=== PATIENT | male | born 1950 | race Caucasian/White ===

== ENCOUNTER 2018-09-30 22:50 | Emergency (ER) | payer OTHER, MEDICAID ==
[~2018-09-30] VITALS: Ht 172.7 cm; Wt 84.4 kg
[~2018-09-30 22:50] MED LIST: COL250 PO; DIAZ5TAB7 PO; FAMO-90 PO; FERR325E14 PO; FURO-570 PO; LACT10SO11 PO; METO25TA PO; MIRABULK PO; PAX10 PO; POTA8TER12 PO; ZAR2.5 PO; [UNRECOGNIZED DRUG - CODE] OT
[2018-09-30 23:55] VITALS: BP 98/63
--- NOTE | 2018-10-01 | NUR ---
PT MATT CHAIR ASSISTED TO LOBBY WITH VSS. ACCOMPANIED BY PHOTOGRAPHY INSTRUCTOR.
--- NOTE | 2018-10-01 00:32 | NUR ---
PT WHEELCHAIRED TO ER BED 11
--- NOTE | 2018-10-01 00:35 | NUR ---
PATIENT SENT TO ED FROM [facility] FOR ABD DISTENTION, RASH IN RIGHT AXILLARY, AND NOT ACTING WITHIN NORMAL BASELINE. PT IS NONVERBAL BUT HAS BEEN GRUNTING ALL DAY AND THAT IS NOT USUAL FOR PT. NO VOMITING. PT HAS HISTORY OF GI BLEED, HERNIA, AND COLOSTOMY. VSS; PATIENT POSITIONED FOR COMFORT; HOB ELEVATED; BEDRAILS UP X2; BED DOWN. ER MD MADE AWARE OF PT STATUS.
[2018-10-01] MEDS ORDERED: NACL 0.9% 1,000 ML IV ONE (01:05)
[2018-10-01 01:37] LABS: BASOPHILS % (AUTO) 0.5 % (0.0-2.0); EOSINOPHILS # (AUTO) 0.5 K/uL (0-0.4); EOSINOPHILS % (AUTO) 6.9 % (0.0-4.0); HEMATOCRIT 40.2 % (36-52); HEMOGLOBIN 13.5 g/dL (12.0-18.0); LYMPHOCYTES # (AUTO) 2.3 K/uL (2.0-11.5); LYMPHOCYTES % (AUTO) 34.4 % (20.5-51.1); MEAN CORPUSCULAR HEMOGLOBIN 31 pg (27-31); MEAN CORPUSCULAR HGB CONC 34 g/dL (33-37); MEAN CORPUSCULAR VOLUME 92.5 fL (80-94); MONOCYTES # (AUTO) 0.9 K/uL (0.8-1.0); MONOCYTES % (AUTO) 12.9 % (1.7-9.3); NEUTROPHILS % (AUTO) 45.3 % (42.2-75.2); PLATELET COUNT (AUTO) 245 K/uL (140-450); RED BLOOD CELL COUNT(AUTO) 4.35 MIL/uL (4.20-6.10); RED CELL DISTRIBUTION WIDTH 13.3 % (11.6-13.7); WHITE BLOOD COUNT (AUTO) 6.6 K/uL (4.8-10.8)
[2018-10-01 01:44] LABS: ANION GAP 8.2 (8-16); CARBON DIOXIDE 30.9 mmol/L (21-32); CREATININE 0.9 mg/dL (0.7-1.3); POTASSIUM 4.1 mmol/L (3.5-5.1)
--- NOTE | 2018-10-01 01:45 | NUR ---
STARTED 20G IV TO RIGHT WRIST. PT TOLERATED WELL.
[2018-10-01 01:52] LABS: ALBUMIN 2.8 g/dL (3.4-5.0); TOTAL BILIRUBIN 0.2 mg/dL (0.0-1.0)
[2018-10-01 01:53] LABS: PROTHROMBIN TIME 9.4 secs (10.8-13.4)
--- NOTE | 2018-10-01 02:40 | NUR ---
OBTAINED URINE USING STRAIGHT CATH. PT TOLERATED WELL.
[2018-10-01 02:49] LABS: APPEARANCE,URINE CLEAR (CLEAR); BILIRUBIN,URINE NEGATIVE (NEGATIVE); BLOOD, URINE NEGATIVE (NEGATIVE); COLOR,URINE YELLOW (YELLOW); LEUKOCYTE ESTERASE ,URINE NEGATIVE (NEGATIVE); NITRITE, URINE NEGATIVE (NEGATIVE); UGLUCOSE NEGATIVE (NEGATIVE)
--- NOTE | 2018-10-01 03:40 | NUR ---
VSS. NO SIGNS OF DISTRESS NOTED. WILL CONTINUE TO MONITOR.
--- NOTE | 2018-10-01 04:50 | NUR ---
DR. GOODMAN AT PT BEDSIDE EXPLAINING RESULTS TO PT AND CAREGIVER. WILL GIVE D/C INSTRUCTIONS AND HELP ASSIST PT TO WHEELCHAIR.
[2018-10-01 05:03] VITALS: BP 118/65
--- NOTE | 2018-10-01 05:03 | NUR ---
Patient discharged with v/s stable. Written and verbal after care instructions given and explained. Patient alert, oriented and verbalized understanding of instructions. Wheel Chair Assisted with by caregiver. All questions addressed prior to discharge. ID band removed. Patient advised to follow up with PMD. Rx of MINERAL OIL 30ML, LACTULOSE 10G/15ML SOLUTION given. Patient educated on indication of medication including possible reaction and side effects. Opportunity to ask questions provided and answered.
== END 2018-10-01 05:03 | disposition home or self-care (01) ==
LOC: MED 22:50
DX: K59.09 Other constipation (principal); K92.0 Hematemesis; K46.9 Unspecified abdominal hernia without obstruction or gangrene; K21.9 Gastro-esophageal reflux disease without esophagitis; I49.9 Cardiac arrhythmia, unspecified; Z79.899 Other long term (current) drug therapy; Z88.5 Allergy status to narcotic agent
CPT/HCPCS: 36415; 74018; 76705; 80053; 81003; 85025; 85610; 85730; 99284; C1758; Q0092

== ENCOUNTER 2018-10-08 10:29 | Inpatient (IN) | payer OTHER, MEDICAID ==
[~2018-10-08] VITALS: Ht 172.7 cm; Wt 93.0 kg
[2018-10-08 10:30] VITALS: BP 111/80
--- NOTE | 2018-10-08 10:30 | NUR ---
68 Y MALE BIB CAREGIVER FROM [place] C/O CONSTIPATION SINCE September. PER CAREGIVER, PT WAS TAKEN TO SEE ON THE AND WAS DIAGNOSED WITH CONSTIPATION. SENT HOME WITH MINEROL OIL AND LACTULOSE. NO RELIEF. CAREGIVER STATES PT IS STILL CONSTIPATED. LAST BM YESTERDAY MEDIUM. CAREGIVER STATES HE HAS BEEN GRUNTING SINCE HIS CONSTIPATION STARTED. PT HAS A HERNIA ON THE LOWER ABDOMEN. COLOSTOMY ON L ABDOMEN SIDE. BED RAIL X 2, BED IS DOWN AND LOCKED, CAREGIVER AT BEDSIDE, ERMD NOTIFIED. PMH-, HTN, LIVER CYSTS, CARDIAC ARRHYTHMIA, HEART MURMUR, LIPOMA RT FLANK, S/P FRACTURE RT HUMERAS, COLOSTOMY, HW PLEURAL EFFUSION GERD
--- NOTE | 2018-10-08 10:34 | NUR ---
PATIENT ASSISTED TO BED 8.
[2018-10-08] MEDS ORDERED: NACL 0.9% 2,000 ML IV SCH (11:27)
[2018-10-08] MEDS ORDERED: PANTOPRAZOLE 40 MG INJ VIAL IVP ONE (11:30)
[2018-10-08] MEDS ORDERED: KETOROLAC 30 MG/ML VIAL IVP ONE (11:30)
[2018-10-08] MEDS ORDERED: ONDANSETRON 4 MG/2 ML VIAL IVP ONE (11:30)
--- NOTE | 2018-10-08 11:30 | NUR ---
DR BROCK AT BEDSIDE
[2018-10-08] MEDS ORDERED: HALOPERIDOL IM 5 MG/ML VIAL IM ONE (12:05)
[2018-10-08] MEDS ORDERED: diphenhydrAMINE 50 MG/ML VIAL IM ONE (12:05)
[2018-10-08 12:40] LABS: MEAN CORPUSCULAR HEMOGLOBIN 32 pg (27-31); MEAN CORPUSCULAR HGB CONC 34 g/dL (33-37)
[2018-10-08 12:44] LABS: BASOPHILS # (AUTO) 0.1 K/uL (0.00-0.22); BASOPHILS % (AUTO) 0.6 % (0.0-2.0); EOSINOPHILS # (AUTO) 0.6 K/uL (0-0.4); EOSINOPHILS % (AUTO) 6.4 % (0.0-4.0); LYMPHOCYTES # (AUTO) 1.8 K/uL (2.0-11.5); LYMPHOCYTES % (AUTO) 19.5 % (20.5-51.1); MEAN CORPUSCULAR VOLUME 92.5 fL (80-94); MONOCYTES # (AUTO) 0.9 K/uL (0.8-1.0); MONOCYTES % (AUTO) 10.4 % (1.7-9.3); NEUTROPHILS # (AUTO) 5.7 K/uL (1.8-7.7); NEUTROPHILS % (AUTO) 63.1 % (42.2-75.2); PLATELET COUNT (AUTO) 254 K/uL (140-450); RED BLOOD CELL COUNT(AUTO) 4.76 MIL/uL (4.20-6.10); RED CELL DISTRIBUTION WIDTH 13.4 % (11.6-13.7); WHITE BLOOD COUNT (AUTO) 9.1 K/uL (4.8-10.8)
[2018-10-08 12:53] LABS: ANION GAP 11.2 (8-16); CREATININE 0.8 mg/dL (0.7-1.3); POTASSIUM 4.2 mmol/L (3.5-5.1)
[2018-10-08 12:59] LABS: ALBUMIN 3.2 g/dL (3.4-5.0); TOTAL BILIRUBIN 0.3 mg/dL (0.0-1.0)
[2018-10-08 13:09] LABS: ACETONE, SERUM NEGATIVE (NEGATIVE)
[2018-10-08 13:11] LABS: APPEARANCE,URINE CLEAR (CLEAR); BILIRUBIN,URINE NEGATIVE (NEGATIVE); BLOOD, URINE NEGATIVE (NEGATIVE); COLOR,URINE YELLOW (YELLOW); LEUKOCYTE ESTERASE ,URINE NEGATIVE (NEGATIVE); NITRITE, URINE NEGATIVE (NEGATIVE); PH,URINE 5.5 (5.0-9.0); UGLUCOSE NEGATIVE (NEGATIVE)
[2018-10-08 13:11] LABS: AMYLASE 37 U/L (25-115); LIPASE 118 U/L (73-393); MAGNESIUM 2.5 mg/dL (1.8-2.4)
[2018-10-08 13:19] LABS: PROTHROMBIN TIME 10.1 secs (10.8-13.4)
--- NOTE | 2018-10-08 14:00 | NUR ---
Patient appears to be resting comfortably in bed. Respirations even and unlabored.
[2018-10-08] MEDS ORDERED: PANT40EC PO (14:42)
[2018-10-08] MEDS ORDERED: TAMS0.4C96 PO (14:43)
[2018-10-08] MEDS ORDERED: POTA20TE15 PO (14:45)
[2018-10-08] MEDS ORDERED: LORA10TA19 PO (14:48)
[2018-10-08] MEDS ORDERED: MULT15LI1 PO (14:50)
[2018-10-08] MEDS ORDERED: NACL 0.9% 1,000 ML IV SCH (15:26)
[2018-10-08] MEDS ORDERED: ACETAMINOPHEN 325 MG TAB PO PRN (15:30)
[2018-10-08] MEDS ORDERED: DOCUSATE SODIUM 100 MG GELCAP PO PRN (15:30)
[2018-10-08] MEDS ORDERED: LORazepam 2 MG/ML VIAL IM/IVP PRN (15:30)
--- NOTE | 2018-10-08 16:18 | NUR ---
Patient will be admitted to care of DR. BUCK. Admited to TELE. Will go to room 107-B. Belongings list completed. Report to CRUZ RIDDLE.
[2018-10-08 16:30] VITALS: BP 123/49
--- NOTE | 2018-10-08 16:30 | NUR ---
RECEIVED PT FROM ER NURSE VIA TERRA, PT IS NON-VERBAL AND A FALL RISK, PT HAS AN IV LINE ON THE RT HAND G. 24 ON SALINE LOCK, PT HAS A COLOSTOMY IN PLACE AND HAS A VENTRAL HERNIA NOTED. VITAL SIGNS TAKEN AND BP IS 123/49, PULSE 60, TEMP. IS 97.3 O2 SATURATION AT 92% AND RESPIRATION IS 18/MIN. PT WAS CLEANED AND COLOSTOMY BAG WAS CHANGED AND MADE COMFORTABLE ON THE BED. NO SIGN OF DISTRESS NOTED AND WILL MONITOR PT.
[2018-10-08 16:32] LABS: PHOSPHORUS 4.5 mg/dL (2.5-4.9); THYROID STIMULATING HORMONE 2.93 uIU/mL (0.34-3.74)
--- NOTE | 2018-10-08 16:45 | NUR ---
O2 AT 2L VIA NC WAS PLACED TO THE PT NOW, NO SIGN OF DISTRESS NOTED AND WILL MONITOR PT.
[2018-10-08] MEDS: DEXT 5% / NACL 0.45% 1,000 ML IV SCH (17:00)
--- NOTE | 2018-10-08 17:00 | NUR ---
PT WAS STARTED ON D5 1/2 NS AT 10ML/HR RATE.
--- NOTE | 2018-10-08 18:52 | NUR ---
U/S OF THE MEDIASTINUM IS BEING DONE TO PT NOW.
--- NOTE | 2018-10-08 19:25 | NUR ---
ENDORSED PT TO DENTIST ATTENDANT NURSE, NUBIA FOR CONTINUITY OF CARE. PT IS STABLE AT THIS TIME.
--- NOTE | 2018-10-08 19:26 | NUR ---
RECEIVED PT FROM ARCADIO RN PT AOX1 NONVERBAL ON BED REST IV ON RT HAND GAUGE #24 INFUSING WELL. COLOSTOMY BAG WITH LIQUID STOOL PT HAS HX OF CONSTIPATION , ON TELEMETRY SB INITIAL ASSESSMENT DONE
[2018-10-08 20:00] VITALS: BP 114/61
[2018-10-08] MEDS: DIAZEPAM 5 MG TAB PO SCH (20:13)
[2018-10-08] MEDS ORDERED: METOPROLOL 25 MG TAB PO SCH (21:00)
--- NOTE | 2018-10-08 21:29 | NUR ---
PT REPOSITINED NOT SIGN OF DISTRESS NOTED COLOSTOMY BAG WITH LIQUID STOOL
[2018-10-09] VITALS: BP 122/61
--- NOTE | 2018-10-09 | NUR ---
PT ON CLOSE OBSERVATION SLEEPING WELL AT THIS TIME NOT SIGN OF DISTRESS NOTED ON TELMETRY SB BBB
--- NOTE | 2018-10-09 03:00 | NUR ---
PT SLEEPING REPOSITIONED Q2H COLOSTOMY BAG IS EMPY ON TELEMETRY SR
[2018-10-09 04:00] VITALS: BP 137/70
--- NOTE | 2018-10-09 05:00 | NUR ---
SPONGE BATH GIVEN LINEN CHANGED NOT DISTRESS NOTED PT COLOSTOMY BAG HAS SEMILIQUID STOOL DOCUMENTED NOT DISTRESS NOTED
--- NOTE | 2018-10-09 05:43 | NUR ---
PT AWAKE HLODING HIS TOY NONVERBAL ON TELMETRY SR COLOSTOMY EMPTY, IV ON RT HAND INFUSING WELL
--- NOTE | 2018-10-09 06:43 | NUR ---
PT DOES NOT COMPLAINT OF DISCOMFORT, PT HAS BEEN REPOSITIONED Q2H REMAIN STABLE AT THIS TIME
[2018-10-09 07:01] LABS: BASOPHILS % (AUTO) 0.6 % (0.0-2.0); EOSINOPHILS # (AUTO) 0.5 K/uL (0-0.4); EOSINOPHILS % (AUTO) 7.3 % (0.0-4.0); HEMOGLOBIN 13.9 g/dL (12.0-18.0); LYMPHOCYTES # (AUTO) 1.4 K/uL (2.0-11.5); LYMPHOCYTES % (AUTO) 21.8 % (20.5-51.1); MEAN CORPUSCULAR HEMOGLOBIN 32 pg (27-31); MEAN CORPUSCULAR HGB CONC 34 g/dL (33-37); MEAN CORPUSCULAR VOLUME 93.3 fL (80-94); MONOCYTES # (AUTO) 0.8 K/uL (0.8-1.0); MONOCYTES % (AUTO) 12.2 % (1.7-9.3); NEUTROPHILS # (AUTO) 3.8 K/uL (1.8-7.7); NEUTROPHILS % (AUTO) 58.1 % (42.2-75.2); PLATELET COUNT (AUTO) 223 K/uL (140-450); RED CELL DISTRIBUTION WIDTH 13.6 % (11.6-13.7); WHITE BLOOD COUNT (AUTO) 6.5 K/uL (4.8-10.8)
--- NOTE | 2018-10-09 07:05 | NUR ---
RECEIVED PT FROM TYING IN MACHINE OPERATOR NURSENUBIA, PT IS AWAKE AND LYING ON THE BED WITH SIDE RAILS UP AND CALL, LIGHT WITHIN REACH, BED ALARM ACTIVATED, FALL PRECAUTION INITIATED, PT HAS AN IV LINE ON THE RT HAND G. 24 WITH NS AT 10ML/HR INFUSING, PT HAS A COLOSTOMY BAG IN PLACE, INTACT WITH DRAIN OF FECES, LOOSE, IN MODERATE AMOUNT, PT IS NON-VERBAL BUT LOOKS INN THE EYE WHEN CALLED BY NAME, RESPIRATION IS EVEN, ON NPO EXCEPT MEDICATIONS STATUS, AND NO SIGN OF DISTRESS NOTED, WILL MONITOR PT.
[2018-10-09 07:30] LABS: ANION GAP 12.2 (8-16); CARBON DIOXIDE 28.4 mmol/L (21-32); CHOL/HDL RATIO 4.3 (1-4.5); CREATININE 0.7 mg/dL (0.7-1.3); MAGNESIUM 2.3 mg/dL (1.8-2.4); PHOSPHORUS 3.8 mg/dL (2.5-4.9); POTASSIUM 4.6 mmol/L (3.5-5.1)
--- NOTE | 2018-10-09 07:49 | NUR ---
PATIENT HAS BEEN SCREENED AND CATEGORIZED HIGH NUTRITION RISK. PATIENT WILL BE SEEN WITHIN 1-2 DAYS OF ADMISSION. 10/09/18-10/10/[address] Addendum: 10/10/18 at [address] CORRECTION: PATIENT HAS BEEN SCREEN AND CATEGORIZED MODERATE NUTRITION RISK. PATIENT WILL BE SEEN AND ASSESSED WITHIN 3-5 DAYS OF ADMISSION 10/11/18 -10/13/[address]
[2018-10-09 08:00] VITALS: BP 124/56
--- NOTE | 2018-10-09 08:20 | NUR ---
PT IS AWKE AND LYING ON THE BED, WITH SIDE RAILS UP AND CALL LIGHT WITHIN REACH, VITAL SIGNS TAKEN AND IS WITHIN NORMAL LIMIT, NO SIGN OF DISTRESS NOTED AND WILL CONTINUE TO MONITOR PT.
[2018-10-09] MEDS ORDERED: POLYETHYLENE GLYCOL 17 GM/PKT PO SCH (09:00)
[2018-10-09] MEDS ORDERED: PANTOPRAZOLE 40 MG TABEC PO SCH (09:00)
[2018-10-09] MEDS: POLYETHYLENE GLYCOL 17 GM/PKT PO SCH (09:45)
[2018-10-09] MEDS: LORATADINE 10 MG TAB PO SCH (09:46)
[2018-10-09] MEDS: DOCUSATE SODIUM 250 MG GELCAP PO SCH ×3 (09:46→18:07)
[2018-10-09] MEDS: TAMSULOSIN 0.4 MG CAP PO SCH (09:46)
[2018-10-09] MEDS: DIAZEPAM 5 MG TAB PO SCH ×2 (09:47→20:59)
--- NOTE | 2018-10-09 09:47 | NUR ---
PT IS AWAKE AND IS LYING ON THE BED WITH SIDE, VITAL SIGNS CHECKED AND BP IS 124/56, PULSE IS 66, O2 SATURATION IS 97%, TEMP. IS 97.9 AND RESPIRATION IS 18/MIN, MEDICATIONS GIVEN, CRUSHED AND ASPIRATION PRECAUTION WAS INITIATED, PT TOLERATED IT, NO SIGN OF DISTRESS NOTED AND WILL MONITOR PT.
--- NOTE | 2018-10-09 11:15 | NUR ---
DR. YUN CAME TO THE PT'S ROOM AND ASSESSED THE PT, SURGEON TALKING TO DR. PEREZ WELL REGARDING THE POC FOR THE PT.
[2018-10-09 12:00] VITALS: BP 131/64
--- NOTE | 2018-10-09 12:30 | NUR ---
PT IS AWAKE AND LYING ON HIS RT LATERAL SIDE, VITAL SIGNS CHECKED AND BP IS 131/64, PULSE IS 68, TEMPERATURE IS 97.7, O2 SATURATION IS 985 AND RESPIRATION IS 18/MIN, NO SIGN OF DISTRESS NOTED TO THE PT. WILL MONITOR.
--- NOTE | 2018-10-09 13:49 | NUR ---
PT IS AWAKE AND MEDICATION WAS GIVEN AND PT TOLERATED IT. NO SIGN OF DISTRESS NOTED. WILL MONITOR PT.
[2018-10-09 16:00] VITALS: BP 123/72
[2018-10-09] MEDS: DEXT 5% / NACL 0.45% 1,000 ML IV SCH (16:05)
--- NOTE | 2018-10-09 16:33 | NUR ---
PT IS AWAKE AND VITAL SIGNS CHECKED DONE AND RESULT IS BP IS 123/72, PULSE IS 72, O2 SATURATION IS 96%, TEMPERATURE IS 97.6 AND RESPIRATION IS 18/MIN, NO SIGN OF DISTRESS NOTED AND WILL MONITOR PT.
--- NOTE | 2018-10-09 17:40 | NUR ---
CALLED JOHANNY ROSE AT [phone] AND ASKED TO OBTAIN CONSENT FOR SURGERY FOR THE PT AND JOHANNY SAID TO CALL [facility] AT [phone] AND LOOK FOR CHON THEODORE WHO IS THE TALLOW MAKER WHO CAN GIVE CONSENT FRO SURGERY FOR THE PT., INFORMED DR. PEREZ.
--- NOTE | 2018-10-09 17:40 | NUR ---
SPOKE TO JOHANNY ROSE, CARE PROVIDER OF PT AND SHE SAID TO CALL [facility] AND ASK FOR CHON THEODORE WHO IS THE CHIEF PASSENGER SHIP STEWARD/STEWARDESS, WHO WILL BE ABLE TO GIVE CONSENT FOR THE SURGERY OF THE PT, DR. PEREZ INFORMED.
--- NOTE | 2018-10-09 18:30 | NUR ---
CAME TO PT'S ROOM AND SAW THAT PT HAD BEEN COUGHING AND SECRETIONS CAN BE HEARD WHEN HE COUGHS, SUCTIONED SOME SECRETIONS, CALLED RT AND ASSISTED IN SUCTIONING, RT ATTEMPTED TO DO NST BUT PT IS RESISTING, O2 SATURATION WAS CHECKED AND IS 95% WITH O2 2L NC. VITALS CHECKED AND IS WITHIN NORMAL LIMIT. WILL MONITOR PT,
--- NOTE | 2018-10-09 19:02 | NUR ---
INFORMED DR. MAGAÑA THAT CONSENT WAS NOT OBTAINED BECAUSE THE PERSON THAT IS AUTHORIZED TO GIVE CONSENT FOR SURGERY FOR THE PT HAS NOT BEEN REACHED.
--- NOTE | 2018-10-09 19:20 | NUR ---
ENDORSED PT TO CONTROL BOARD OPERATOR NURSE, PLACIDO FOR CONTINUITY OF CARE, PT IS STABLE AT THIS TIME.
--- NOTE | 2018-10-09 19:21 | NUR ---
RECEIVED REPORT FROM DAY SHIFT RN ARCADIO FOR CONTINUITY OF CARE. PT IS NON-VERBAL ON 2L O2 VIA NASAL CANNULA. PT UNABLE TO MAKE NEEDS KNOWN, AND UNABLE TO FOLLOW COMMANDS. PT IS BEDBOUND, FALL PRECAUTIONS IN PLACE. PT SKIN IS INTACT, BUT DOES HAVE A COLOSTOMY IN PLACE. PT HAS A 24G IV TO RIGHT HAND, ASYMPTOMATIC AND INTACT. VITAL SIGNS WITHIN NORMAL LIMITS. PT STABLE, FLACC 0, NO SIGNS OF DISTRESS NOTED AT THIS TIME. PT POSITIONED FOR COMFORT. BED IN LOWEST POSITION, BED ALARM ON. WILL CONTINUE TO MONITOR.
[2018-10-09 20:00] VITALS: BP 143/71
--- NOTE | 2018-10-09 21:00 | NUR ---
ADMINISTERED SCHEDULED MEDICATION, PT TOLERATED WELL. NO PROBLEMS NOTED WITH SWALLOWING. NO SIGNS OF DISTRESS NOTED AT THIS TIME. PT POSITIONED FOR COMFORT. BED IN LOWEST POSITION, BED ALARM ON. WILL CONTINUE TO MONITOR.
[2018-10-10] VITALS: BP 105/58
--- NOTE | 2018-10-10 | NUR ---
VITAL SIGNS WITHIN NORMAL LIMITS. PT STABLE, FLACC-0, NO SIGNS OF DISTRESS NOTED AT THIS TIME. PT POSITIONED FOR COMFORT. BED IN LOWEST POSITION, BED ALARM ON. WILL CONTINUE TO MONITOR.
--- NOTE | 2018-10-10 02:23 | NUR ---
PT RESTING, FLACC 0, NO SIGNS OF DISTRESS NOTED AT THIS TIME. PT POSITIONED FOR COMFORT. BED IN LOWEST POSITION, BED ALARM ON. WILL CONTINUE TO MONITOR.
[2018-10-10 04:00] VITALS: BP 111/54
--- NOTE | 2018-10-10 04:00 | NUR ---
VITAL SIGNS WITHIN NORMAL LIMITS. PT STABLE, DENIES PAIN, NO SIGNS OF DISTRESS NOTED AT THIS TIME. PT POSITIONED FOR COMFORT. BED IN LOWEST POSITION, BED ALARM ON. WILL CONTINUE TO MONITOR.
--- NOTE | 2018-10-10 05:15 | NUR ---
PT IV TO RIGHT HAND CAME OUT. STARTED A 20G IV TO RIGHT FOREARM IN ONE TRY. PT TOLERATED WELL.
[2018-10-10 07:27] LABS: BASOPHILS # (AUTO) 0.1 K/uL (0.00-0.22); BASOPHILS % (AUTO) 0.7 % (0.0-2.0); EOSINOPHILS # (AUTO) 0.4 K/uL (0-0.4); EOSINOPHILS % (AUTO) 5.2 % (0.0-4.0); HEMATOCRIT 41.8 % (36-52); HEMOGLOBIN 13.9 g/dL (12.0-18.0); LYMPHOCYTES # (AUTO) 1.8 K/uL (2.0-11.5); LYMPHOCYTES % (AUTO) 24.4 % (20.5-51.1); MEAN CORPUSCULAR HEMOGLOBIN 31 pg (27-31); MEAN CORPUSCULAR HGB CONC 33 g/dL (33-37); NEUTROPHILS # (AUTO) 4.2 K/uL (1.8-7.7); NEUTROPHILS % (AUTO) 55.7 % (42.2-75.2); PLATELET COUNT (AUTO) 218 K/uL (140-450); RED BLOOD CELL COUNT(AUTO) 4.49 MIL/uL (4.20-6.10); RED CELL DISTRIBUTION WIDTH 13.6 % (11.6-13.7); WHITE BLOOD COUNT (AUTO) 7.5 K/uL (4.8-10.8)
--- NOTE | 2018-10-10 07:34 | NUR ---
ENDORSED PT TO DAY SHIFT CRUZ MOSQUEDA FOR CONTINUITY OF CARE, PT IN STABLE CONDITION.
--- NOTE | 2018-10-10 07:36 | NUR ---
RECEIVED BEDSIDE REPORT FROM CRUZ CUMMINS. PATIENT ON TELE MONITOR AND STANDARD PRECAUTIONS IN PLACE. PATIENT APHASIC AND ON 2 L O2 VIA NC, NO DISTRESS NOTED. SKIN INTACT. IV ON R FA 20 G INFUSING D5 1/2 NS AT 10 TKO, IV ASYMPTOMATIC PATENT AND INTACT. PATIENT UNABLE TO AMBULATE AND W COLOSTOMY BAG. BED IN LOW POSITION, CALL LIGHT WITHIN REACH, SIDE RAILS X2 UP. WILL CONTINUE TO MONITOR. Addendum: 10/10/18 at 1721 by Roseline Borrero RN PATIENT ON WOUND CARE BED.
[2018-10-10 08:00] VITALS: BP 116/71
[2018-10-10 08:03] LABS: ANION GAP 14.1 (8-16); CARBON DIOXIDE 25.2 mmol/L (21-32); CREATININE 0.7 mg/dL (0.7-1.3); POTASSIUM 4.3 mmol/L (3.5-5.1)
[2018-10-10 08:04] LABS: MAGNESIUM 2.1 mg/dL (1.8-2.4); PHOSPHORUS 3.3 mg/dL (2.5-4.9)
[2018-10-10] MEDS ORDERED: LANSOPRAZOLE 30 MG CAPDR PO SCH (09:12)
[2018-10-10] MEDS: DIAZEPAM 5 MG TAB PO SCH ×2 (09:13→21:00)
[2018-10-10] MEDS: POLYETHYLENE GLYCOL 17 GM/PKT PO SCH (09:13)
[2018-10-10] MEDS: TAMSULOSIN 0.4 MG CAP PO SCH (09:13)
[2018-10-10] MEDS: LORATADINE 10 MG TAB PO SCH (09:13)
[2018-10-10] MEDS ORDERED: DOCUSATE 100 MG/10 ML UDC PO SCH (09:15)
--- NOTE | 2018-10-10 09:17 | NUR ---
ADMINISTERED SCHEDULED MEDS. PATIENT TOLERATED WELL. WILL CONTINUE TO MONITOR.
--- NOTE | 2018-10-10 09:22 | NUR ---
CALLED [facility] [phone] REGARDING PATIENT AND LEFT A MESSAGE FOR CHON THEODORE, RELAY RECORD CLERK TO OBTAIN CONSENT FOR POSSIBLE SURGERY TODAY. WILL TRY AGAIN LATER. CHARGE NURSE AWARE.
--- NOTE | 2018-10-10 10:30 | NUR ---
Child And Adolescent Therapist Note: I called and spoke with Shoe Packer Michelle Spann from [facility] (intermediate care facility) / . I obtained the following information from Michelle about patient. Patient has been living at [facility] for almost 1 year. He does not have any family. His shell freezing machine operator at [facility] is Chayo Brooks . Chayo should be contacted regarding medical consents. Patient is not able to ambulate. He has a wheelchair and elizabeth lift at [facility]. He was not receiving home health services prior to hospital admission. He is not conserved nor has any family members. [facility] is not able to accommodate patient if he needs abx ivs upon discharge. Michelle drives patient to pcp's office. Pcp also follows up with patient at [facility]. Michelle is able to provide transportation for patient to return to their facility upon discharge, 11/02. Chemotherapist and/or Machine Sneller will follow up as needed.
--- NOTE | 2018-10-10 10:57 | NUR ---
Child Nutrition Director Note: requested assistance with obtaining Chayo Trinh from [facility]'s contact information. I called and spoke with Michelel Spann . I requested Chayo's contact information. Michelle provided me with Chayo's phone number . I provided with Chayo's phone number.
--- NOTE | 2018-10-10 11:05 | NUR ---
WOUND CARE EVALUATION NOTE: REASON FOR EVALUATION: COLOSTOMY CARE SKIN ASSESSMENT DONE WITH THIS 68 Y/O MALE, LLQ ABDOMINAL COLOSTOMY, STOMA PINK, FUNCTIONING, MARINA-STOMA SKIN INTACT. SEMI LIQUID STOOL OUT PUT OBSERVED. RECOMMENDATIONS: -OSTOMY CARE PER PROTOCOL AND DURING OSTOMY CARE PLEASE FOLLOW INSTRUCTION BELOW: -CHECK MARINA STOMA SKIN CONDITION EVERY TIME WAFER CHANGED Q 5 DAYS AND PRN IF DISPLACED -APPLY SKIN PREP TO MARINA-OSTOMY SKIN -APPLY STOMA ADHESIVE PAST TO THE WAFER, NEAR THE EDGE OF STOMA SKIN AREA, PAT FLAT. APPLY SKIN PREP TO MARINA-STOMA SKIN -MAY USE 2- PIECES KALIE OSTOMY DEVICES WITH 1 3/4"(44CM), CUT TO FIT THE STOMA EXACTLY. NO SKIN SHOWING. APPLY PRE-CUT WAFER TO OSTOMY AND ATTACHED POUCH TO WAFER. CHANGE WAFER Q5 DAYS. -EMPTY AND RINSE POUCH WHEN IT IS 1/3 FULL. CHANGE POUCH Q5 DAYS AND PRN IF LEAK ALL ABOVE RECOMMENDATION DISCUSSED WITH PRIMARY RN AND DR. ANDERSON.
[2018-10-10 12:00] VITALS: BP 134/58
--- NOTE | 2018-10-10 12:56 | NUR ---
PATIENT SLEEPING, ON 2 L O2 NC WITH NO DISTRESS NOTED. WILL CONTINUE TO MONITOR.
--- NOTE | 2018-10-10 13:43 | NUR ---
Coach Cleaner Note: I informed Megan Ribeiro from Admitting Dept, Chayo Brooks from [facility] is the person Admitting Dept should contact regarding patient's admission forms and requested for her to include Chayo's contact information on patient's face sheet.
[2018-10-10] MEDS: DOCUSATE 100 MG/10 ML UDC PO SCH ×2 (14:02→17:00)
--- NOTE | 2018-10-10 14:08 | NUR ---
PATIENT BROUGHT TO SURGERY WITH 2 OR NURSES. CONSENT FORM IN CHART.
[2018-10-10] MEDS ORDERED: ROCURONIUM 50 MG/5 ML VIAL IV ONE (14:40)
[2018-10-10] MEDS ORDERED: GLYCOPYRROLATE 0.2 MG/ML VIAL ONE (14:40)
[2018-10-10] MEDS ORDERED: NEOSTIGMINE 1:1000 10 MG/10 ML VIAL ONE (14:40)
[2018-10-10] MEDS ORDERED: DEXAMETHASONE 4 MG/ML VIAL ONE (14:40)
[2018-10-10] MEDS ORDERED: LIDOCAINE 2% 100 MG/5 ML SYR IVP ONE (14:40)
[2018-10-10] MEDS ORDERED: PROPOFOL 200 MG/20 ML VIAL IV ONE (14:40)
[2018-10-10] MEDS ORDERED: SUCCINYLCHOLINE CHLORIDE 200 MG/10 ML VIAL IVP ONE (14:40)
[2018-10-10] MEDS ORDERED: ePHEDrine 50 MG/ML VIAL ONE (14:40)
[2018-10-10] MEDS ORDERED: KETOROLAC 30 MG/ML VIAL ONE (14:40)
[2018-10-10] MEDS ORDERED: DESFLURANE 240 ML BTL INH ONE (14:40)
[2018-10-10] MEDS ORDERED: MIDAZOLAM 2 MG/2 ML VIAL ONE (14:52)
[2018-10-10] MEDS ORDERED: fentaNYL 0.05 MG/ML VIAL ONE (14:52)
[2018-10-10] MEDS ORDERED: BUPIVACAINE-MPF/EPI 0.5% 30 ML VIAL INJ ONE (14:54)
[2018-10-10] MEDS ORDERED: ceFAZolin 1,000 MG VIAL ONE (14:54)
[2018-10-10] MEDS: DEXT 5% / NACL 0.45% 1,000 ML IV SCH (16:05)
[2018-10-10] MEDS ORDERED: HYDROmorphone 1 MG/ML AMP IVP PRN ×2 (17:25→17:45)
[2018-10-10] MEDS ORDERED: ONDANSETRON 4 MG/2 ML VIAL IVP PRN (17:25)
[2018-10-10] MEDS ORDERED: KETOROLAC 30 MG/ML VIAL IM PRN (17:45)
[2018-10-10 18:15] VITALS: BP 130/95
--- NOTE | 2018-10-10 18:15 | NUR ---
RECEIVED PT FROM OR, OBTAINED REPORT FROM PCAU NURSE, PT IS OPEN EYES, APHASIC, UNABLE TO FOLLOW COMMANDS, VSS, FLACC 0, NO S/S OF DISTRESS, CLEAR LUNG SOUNDS ARLETTE, ON SIMPLE MASK AT 6 L, O2 SAT 95%, NO S/S OF CHEST PAIN, SR ON MEDICAL RESEARCH ASSISTANT, SOFT ABDOMEN WITH COLOSTOMY, SURGICAL WOUND TO THE MEDDLE OF ABDOMEN WITH BASILIO DRAIN, F/C PLACED AT OR, CLEAR YELLOW URINE NOTED VIA GRAVITY, SKIN IS WARM AND DRY TO TOUCH, IV SITE TO RIGHT FOREARM 20GA, PATENT AND SL, CONTRACTURES TO ALL EXTREMITIES NOTED. HOB ELEVATED TO 30 DEGREES, SAFETY MEASURES IN PLACE, WILL CONTINUE TO MONITOR.
--- NOTE | 2018-10-10 18:30 | NUR ---
OBTAINED REPORT FROM FOOD STAND MANAGER VIA TELEPHONE.
--- NOTE | 2018-10-10 18:45 | NUR ---
DR. YUN CAME IN TO SEE PT AT BEDSIDE, WILL FOLLOW UP WITH NEW ORDERS.
[2018-10-10] MEDS: PIPER/TAZO 3.375GM/D5W PREMIX 50 ML IV SCH ×2 (18:53→23:03)
--- NOTE | 2018-10-10 19:10 | NUR ---
REPORT GIVEN TO VICE PRESIDENT OF RECRUITING NURSE FOR CONTINUE OF CARE, PT IS IN STABLE CONDITION AT THIS TIME.
--- NOTE | 2018-10-10 19:11 | NUR ---
RECEIVED REPORT FROM AM SHIFT. PT NONVERBAL. OPENS EYES SPONTANEOUSLY. LUNG SOUNDS CLEAR BILAT. ON SIMPLE MASK 6LPM. NPO EXCEPT MEDS AT THIS TIME. SR ON MONITOR. NO EDEMA PRESENT. ABD SOFT NONTENDER. BOWEL SOUNDS HYPOACTIVE. COLOSTOMY TO LUQ. F/C IN PLACE. BLADDER NONDISTENDED. R FA 20 G. DRESSING INTACT. EXTREMITIES CONTRACTED. SURGICAL INCISITON MIDLINE ABD NOTED. BED IN LOWEST POSITION. HOB 30. SIDE RAILS UP X 4. WILL CONTINUE TO MONITOR.
[2018-10-10 20:00] VITALS: BP 113/68
--- NOTE | 2018-10-10 20:18 | NUR ---
DR. MAGAÑA AT BEDSIDE AT THIS TIME. UPDATED ON PTS CURRENT CONDITION. WILL CONTINUE TO FOLLOW UP ANY ADDITIONAL ORDERS.
--- NOTE | 2018-10-10 20:28 | NUR ---
LOC NON AROUSABLE POST OP HERNIA SURGERY UNABLE TO FOLLOW COMMANDS FOR INCENTIVE SPIROMETRY THERAPY LOOM INSPECTOR WILL ATTEMPT AT A LATER TIME
--- NOTE | 2018-10-10 20:40 | NUR ---
PT ABLE TO TRACK MOVEMENTS. APHASIC. NO SIGNS OF ACUTE DISTRESS AT THIS TIME. DRESSING TO MIDLINE ABD CLEAN DRY INTACT, BASILIO DRAIN IN PLACE
--- NOTE | 2018-10-10 23:19 | NUR ---
VALIUM NOT GIVEN AT THIS TIME. PT SLEEPING. MADE AWARE
[2018-10-11] VITALS (8 sets, daily range): BP systolic 102–147; BP diastolic 55–98
--- NOTE | 2018-10-11 00:24 | NUR ---
PT RESTING QUIETLY AT THIS TIME. NO SIGNS OF ACUTE DISTRESS NOTED.
--- NOTE | 2018-10-11 02:27 | NUR ---
PT TURNED AND REPOSITIONED AT THIS TIME. DRESSING ABD CLEAN DRY INTACT. BASILIO DRAIN PRESENT
[2018-10-11] MEDS: PIPER/TAZO 3.375GM/D5W PREMIX 50 ML IV SCH ×2 (05:13→17:04)
--- NOTE | 2018-10-11 05:36 | NUR ---
LAB AT BEDSIDE AT THIS TIME FOR AM DRAWS
[2018-10-11] MEDS ORDERED: LANSOPRAZOLE 30 MG CAPDR PO SCH (06:30)
--- NOTE | 2018-10-11 06:34 | NUR ---
PREVACID NOT GIVEN AT THIS TIME. PT UNABLE TO SWALLOW
[2018-10-11 06:47] LABS: ANION GAP 13.8 (8-16); CARBON DIOXIDE 25.8 mmol/L (21-32); CREATININE 0.8 mg/dL (0.7-1.3); POTASSIUM 4.6 mmol/L (3.5-5.1)
[2018-10-11 06:52] LABS: BASOPHILS % (AUTO) 0.1 % (0.0-2.0); EOSINOPHILS # (AUTO) 0.1 K/uL (0-0.4); EOSINOPHILS % (AUTO) 0.7 % (0.0-4.0); HEMATOCRIT 38.2 % (36-52); LYMPHOCYTES # (AUTO) 1.2 K/uL (2.0-11.5); LYMPHOCYTES % (AUTO) 13.2 % (20.5-51.1); MEAN CORPUSCULAR HEMOGLOBIN 32 pg (27-31); MEAN CORPUSCULAR HGB CONC 34 g/dL (33-37); MEAN CORPUSCULAR VOLUME 93.1 fL (80-94); MONOCYTES # (AUTO) 1.2 K/uL (0.8-1.0); MONOCYTES % (AUTO) 12.3 % (1.7-9.3); NEUTROPHILS # (AUTO) 6.9 K/uL (1.8-7.7); NEUTROPHILS % (AUTO) 73.7 % (42.2-75.2); PLATELET COUNT (AUTO) 218 K/uL (140-450); RED CELL DISTRIBUTION WIDTH 13.4 % (11.6-13.7); WHITE BLOOD COUNT (AUTO) 9.4 K/uL (4.8-10.8)
--- NOTE | 2018-10-11 07:22 | NUR ---
ENDORSED CARE TO INCOMING SHIFT FOR CONTINUITY OF CARE.
--- NOTE | 2018-10-11 07:25 | NUR ---
RECEIVED REPORT FROM PM SHIFT. PT NONVERBAL. OPENS EYES SPONTANEOUSLY. BEDSIDE MONITOR SHOWS SR.ON SIMPLE MASK 6LPM, LUNG SOUNDS CLEAR BILAT. ABD SOFT NONTENDER. BOWEL SOUNDS ACTIVE. COLOSTOMY TO LUQ. BASILIO DRAIN IN PLACE. F/C IN PLACE.NPO EXCEPT MEDS AT THIS TIME. R FA 20 G. DRESSING INTACT. EXTREMITIES CONTRACTED.BED IN LOWEST POSITION. HOB ELEVATED 30. SIDE RAILS UP X 4. WILL CONTINUE TO MONITOR.
--- NOTE | 2018-10-11 08:30 | NUR ---
TURNED AND REPOSITIONED PT. ORAL CARE AND MARINA CARE GIVEN.
[2018-10-11] MEDS: LORATADINE 10 MG TAB PO SCH (09:02)
[2018-10-11] MEDS: DIAZEPAM 5 MG TAB PO SCH ×2 (09:03→20:12)
[2018-10-11] MEDS: TAMSULOSIN 0.4 MG CAP PO SCH (09:03)
[2018-10-11] MEDS: DOCUSATE 100 MG/10 ML UDC PO SCH ×3 (09:03→16:35)
[2018-10-11] MEDS: POLYETHYLENE GLYCOL 17 GM/PKT PO SCH (09:04)
--- NOTE | 2018-10-11 09:58 | NUR ---
REMOVED PT FROM MASK AND PLACED ON 2LPM NC
[2018-10-11] MEDS ORDERED: PROBIOTIC SCREEN 1 EA MISC MC PRN (10:45)
--- NOTE | 2018-10-11 11:00 | NUR ---
COLLECT STOOL SAMPLE FROM COLOSTOMY, SENT TO LAB, PT HAS PRODUCTIVE COUGH. O2 SATS 95S%.
--- NOTE | 2018-10-11 13:06 | NUR ---
while feeding pt, pt throw up with coffee ground emesis noted. [id number] and o2 sats decreased to 86%, RT in unit suctioned pt. o2 sats increased to 95-97 %, hr decreased to 95s. charge nurse made aware. notified residence dr. salmon.
[2018-10-11] MEDS ORDERED: PANTOPRAZOLE 40 MG INJ VIAL IVP SCH (13:07)
[2018-10-11] MEDS: ONDANSETRON 4 MG/2 ML VIAL IM/IVP PRN (14:12)
--- NOTE | 2018-10-11 14:31 | NUR ---
notified dr. salmon pt does not have a good urine output during my shift. per dr. salmon, do bladder scan. bladder scan done showing urine 11cc, notified dr. salmon.
[2018-10-11] MEDS: DEXT 5% / NACL 0.45% 1,000 ML IV SCH (16:05)
--- NOTE | 2018-10-11 16:15 | NUR ---
spoke to dr. salmon, pt urine output still low, per dr. salmon, continue the f/c until tonight to see how patient is doing. hold picc line insertion for now and current iv site still infusing well.
--- NOTE | 2018-10-11 17:48 | NUR ---
TURNED AND REPOSITIONED PT, CLEANED PT. PT DOES NOT WANT TO BE SUCTIONED WHICH MADE HIM IRRITATED AND O2 SATS DECREASED TO 85%, O2 SATS INCREASED TO 90-95% IF NO SUCTION.
--- NOTE | 2018-10-11 19:09 | NUR ---
REPORT GIVEN TO PM NURSE
--- NOTE | 2018-10-11 19:15 | NUR ---
RECEIVED REPORT FROM DAY NURSE. NO ACUTE DISTRESS NOTED.
--- NOTE | 2018-10-11 19:30 | NUR ---
PT AWAKE SITTING UP IN BED, UNABLE TO FOLLOW COMMANDS; HISTORY OF CP. LUNGS DIMINISHED BREATH SOUNDS NC 4L. S1 S2, GENERALIZED TRACE EDEMA, RIGHT EXTREMITY +2 EDEMA. ABD SOFT ROUND. COLOSTOMY TO LLQ, STOMA MOIST PINK. MCLEOD CATH IN PLACE DRAINING TO GRAVITY; HODA URINE. SKIN PINK WARM DRY , S/P VENTRAL HERNIA REPAIR, MID ABD DRESSING IN PLACE CDI, WITH BASILIO DRAIN. SCDS IN PLACE. IV TO L WRIST 24 G PATENT INTACT. NO ACUTE DISTRESS NOTED. WILL CONTINUE TO OBSERVE.
[2018-10-11] MEDS: PANTOPRAZOLE 40 MG INJ VIAL IVP SCH (20:11)
--- NOTE | 2018-10-11 23:45 | NUR ---
RECEIVED PATIENT FROM ICU WITH FC IN PLACE DRAINING WELL. COLONOSTOMY BAG IN PLACE AND BASILIO DRAIN. RESPIRATION EVEN AND UNLABORED. HOB ELEVATED. WITH 02 2L NC . PATIENT HAD BROWN STUFF ON HIS MOUTH UPON RECEIVING TO THE UNIT. V/S TAKEN WNL. NO S/S OF DISTRESS NOTED. WILL CONTINUE TO MONITOR.
[2018-10-12] VITALS: BP 108/72
[2018-10-12] MEDS: PIPER/TAZO 3.375GM/D5W PREMIX 50 ML IV SCH ×4 (00:16→17:28)
[2018-10-12] MEDS ORDERED: PIPERACILLIN/TAZOBACTAM 3.375 GM VIAL IV ONE (00:19)
--- NOTE | 2018-10-12 02:00 | NUR ---
TURNED AND REPOSITIONED PATIENT IN BED. HOB ELEVATED. NO S/S OF DISTRESS NOTED. WILL CONTINUE TO MONITOR.
[2018-10-12 04:00] VITALS: BP 146/96
--- NOTE | 2018-10-12 04:00 | NUR ---
PATIENT VOMITTED A COFFEE GROUND AND SUCTIONED WITH [address] HOROWITZ NO ORDERS MADE. HOB ELEVATED. V/S TAKEN AND RECORDED.[address] PATIENT WAS RESPONSIVE. AWAKE, AND FOLLOW SIMPLE COMMANDS. WILL CONTINUE TO MONITOR.
[2018-10-12] MEDS: ONDANSETRON 4 MG/2 ML VIAL IM/IVP PRN (04:17)
--- NOTE | 2018-10-12 04:30 | NUR ---
AM CARE DONE. TURNED AND REPOSITIONED. HOB ELEVATED. NO S/S OF DISTRESS NOTED. WILL CONTINUE TO MONITOR.
--- NOTE | 2018-10-12 05:50 | NUR ---
WILL CONTINUE MCLEOD CATH PER DR. HOROWITZ. CN AWARE.
[2018-10-12] MEDS: DEXT 5% / NACL 0.45% 1,000 ML IV SCH ×4 (06:25→22:05)
--- NOTE | 2018-10-12 06:46 | NUR ---
NOTIFIED DR. DILLON ABOUT PATIENT CONDITION VOMITING COFFEE GROUND EMESIS AND LOW URINE OUTPUT. WILL FOLLOW-UP PER MD. MEHRAN GARY.
--- NOTE | 2018-10-12 07:34 | NUR ---
REPORT GIVEN TO AM SHIFT RN AT BEDSIDE. CALL LIGHT WITHIN REACH. PATIENT IN STABLE CONDITION.
--- NOTE | 2018-10-12 07:35 | NUR ---
PATIENT SITTING UP IN BED. BELT NOTCHER REPORTS HAVING COFFEE GROUND EMESIS. MD ALREADY AWARE. AAOX1, APHASIC, SKIN COLOR APPROPRIATE TO ETHNICITY, WARM TO TOUCH. HAS RIGHT ABD S/P VENTRAL HERNIA REPAIR WITH BASILIO DRAIN. DRESSING IS DRY AND INTACT. MCLEOD CATHETER IN PLACE. RESPIRATIONS EVEN, UNLABORED, ON O2 2L/MIN VIA NC. SAFETY MEASURES IN PLACE, CALL LIGHT WITHIN REACH. WILL CONTINUE TO MONITOR.
[2018-10-12 07:45] LABS: CARBON DIOXIDE 30.6 mmol/L (21-32); CREATININE 0.9 mg/dL (0.7-1.3); POTASSIUM 3.6 mmol/L (3.5-5.1)
[2018-10-12 08:00] VITALS: BP 113/79
--- NOTE | 2018-10-12 08:18 | NUR ---
Pt asleep at this time no IS.
[2018-10-12] MEDS ORDERED: NACL 0.9% 250 ML IV SCH (08:50)
[2018-10-12 08:53] LABS: BASOPHILS # (AUTO) 0.1 K/uL (0.00-0.22); BASOPHILS % (AUTO) 0.5 % (0.0-2.0); EOSINOPHILS # (AUTO) 0.1 K/uL (0-0.4); EOSINOPHILS % (AUTO) 1.4 % (0.0-4.0); HEMATOCRIT 36.1 % (36-52); HEMOGLOBIN 12.3 g/dL (12.0-18.0); LYMPHOCYTES % (AUTO) 10.3 % (20.5-51.1); MEAN CORPUSCULAR HEMOGLOBIN 32 pg (27-31); MEAN CORPUSCULAR HGB CONC 34 g/dL (33-37); MEAN CORPUSCULAR VOLUME 92.6 fL (80-94); MONOCYTES # (AUTO) 1.5 K/uL (0.8-1.0); MONOCYTES % (AUTO) 15.7 % (1.7-9.3); NEUTROPHILS # (AUTO) 6.8 K/uL (1.8-7.7); NEUTROPHILS % (AUTO) 72.1 % (42.2-75.2); PLATELET COUNT (AUTO) 228 K/uL (140-450); RED CELL DISTRIBUTION WIDTH 13.5 % (11.6-13.7); WHITE BLOOD COUNT (AUTO) 9.4 K/uL (4.8-10.8)
[2018-10-12] MEDS: DIAZEPAM 5 MG TAB PO SCH ×2 (09:00→21:41)
[2018-10-12] MEDS: POLYETHYLENE GLYCOL 17 GM/PKT PO SCH (09:00)
[2018-10-12] MEDS: TAMSULOSIN 0.4 MG CAP PO SCH (09:00)
[2018-10-12] MEDS: LORATADINE 10 MG TAB PO SCH (09:00)
[2018-10-12] MEDS: PANTOPRAZOLE 40 MG INJ VIAL IVP SCH ×2 (10:04→21:42)
[2018-10-12] MEDS: DOCUSATE 100 MG/10 ML UDC PO SCH ×3 (10:06→17:00)
--- NOTE | 2018-10-12 10:14 | NUR ---
PATIENT SITTING IN BED. CONTINUES TO HAVE INTERMITTENT COFFEE GROUND EMESIS. ORAL CARE PROVIDED. SCHEDULED IV MEDICATIONS DUE GIVEN. WILL CONTINUE TO MONITOR.
[2018-10-12 12:00] VITALS: BP 135/76
--- NOTE | 2018-10-12 12:54 | NUR ---
PATIENT SITTING IN BED COMFORTABLY. NO DISTRESS NOTED. PERFORMED ORAL CARE. SCHEDULED IV MEDICATIONS DUE GIVEN. WILL CONTINUE TO MONITOR.
--- NOTE | 2018-10-12 14:02 | NUR ---
PATIENT SITTING DOWN IN BED SLEEPING, AROUSABLE BY VOICE. NO DISTRESS NOTED. CONDITION UNCHANGED. ORAL CARE PERFORMED. WILL CONTINUE TO MONITOR.
[2018-10-12 16:00] VITALS: BP 110/77
--- NOTE | 2018-10-12 16:09 | NUR ---
PATIENT SITTING IN BED. NO DISTRESS NOTED. FLACC 0. WOUND DRESSING CHANGED PER DR. YUN VERBAL ORDERS WHO IS CURRENTLY ON UNIT. COLOSTOMY BAG CHANGED. PATIENT TOLERATED WELL. WILL CONTINUE TO MONITOR.
--- NOTE | 2018-10-12 17:21 | NUR ---
NO IS AT THIS TIME. SPOKE WITH RN, RN STATED THAT THE PT WAS VOMITING RECENTLY.
--- NOTE | 2018-10-12 17:28 | NUR ---
PATIENT SITTING IN BED. NO DISTRESS NOTED. CONDITION UNCHANGED. SCHEDULED MEDICATIONS DUE GIVEN. WILL CONTINUE TO MONITOR.
--- NOTE | 2018-10-12 19:27 | NUR ---
GAVE REPORT TO PHARMACOLOGIST NURSE FOR CONTINUITY OF CARE. PATIENT IN STABLE CONDITION.
--- NOTE | 2018-10-12 19:27 | NUR ---
RECEIVED REPORT FORM KRISTINA ARROYO DAYSHIFT NURSE AT BEDSIDE FOR CONTINUITY OF CARE, PT IN STABLE CONDITION. ALL FALLS AND ASPIRATION PRECAUTIONS IN PLACE.
[2018-10-12 20:00] VITALS: BP 117/76
--- NOTE | 2018-10-12 20:00 | NUR ---
PT IN LOW BED WITH ALL FALLS AND ASPIRATION PRECAUTIONS IN PLACE. PT HAS MCLEOD CATHETER IN PLACE AND DRAINING SMALL AMOUNT OF YELLOW URINE. PT ALSO HAS BASILIO DRAIN INTACT WITH A VERY SMALL AMOUNT OF BLOOD NOTED IN DRAIN. DRESSING FOR ABDOMEN IN PLACE NO REDNESS OR DRAINAGE AROUND BANDAGE. PT HAS 2 LITERS OF SUPPLEMENTAL O2 VIA N/C. AND ILEOSTOMY BAG IN PLACE NO DRAINAGE NOTED. V/S FOLLOWS T 97.3 P 100 R 18 B/P 117/76. PT HAS FLACC-O. WILL CONTINUE TO MONITOR FOR PAIN, AND VOMITING.
--- NOTE | 2018-10-12 21:30 | NUR ---
SPOKE WITH DR. HOROWITZ REGARDING PT ORDER FOR P.O. VALIUM WHICH IS HOME MEDICATION. SHE MADE PT NPO EXCEPT MEDS. PT GIVEN VALIUM CRUSHED WITH A SMALL AMOUNT OF APPLE SAUCE WHICH HE SWALLOWED WITH NO ISSUES. PRIMARY NURSE ASKED DR. HOROWITZ REGARDING ORDER FOR NG TUBE AND PICC LINE. SHE SAID THAT WE WILL WAIT FOR CONSULT WITH DR. YUN. BUT TO CONTINUE MONITORING PT FOR VOMITING AND KEP HER UPDATED. PT HAS NOT VOMITED THIS SHIFT, BUT WILL PROVIDE FREQUENT ROUNDS AND MONITOR PT FOR COFFEE GROUND EMESIS. PT TURNED CHANGED AND REPOSITIONED. MOUTH CARE PROVIDED AND ALL FALLS AND ASPIRATIONS PRECAUTIONS IN PLACE.
[2018-10-13] VITALS: BP 117/79
--- NOTE | 2018-10-13 00:45 | NUR ---
PT IN BED NO S/S OF PAIN OR DISTRESS NOTED. V/S S FOLLOWS T 98.3 P 79 R 18 B/P 114/59 02 945 ON ROOM AIR. MOUTH IS CLEAN, NO S/S OF VOMITING. ALL FALLS AND ASPIRATION PRECAUTIONS IN PLACE.
[2018-10-13] MEDS: PIPER/TAZO 3.375GM/D5W PREMIX 50 ML IV SCH ×4 (01:35→18:00)
[2018-10-13 04:00] VITALS: BP 109/62
--- NOTE | 2018-10-13 04:00 | NUR ---
PT IN BED TURNED, CHANGED AND REPOSITIONED. ORAL CARE PROVIDED NO VOMITING NOTED. ALL FALLS, AND ASPIRATIONS IN PLACE. V/S FOLLOWS T 98.0 P 81 R 18 B/P 117/79 02 98 WITH 2 LITERS 02 VIA N/C. NO S/S OF PAIN OR DISTRESS NOTED.
--- NOTE | 2018-10-13 06:04 | NUR ---
PT IN BED SLEEPING NO S/S OF PAIN OR DISTRESS NOTED, ZOSYN HUNG AND RUNNING AT 100MLS/HR. ALL FALLS AND ASPIRATIONS PRECAUTIONS IN PLACE.
[2018-10-13 07:16] LABS: BASOPHILS % (AUTO) 0.5 % (0.0-2.0); EOSINOPHILS # (AUTO) 0.6 K/uL (0-0.4); EOSINOPHILS % (AUTO) 6.5 % (0.0-4.0); HEMATOCRIT 32.7 % (36-52); HEMOGLOBIN 11.3 g/dL (12.0-18.0); LYMPHOCYTES # (AUTO) 1.8 K/uL (2.0-11.5); LYMPHOCYTES % (AUTO) 20.2 % (20.5-51.1); MEAN CORPUSCULAR HEMOGLOBIN 32 pg (27-31); MEAN CORPUSCULAR HGB CONC 35 g/dL (33-37); MEAN CORPUSCULAR VOLUME 92.7 fL (80-94); MONOCYTES # (AUTO) 1.3 K/uL (0.8-1.0); MONOCYTES % (AUTO) 14.8 % (1.7-9.3); NEUTROPHILS # (AUTO) 5.2 K/uL (1.8-7.7); PLATELET COUNT (AUTO) 214 K/uL (140-450); RED BLOOD CELL COUNT(AUTO) 3.52 MIL/uL (4.20-6.10); RED CELL DISTRIBUTION WIDTH 13.4 % (11.6-13.7)
--- NOTE | 2018-10-13 07:30 | NUR ---
REPORT GIVEN TO KRISTINA ARROYO DAYSHIFT NURSE AT BEDSIDE FOR CONTINUITY OF CARE, PT IN STABLE CONDITION,.
--- NOTE | 2018-10-13 07:31 | NUR ---
RECEIVED REPORT FROM BINDING CUTTER NURSE. PATIENT SITTING IN BED COMFORTABLY. NO DISTRESS NOTED. NO VOMITING THROUGHOUT BINDING CUTTER PER NIGHT RN REPORTS. AAOX1, CALM, COOPERATIVE, SKIN COLOR APPROPRIATE TO ETHNICITY, WARM TO TOUCH. HAS ABD SURGICAL WOUND S/P VENTRAL HERNIA REPAIR WITH BASILIO DRAIN IN PLACE. MCLEOD CATHETER IN PLACE. PATIENT ON O2 2L/MIN VIA NC. REVIEWED PLAN OF CARE WITH PATIENT. UNABLE TO COMPREHEND. SAFETY MEASURES IN PLACE, CALL LIGHT WITHIN REACH. WILL CONTINUE TO MONITOR.
--- NOTE | 2018-10-13 07:50 | NUR ---
RECEIVED PATIENT ON 2L NASAL CANNULA, PULSE OX SAT 96%. NO RESPIRATORY DISTRESS NOTED AT THIS TIME. WILL CONTINUE TO MONITOR.
[2018-10-13 07:58] LABS: ANION GAP 9.5 (8-16); CREATININE 0.7 mg/dL (0.7-1.3); POTASSIUM 3.5 mmol/L (3.5-5.1)
[2018-10-13 08:00] VITALS: BP 109/67
[2018-10-13] MEDS: DEXT 5% / NACL 0.45% 1,000 ML IV SCH ×2 (08:05→18:05)
[2018-10-13] MEDS: PANTOPRAZOLE 40 MG INJ VIAL IVP SCH ×2 (10:01→20:16)
[2018-10-13] MEDS: DOCUSATE 100 MG/10 ML UDC PO SCH ×3 (10:01→17:00)
[2018-10-13] MEDS: DIAZEPAM 5 MG TAB PO SCH ×2 (10:02→20:15)
[2018-10-13] MEDS: LORATADINE 10 MG TAB PO SCH (10:02)
[2018-10-13] MEDS: POLYETHYLENE GLYCOL 17 GM/PKT PO SCH (10:02)
[2018-10-13] MEDS: TAMSULOSIN 0.4 MG CAP PO SCH (10:04)
--- NOTE | 2018-10-13 10:13 | NUR ---
PATIENT SITTING IN BED. NO DISTRESS NOTED. NO VOMITING NOTED. SCHEDULED MEDICATIONS DUE GIVEN WITH APPLE SAUCE. NO VOMITING NOTED AFTER MEDICATION ADMINISTRATION. WILL CONTINUE TO MONITOR.
--- NOTE | 2018-10-13 10:59 | NUR ---
WOUND CARE RE-EVALUATION NOTE: REASON FOR RE-EVALUATION: S/P MID-ABDOMINAL SURGICAL WOUND -S/P MID ABDOMINAL WITH MULTIPLE DAPHNEY, AREA IS CLEAN, DRESSING DRY AND CLEAN. -LOWER ABDOMEN BASILIO DRAIN IN PLACE MODERATE AMOUNT SANGUINOUS DRAINAGE. RECOMMENDATION: -CLEANSE MID ABDOMINAL SURGICAL WOUND WITH NS, PAT DRY, APPLY DRY DRESSING AND SECURE WITH TAPE QD AND PRN IF SOILING -APPLY 4X4 DRAIN SPONGE TO BASILIO DRAIN SITE QD AND PRN IF SOILING. ALL ABOVE INFORMATION DISCUSSED WITH PRIMARY RN
[2018-10-13 12:00] VITALS: BP 125/63
[2018-10-13] MEDS ORDERED: TPN PER PHARMACY MC PRN (12:35)
[2018-10-13] MEDS: GAUZE TP SCH (13:00)
[2018-10-13] MEDS: SIMETHICONE 40 MG/0.6 ML PO SCH ×2 (13:00→17:00)
--- NOTE | 2018-10-13 14:00 | NUR ---
DR. YUN AT BEDSIDE. LOOKED AT DRESSING AND EVALUATED ILLEOSTOMY. PATIENT STARTED TO VOMIT, ORAL SUCTION PERFORMED AND INSERTED NGTUBE AND PLACED ON INTERMITTENT SUCTION. MEDICATIONS NOT GIVEN AT THIS TIME DUE TO PATIENT VOMITING AND DR. YUN SCHEDULED SBO FOLLOW THROUGH. WILL CONTINUE TO MONITOR.
--- NOTE | 2018-10-13 14:24 | NUR ---
10/13/18 RD INITIAL ASSESSMENT COMPLETED PLEASE REFER TO NUTRITION ASSESSMENT UNDER CARE ACTIVITY FOR ESTIMATED NUTRITIONAL NEEDS. 1. RECOMMEND STARTING TPN 2. WHEN PATIENT IS MEDICALLY STABLE, CONSIDER ADVANCING DIET AFTER SWALLOW EVALUATION 3. RD TO FOLLOW-UP 2-3 DAYS, HIGH RISK JANIS DAMON, RD
--- NOTE | 2018-10-13 15:25 | NUR ---
PATIENT PULLED OUT NGTUBE, WILL NOTIFY MD AND TRY TO PLACE ANOTHER NGTUBE.
[2018-10-13 16:00] VITALS: BP 118/80
--- NOTE | 2018-10-13 17:03 | NUR ---
NEW NGTUBE INSERTED. NOTIFIED DR. DILLON REGARDING PERIPHERAL IV LINE HAS INFILTRATED AND REGARDING TPN TOMORROW. DR. DILLON VERBALIZED UNDERSTANDING AND WILL NOTIFY DR. ANDERSON. PATIENT ALSO VOIDING WITH MULTIPLE WET PADS TODAY, ESTIMATED VOID IS A LEAST 500 ML. MCLEOD CATH IN PLACE, HOWEVER IS LEAKING. NOTIFIED DR. DILLON AND DR. DILLON TO NOTIFY DR. ANDERSON ON POSSIBLE MCLEOD CATHETER REMOVAL. WILL CONTINUE TO MONITOR.
--- NOTE | 2018-10-13 17:36 | NUR ---
SOFT RESTRAINTS PLACED DUE TO PATIENT PULLING OUT NGTUBE PER MD ORDERS. SCHEDULED MEDICATIONS DUE NOT GIVEN AT THIS TIME DUE TO SBO FOLLOW-THOUGH ABOUT TO BE PERFORMED AND PATIENT IS VOMITING. WILL CONTINUE TO MONITOR.
--- NOTE | 2018-10-13 17:50 | NUR ---
CALLED [facility] AT [phone] TO ASK FOR CONSENT FOR PICC/CENTRAL LINE PLACEMENT PER DR. ANDERSON ORDERS. NO ANSWER. LEFT A VOICE MAIL. NOTIFIED DR. ANDERSON. VERBALIZED UNDERSTANDING. MD ALSO AWARE OF NO IV ACCESS AT THIS TIME DUE TO PATIENT BEING A HARD STICK. VERBALIZED UNDERSTANDING. IV MEDICATIONS SCHEDULED AT THIS TIME NOT GIVEN.
--- NOTE | 2018-10-13 19:37 | NUR ---
GAVE REPORT TO AIR VALUE TESTER NURSE FOR CONTINUITY OF CARE. PATIENT IN STABLE CONDITION.
--- NOTE | 2018-10-13 19:54 | NUR ---
RECEIVED REPORT FROM CRUZ ACEVEDO DAYSHIFT NURSE AT BEDSIDE FOR CONTINUITY OF CARE,PT INSTABLE CONDITION. ALL FALLS AND ASPIRATIONS PRECAUTIONS IN PLACE. PT HAS ON MITT RESTRAINTS ON LEFT AND RIGHT HAND TO PREVENT PT FROM PULLING OUT GT. PT FLACC-O WITH NO S/S OF PAIN OR DISTRESS NOTED, CAP REFILL LESS THAN 3 SECONDS SKIN INTACT WARM AND DRY.
[2018-10-13 20:00] VITALS: BP 131/55
[2018-10-13] MEDS ORDERED: DEXTROSE 10% 1,000 ML IV SCH (20:00)
--- NOTE | 2018-10-13 20:04 | NUR ---
RESPIRATORY AT BEDSIDE PT ON 2LITERS VIA N/C. PT V/S FOLLOWS T 98.3 P 85 R 18 B/P 131/55 02 93% ON R/A.PT GIVEN DUE MEDS OF 2.5MG VALUIM, NO IV ACCESS TO GIVE IV PROTONIX ORDER.
--- NOTE | 2018-10-13 20:45 | NUR ---
REPORT GIVEN TO CATHIE MANAGER BUSINESS INFORMATIONSUPPOSITORY MOLDING MACHINE OPERATOR NURSE DUE TO CHANGE OF ASSIGNMENT FOR CONTINUITY OF CARE, PT INSTABLE CONDITION.
--- NOTE | 2018-10-13 21:25 | NUR ---
SUCTIONED PATIENT AND ORAL CARE DONE. CLEANED AND CHANGED PATIENT BED. ELEVATE HOB. SOFT RESTRAINT ON BOTH HANDS IN PLACE. NO S/S OF DISTRESS NOTED AT THIS TIME. WILL CONTINUE TO MONITOR.
--- NOTE | 2018-10-13 21:30 | NUR ---
DR. MAGAÑA NOTIFIED ABOUT PATIENT VOMITING COFFEE GROUND EMESIS. PATIENT CONNECTED TO LOW INTERMITTENT SUCTION AND ZOFRAN GIVEN. HOB ELEVATED.
[2018-10-13] MEDS: ONDANSETRON 4 MG/2 ML VIAL IM/IVP PRN ×2 (21:38→21:43)
--- NOTE | 2018-10-13 23:55 | NUR ---
CALLED DR. MAGAÑA THAT UNABLE TO ACCESS IV, PATIENT HARD STICK. HE SAID HE WILL F/U IN AM FOR PICC LINE PLACEMENT. V/S TAKEN AND RECORDED. NO S/S OF DISTRESS NOTED. HOB ELEVATED. PATIENT CONNECTED TO LOW INTERMITTENT SUCTION PER DR. MAGAÑA.
[2018-10-14] VITALS: BP 124/62
--- NOTE | 2018-10-14 | NUR ---
V/S TAKEN AND RECORDED WNL. MEDICATION NOT GIVEN NO IV ACCESS, DR MAGAÑA AWARE. NO VOMITING NOTED AT THIS TIME. PATIENT ON LOW INTERMITTENT SUCTION, [address] TURNED AND REPOSITIONED. HOB ELEVATED. NO S/S OF DISTRESS NOTED. CALL LIGHT WITHIN REACH. WILL CONTINUE TO MONITOR.
--- NOTE | 2018-10-14 02:00 | NUR ---
PATIENT RESTING ON BED. HOB ELEVATED. CONNECTED TO LOW INTERMITTENT SUCTION. NO S/S OF DISTRESS NOTED. TURNED AND REPOSITIONED. CALL LIGHT WITHIN REACH. WILL CONTINUE TO MONITOR.
[2018-10-14 04:00] VITALS: BP 112/61
[2018-10-14] MEDS: DEXT 5% / NACL 0.45% 1,000 ML IV SCH ×2 (04:05→14:05)
--- NOTE | 2018-10-14 04:30 | NUR ---
AM CARED ONE. V/S TAKEN AND RECORDED. NO S/S OF DISTRESS NOTED. ALL NEEDS ATTENDED. FALL PRECAUTION APPLIED. NO VOMITING NOTED AT THIS TIME. CONNECTED TO LOW INTERMITTENT SUCTION PER DR. MAGAÑA. WILL CONTINUE TO MONITOR.
[2018-10-14] MEDS: PIPER/TAZO 3.375GM/D5W PREMIX 50 ML IV SCH ×4 (06:00→18:11)
--- NOTE | 2018-10-14 07:20 | NUR ---
GAVE REPORT TO AM SHIFT RN AT BEDSIDE. CALL LIGHT WITHIN REACH. PATIENT IN STABLE CONDITION.
--- NOTE | 2018-10-14 07:25 | NUR ---
RECEIVED REPORT FROM NIGHT RN. PT RESTING IN BED. AAOX1. NO S/S OF ACUTE DISTRESS. APHASIC. FLACC-0. NO IV ACCESS MD AWARE. NGTUBE TO RIGHT NARE DRAINING COFFEE GROUND DRAINAGE. BASILIO DRAIN PATENT. ABDOMINAL DRESSING DRY AND INTACT. OSTOMY NOTED. CALL LIGHT WITHIN REACH. SAFETY MEASURES ENSURED. WILL CONTINUE TO MONITOR.
[2018-10-14 07:26] LABS: BASOPHILS # (AUTO) 0.1 K/uL (0.00-0.22); BASOPHILS % (AUTO) 0.6 % (0.0-2.0); EOSINOPHILS # (AUTO) 0.7 K/uL (0-0.4); EOSINOPHILS % (AUTO) 8.6 % (0.0-4.0); HEMATOCRIT 30.9 % (36-52); HEMOGLOBIN 10.5 g/dL (12.0-18.0); LYMPHOCYTES # (AUTO) 1.6 K/uL (2.0-11.5); LYMPHOCYTES % (AUTO) 19.7 % (20.5-51.1); MEAN CORPUSCULAR HEMOGLOBIN 31 pg (27-31); MEAN CORPUSCULAR HGB CONC 34 g/dL (33-37); MEAN CORPUSCULAR VOLUME 92.5 fL (80-94); MONOCYTES % (AUTO) 11.7 % (1.7-9.3); NEUTROPHILS # (AUTO) 4.9 K/uL (1.8-7.7); NEUTROPHILS % (AUTO) 59.4 % (42.2-75.2); PLATELET COUNT (AUTO) 228 K/uL (140-450); RED BLOOD CELL COUNT(AUTO) 3.34 MIL/uL (4.20-6.10); RED CELL DISTRIBUTION WIDTH 13.2 % (11.6-13.7); WHITE BLOOD COUNT (AUTO) 8.2 K/uL (4.8-10.8)
[2018-10-14 08:00] VITALS: BP 114/63
[2018-10-14 08:07] LABS: ANION GAP 9.6 (8-16); CARBON DIOXIDE 31.8 mmol/L (21-32); CREATININE 0.7 mg/dL (0.7-1.3); POTASSIUM 3.4 mmol/L (3.5-5.1)
[2018-10-14 08:10] LABS: PHOSPHORUS 2.8 mg/dL (2.5-4.9)
[2018-10-14] MEDS: PANTOPRAZOLE 40 MG INJ VIAL IVP SCH ×3 (09:00→21:02)
[2018-10-14] MEDS: DOCUSATE 100 MG/10 ML UDC PO SCH ×3 (09:00→17:00)
[2018-10-14] MEDS: DIAZEPAM 5 MG TAB PO SCH ×2 (09:00→21:57)
[2018-10-14] MEDS ORDERED: POTASSIUM CHLORIDE 10 MEQ TABER PO SCH (09:00)
[2018-10-14] MEDS: TAMSULOSIN 0.4 MG CAP PO SCH (09:00)
[2018-10-14] MEDS: SIMETHICONE 40 MG/0.6 ML PO SCH ×3 (09:00→18:02)
[2018-10-14] MEDS: POLYETHYLENE GLYCOL 17 GM/PKT PO SCH (09:00)
[2018-10-14] MEDS: LORATADINE 10 MG TAB PO SCH (09:00)
[2018-10-14] MEDS ORDERED: POTASSIUM CHLORIDE 20% 40 MEQ/15 ML UDC NG SCH (09:30)
--- NOTE | 2018-10-14 10:39 | NUR ---
PATIENT RESTING IN BED. AAOX1. NO S/S OF ACUTE DISTRESS. FLACC-0. WILL CONTINUE TO MONITOR.
[2018-10-14] MEDS ORDERED: HYDROmorphone 1 MG/ML AMP IVP SCH (11:57)
[2018-10-14] MEDS ORDERED: LORazepam 2 MG/ML VIAL IM/IVP SCH (11:58)
[2018-10-14 12:00] VITALS: BP 119/62
[2018-10-14] MEDS ORDERED: LIDOCAINE 1% 500 MG/50 ML VIAL INJ SCH (12:25)
[2018-10-14] MEDS ORDERED: KETOROLAC 30 MG/ML VIAL IM PRN (12:25)
[2018-10-14] MEDS ORDERED: HYDROmorphone 1 MG/ML AMP IM SCH (12:58)
--- NOTE | 2018-10-14 13:32 | NUR ---
LIDOCAINE NOT NEEDED FOR PROCEDURE.
[2018-10-14] MEDS: GAUZE TP SCH (13:40)
[2018-10-14 14:30] VITALS: BP 110/75
--- NOTE | 2018-10-14 15:55 | NUR ---
CALLED PICC LINE NURSE AND REQUESTED PICC LINE WILL BE INSERTED
--- NOTE | 2018-10-14 17:49 | NUR ---
PT TRANSPORTED TO CT. NO S/S OF ACUTE DISTRESS. FLACC-0.
[2018-10-14] MEDS: BLOOD GLUCOSE MONITORING 1 DEV DEV MC SCH (18:00)
--- NOTE | 2018-10-14 19:30 | NUR ---
RECEIVED BEDSIDE REPORT FROM DAY SHIFT NURSE PAVAN RN, PT STABLE, NO DISTRESS NOTED, PICC LINE JUST INSERTED TO R UA DOUBLE LUMEN, PATENT INTACT IN PLACE, STATED OK TO USE. PT HAS IV TO L WRIST 24G, PATENT INTACT, PT ON 3LPM O2 VIA NC AT THIS MOMENT, NO SOB NOTED, PT SLEEPING, FLACC-0, COLOSTOMY BAG IN PLACE DRAINING BROWN LIQUID, DRESSING TO THE ABD INTACT WITH A BASILIO DRAIN DRAINING SMALL AMOUNT OF SANGUINOUS FLUID. INITIAL ASSESSMENT DONE, ALL SAFETY PRECAUTION MET, CALL LIGHT WITHIN REACH, WILL CONTINUE TO MONITOR.
[2018-10-14 20:00] VITALS: BP_SYST 112; BP_SYST 116; BP_DIAS 47; BP_DIAS 71
[2018-10-14] MEDS: DEXTROSE IV SCH ×4 (21:02)
[2018-10-14] MEDS: [UNRECOGNIZED DRUG - OTHER] IV SCH ×4 (21:02)
[2018-10-14] MEDS: AMINO ACIDS 8.5% IV SCH ×4 (21:02)
[2018-10-14] MEDS: MULTIVITAMIN IV SCH ×4 (21:02)
--- NOTE | 2018-10-14 21:02 | NUR ---
DUE MEDICATION ADMINISTERED, TPN STARTED AT 50ML/HR, PT TOLERATED WELL, NO DISTRESS NOTED, WILL CONTINUE TO MONITOR.
--- NOTE | 2018-10-14 21:57 | NUR ---
DUE MEDICATION ADMINISTERED, PT TOLERATED WELL, NO DISTRESS NOTED, CALL LIGHT WITHIN REACH, WILL CONTINUE TO MONITOR.
[2018-10-15] VITALS: BP 97/54
--- NOTE | 2018-10-15 00:10 | NUR ---
CHECKED ON PT, PT SLEEPING, V/S TAKEN, WNL, CALL LIGHT WITHIN REACH, WILL CONTINUE TO MONITOR.
[2018-10-15] MEDS: PIPER/TAZO 3.375GM/D5W PREMIX 50 ML IV SCH ×4 (00:14→17:11)
[2018-10-15] MEDS: BLOOD GLUCOSE MONITORING 1 DEV DEV MC SCH ×4 (00:17→17:10)
[2018-10-15] MEDS: INSULIN LISPRO SLIDING SCALE 100 UNITS/ML VIAL SUBQ PRN (00:18)
--- NOTE | 2018-10-15 02:11 | NUR ---
PT SLEEPING, CALL LIGHT WITHIN REACH, WILL CONTINUE TO MONITOR.
[2018-10-15 04:00] VITALS: BP 135/66
--- NOTE | 2018-10-15 04:13 | NUR ---
CHECKED ON PT, PT SLEEPING, V/S TAKEN, WNL, CALL LIGHT WITHIN REACH, WILL CONTINUE TO MONITOR.
--- NOTE | 2018-10-15 05:34 | NUR ---
DUE MEDICATION ADMINISTERED, PT TOLERATED WELL, NO DISTRESS NOTED, CALL LIGHT WITHIN REACH, WILL CONTINUE TO MONITOR.
[2018-10-15 06:59] LABS: ANION GAP 9.3 (8-16); CARBON DIOXIDE 32.4 mmol/L (21-32); MAGNESIUM 2.1 mg/dL (1.8-2.4); PHOSPHORUS 2.8 mg/dL (2.5-4.9); POTASSIUM 3.7 mmol/L (3.5-5.1)
[2018-10-15 07:00] LABS: BASOPHILS % (AUTO) 0.5 % (0.0-2.0); CREATININE 0.7 mg/dL (0.7-1.3); EOSINOPHILS # (AUTO) 0.8 K/uL (0-0.4); EOSINOPHILS % (AUTO) 10.1 % (0.0-4.0); HEMATOCRIT 25.9 % (36-52); HEMOGLOBIN 8.8 g/dL (12.0-18.0); LYMPHOCYTES # (AUTO) 1.4 K/uL (2.0-11.5); LYMPHOCYTES % (AUTO) 17.7 % (20.5-51.1); MEAN CORPUSCULAR HEMOGLOBIN 32 pg (27-31); MEAN CORPUSCULAR HGB CONC 34 g/dL (33-37); MONOCYTES # (AUTO) 0.9 K/uL (0.8-1.0); MONOCYTES % (AUTO) 11.3 % (1.7-9.3); NEUTROPHILS # (AUTO) 4.7 K/uL (1.8-7.7); NEUTROPHILS % (AUTO) 60.4 % (42.2-75.2); PLATELET COUNT (AUTO) 197 K/uL (140-450); RED BLOOD CELL COUNT(AUTO) 2.75 MIL/uL (4.20-6.10); RED CELL DISTRIBUTION WIDTH 13.4 % (11.6-13.7); WHITE BLOOD COUNT (AUTO) 7.8 K/uL (4.8-10.8)
--- NOTE | 2018-10-15 07:24 | NUR ---
ENDORSED PT TO DAY SHIFT NURSE IVÁN RN, PT STABLE, NO DISTRESS NOTED, CALL LIGHT WITHIN REACH.
--- NOTE | 2018-10-15 07:25 | NUR ---
RECEIVED BEDSIDE REPORT FROM LAY OUT MACHINE OPERATOR RN FOR CONTINUITY OF CARE. PT IS APHASIC. IN STABLE CONDITION, NO DISTRESS NOTED. FLACC 0. RESPIRATIONS EVEN AND UNLABORED. PICC LINE R UA DOUBLE LUMEN, PATENT INTACT IN PLACE, INFUSING TPN. IV TO L WRIST 24G, PATENT INTACT ON SL. SATURATING 95% ON 2L NC. COLOSTOMY BAG IN PLACE. DRESSING TO THE ABD INTACT WITH A BASILIO DRAIN DRAINING SMALL AMOUNT OF SANGUINOUS FLUID. SOFT WRIST RESTRAINTS IN PLACE. NGT TO INTERMITTENT SUCTION. ALL SAFETY PRECAUTION IN PLACE, CALL LIGHT WITHIN REACH, WILL CONTINUE TO MONITOR.
[2018-10-15 08:00] VITALS: BP 113/62
[2018-10-15] MEDS: PANTOPRAZOLE 40 MG INJ VIAL IVP SCH ×2 (09:13→20:18)
[2018-10-15] MEDS: POLYETHYLENE GLYCOL 17 GM/PKT PO SCH (09:13)
[2018-10-15] MEDS: TAMSULOSIN 0.4 MG CAP PO SCH (09:14)
[2018-10-15] MEDS: DIAZEPAM 5 MG TAB PO SCH ×2 (09:14→20:19)
[2018-10-15] MEDS: LORATADINE 10 MG TAB PO SCH (09:15)
[2018-10-15] MEDS: DOCUSATE 100 MG/10 ML UDC PO SCH ×3 (09:15→17:11)
[2018-10-15] MEDS: SIMETHICONE 40 MG/0.6 ML PO SCH ×3 (09:22→17:10)
[2018-10-15] MEDS ORDERED: MULTIVITAMIN IV SCH ×8 (09:59→20:00)
[2018-10-15] MEDS ORDERED: AMINO ACIDS 8.5% IV SCH ×8 (09:59→20:00)
[2018-10-15] MEDS ORDERED: DEXTROSE IV SCH ×8 (09:59→20:00)
[2018-10-15] MEDS ORDERED: [UNRECOGNIZED DRUG - OTHER] IV SCH ×8 (09:59→20:00)
[2018-10-15 12:00] VITALS: BP 110/56
[2018-10-15] MEDS: GAUZE TP SCH (12:02)
--- NOTE | 2018-10-15 12:44 | NUR ---
PT RESTING IN BED, AWAKE AND ALERT. ALL SAFETY PRECAUTIONS IN PLACE, WILL CONTINUE TO MONITOR.
--- NOTE | 2018-10-15 13:48 | NUR ---
10/15/18 RD FOLLOW UP COMPLETED PLEASE REFER TO NUTRITION ASSESSMENT UNDER CARE ACTIVITY FOR ESTIMATED NUTRITIONAL NEEDS. 1. RECOMMEND INCREASE ENERGY INFUSION FOR TPN PPN D 8%, AA 4.25% AT 100 ML/HR WITH 10% FAT AT 180 ML VIA PERIPHERAL LINE --CURRENT TPN REGIMENT PROVIDES: 1240.8 KCAL, 102 GM PROTEIN. TOTAL VOLUME OF 2400. GIR 1.43 MG CHO/KG/HR. IT MEETS 65% OF PT�S ESTIMATED ENERGY NEEDS AND 100% PROTEIN NEEDS. 2. WHEN PT IS MEDICALLY STABLE, CONSIDER ADVANCING DIET AFTER SWALLOW EVALUATION 3. RD TO FOLLOW-UP 2-3 DAYS, HIGH RISK JANIS DAMON, DIETER
--- NOTE | 2018-10-15 13:51 | NUR ---
PT AWAKE IN BED, EYES OPEN SPONTANEOUSLY. ALL SAFETY PRECAUTIONS IN PLACE, WILL CONTINUE TO MONITOR.
[2018-10-15] MEDS ORDERED: LORazepam 2 MG/ML VIAL IM/IVP PRN (15:15)
[2018-10-15] MEDS: DEXT 5% / NACL 0.45% 1,000 ML IV SCH ×2 (15:15→15:40)
--- NOTE | 2018-10-15 15:42 | NUR ---
PER MARBLE WORKER, OKAY TO ADMINISTERED IVF WHILE TPN ALSO RUNNING. WILL ADMIN IVF IN LEFT WRIST IV SITE. TPN RUNNING THROUGH RT UA PICC. Addendum: 10/15/18 at 1747 by Meka Denis Meng, RN CHANGED IVF TO INFUSING THROUGH OTHER LUMEN OF PICC LINE.
[2018-10-15 16:00] VITALS: BP 110/67
--- NOTE | 2018-10-15 19:26 | NUR ---
ENDORSED POC TO FOLDER INSPECTOR RN. PT IN STABLE CONDITION.
--- NOTE | 2018-10-15 19:27 | NUR ---
RECEIVED BEDSIDE REPORT FROM DAY SHIFT NURSE IVÁN RN, PT STABLE, NO DISTRESS NOTED, PICC LINE TO R UA DOUBLE LUMEN, PATENT, INTACT, INFUSING TPN @ 100ML/HR, AND D5 1/2NS @ 100ML/HR, INFUSING WELL, PT ON 2LPM O2 VIA NC, NO SOB NOTED, NG TUBE IN PLACE, ON INTERMITTENT SUCTION, DRAINING COFFEE GROUND LIQUID, INITIAL ASSESSMENT DONE, ALL SAFETY PRECAUTION MET, CALL LIGHT WITHIN REACH, WILL CONTINUE TO MONITOR.
[2018-10-15 20:00] VITALS: BP 123/78
[2018-10-15] MEDS: [UNRECOGNIZED DRUG - OTHER] IV SCH ×4 (20:00)
[2018-10-15] MEDS: MULTIVITAMIN IV SCH ×4 (20:00)
[2018-10-15] MEDS: AMINO ACIDS 8.5% IV SCH ×4 (20:00)
[2018-10-15] MEDS: DEXTROSE IV SCH ×4 (20:00)
--- NOTE | 2018-10-15 20:00 | NUR ---
NOTIFIED DR. KAUFFMAN REGARDING TPN ORDERS, THERE ARE 2 NEW ORDERS, AND THE TPN THAT IS AVAILABLE AT UNIT IS THE OLD ORDER THAT HAS BEEN D/C, STATED OK TO GIVE PT THE TPN THAT IS AVAILABLE.
[2018-10-16] VITALS: BP 112/63
--- NOTE | 2018-10-16 | NUR ---
PT SLEEPING IN BED, VITALS SIGNS STABLE, NO SIGNS OF DISTRESS, BLOOD GLUCOSE DOES NOT REQUIRE COVERAGE. WILL CONTINUE TO MONITOR.
[2018-10-16] MEDS: PIPER/TAZO 3.375GM/D5W PREMIX 50 ML IV SCH ×4 (00:05→20:55)
[2018-10-16] MEDS: BLOOD GLUCOSE MONITORING 1 DEV DEV MC SCH ×5 (00:06→23:31)
--- NOTE | 2018-10-16 01:38 | NUR ---
PATIENT SLEEPING IN BED, NO SIGNS OF DISTRESS, WILL CONTINUE TO MONITOR.
[2018-10-16 04:00] VITALS: BP 117/68
[2018-10-16] MEDS: DEXT 5% / NACL 0.45% 1,000 ML IV SCH (04:03)
--- NOTE | 2018-10-16 04:25 | NUR ---
PATIENT SLEEPING IN BED, VITALS SIGNS STABLE, NO SIGN OF DISTRESS ON 2L NC, WILL CONTINUE TO MONITOR
--- NOTE | 2018-10-16 05:45 | NUR ---
NOTIFIED DR. KAUFFMAN PT HAS NG TUBE OUTPUT 400ML, STATED UNDERSTANDING, NO CHANGE IN ORDERS.
[2018-10-16] MEDS: INSULIN LISPRO SLIDING SCALE 100 UNITS/ML VIAL SUBQ PRN (05:49)
[2018-10-16 06:44] LABS: ANION GAP 10.6 (8-16); CREATININE 0.6 mg/dL (0.7-1.3); POTASSIUM 3.6 mmol/L (3.5-5.1)
[2018-10-16 06:48] LABS: MAGNESIUM 2.2 mg/dL (1.8-2.4); PHOSPHORUS 2.8 mg/dL (2.5-4.9)
--- NOTE | 2018-10-16 07:20 | NUR ---
RECEIVED PT REPORT AT BEDSIDE FROM DIRECTOR OF RESEARCH AND DEVELOPMENT NURSE. PT IS AWAKE, BUT CONFUSED AND NONVERBAL. NO S/S OF ANY ACUTE DISTRESS OR SOB NOTED. NG TUBE IN PLACE, ON INTERMITTENT SUCTION. PT IN ROOM AIR, SURGICAL INCISION PRESENT S/P VENTRAL HERNIA REPAIR, OTHERWISE SKIN IS INTACT. DOUBLE LUMEN PICC LINE NOTED ON THE RUE INFUSING D5 1/2 NS 100 ML/HR, AND TPN 100 ML/HR. SOFT RESTRAINTS NOTED ON BILATERAL WRISTS (EXPIRES AT 10:03 AM), WILL NOTIFY MD TO RENEW RESTRAINT. FALL PRECAUTIONS ARE IN PLACE, CALL LIGHT WITHIN REACH. WILL CONTINUE TO MONITOR.
--- NOTE | 2018-10-16 07:27 | NUR ---
GAVE BEDSIDE REPORT TO DAY SHIFT NURSE, PATIENT SLEEPING IN BED, NO SIGNS OF DISTRESS
[2018-10-16 07:55] VITALS: BP 113/60
[2018-10-16] MEDS: SIMETHICONE 40 MG/0.6 ML PO SCH ×3 (08:15→17:46)
[2018-10-16] MEDS: DOCUSATE 100 MG/10 ML UDC PO SCH ×2 (08:15→12:14)
[2018-10-16] MEDS: TAMSULOSIN 0.4 MG CAP PO SCH (08:16)
[2018-10-16] MEDS: LORATADINE 10 MG TAB PO SCH (08:16)
[2018-10-16] MEDS: POLYETHYLENE GLYCOL 17 GM/PKT PO SCH (08:16)
[2018-10-16] MEDS: DIAZEPAM 5 MG TAB PO SCH ×2 (08:17→20:55)
[2018-10-16] MEDS: PANTOPRAZOLE 40 MG INJ VIAL IVP SCH ×2 (08:17→20:56)
--- NOTE | 2018-10-16 08:38 | NUR ---
AM MEDS ADMINISTERED, NG TUBE IS INTACT AND PATENT. PT TOLERATED WELL.
--- NOTE | 2018-10-16 08:59 | NUR ---
DR PEREZ AWARE OF PT'S WRIST RESTRAINTS EXPIRING THIS AM, SHE WILL RENEW THE RESTRAINT ORDER, PT IS STILL TRYING TO PULL AT HIS NG TUBE.
--- NOTE | 2018-10-16 11:10 | NUR ---
PT CLEANED, CHANGED, AND REPOSITIONED. COLOSTOMY BAG EMPTIED. SURGICAL INCISION CLEANED AND COVERED WITH NEW CLEAN DRY ABD DRESSING.
[2018-10-16] MEDS: GAUZE TP SCH (11:59)
[2018-10-16 12:00] VITALS: BP 99/60
--- NOTE | 2018-10-16 13:04 | NUR ---
NG TUBE REMOVED PER MD ORDER.
--- NOTE | 2018-10-16 14:35 | NUR ---
BEDSIDE SWALLOW EVAL DONE. PT WAS ABLE TO SWALLOW SPOONFULS OF WATER AND JELLO WITHOUT ISSUES. NO VOMITING NOTED AFTER THE SWALLOW EVAL.
--- NOTE | 2018-10-16 14:35 | NUR ---
PT SEEN BY DR VALVERDE
[2018-10-16] MEDS ORDERED: MAGNESIUM HYDROXIDE 2400 MG/30 ML UDC PO SCH (15:00)
[2018-10-16 16:00] VITALS: BP 121/69
[2018-10-16] MEDS ORDERED: KCL 20 MEQ/WATER INJ PREMIX 100 ML IV SCH (16:00)
[2018-10-16 16:26] LABS: BASOPHILS # (AUTO) 0.1 K/uL (0.00-0.22); BASOPHILS % (AUTO) 1.1 % (0.0-2.0); EOSINOPHILS # (AUTO) 0.9 K/uL (0-0.4); EOSINOPHILS % (AUTO) 10.9 % (0.0-4.0); HEMATOCRIT 29.5 % (36-52); HEMOGLOBIN 9.9 g/dL (12.0-18.0); LYMPHOCYTES # (AUTO) 1.7 K/uL (2.0-11.5); LYMPHOCYTES % (AUTO) 21.1 % (20.5-51.1); MEAN CORPUSCULAR HEMOGLOBIN 32 pg (27-31); MEAN CORPUSCULAR HGB CONC 34 g/dL (33-37); MEAN CORPUSCULAR VOLUME 93.9 fL (80-94); MONOCYTES # (AUTO) 0.9 K/uL (0.8-1.0); MONOCYTES % (AUTO) 10.9 % (1.7-9.3); NEUTROPHILS # (AUTO) 4.4 K/uL (1.8-7.7); PLATELET COUNT (AUTO) 208 K/uL (140-450); RED BLOOD CELL COUNT(AUTO) 3.14 MIL/uL (4.20-6.10); RED CELL DISTRIBUTION WIDTH 13.3 % (11.6-13.7); WHITE BLOOD COUNT (AUTO) 7.9 K/uL (4.8-10.8)
[2018-10-16] MEDS: SENNA 8.6 MG TAB PO SCH (17:46)
--- NOTE | 2018-10-16 17:58 | NUR ---
PT'S SWALLOWING EVALUATED BY ST NURSE. SHE RECOMMENDS A PUREED DIET WITH NECTAR THICK LIQUIDS.
--- NOTE | 2018-10-16 18:40 | NUR ---
* ST NOTE * Pt seen at bedside w/nsg Bibi present. Pt alert and cooperative, appearing to not be in pain at this time d/t lack of groaning, facial grimacing, etc. Bedside dysphagia and oral mechanism exams completed. See evaluation report for further details. Pt tolerating 1/1 PO trial of regular solid crackers as well as 3/4 alternating PO trials of thin liquid apple juice via a spoon, all w/o s/s of aspiration. Pt presenting with tongue thrust and thus thrusting 1 bolus of thin liquids out of oral cavity, causing oral labial spillage. Pt then tolerating 4/4 alternating PO trials of puree apple sauce as well as 4/4 alternating PO trials of nectar-thickened apple juice, all 3-5 CCs at a time via a spoon w/o s/s of aspiration. Pt and nsg education completed re: aspiration precautions and safe swallow compensatory strategies pt and caregivers could utilize to aid pt w/swallow function, w/pt indifferent but caregiver/Nsg Bibi verbalizing understanding and agreement w/clinician's recommendations. It is thus recommended pt's PO diet consistency be modified to puree textures w/nectar-thickened liquids for all meals, w/pt indifferent but caregiver/Nsg Bibi agreeable. No further ST follow up recommended at this time. Pt and caregiver/Nsg Bibi education completed re: results of evaluation; benefits of abiding by recommended PO diet consistency; and prognosis for improvement; with pt indifferent but caregiver/Nsg Bibi verbalizing understanding and agreement w/clinician's recommendations. Recommend: - PO DIET CONSISTENCY OF PUREE TEXTURES W/NECTAR-THICKENED LIQUIDS for all meals - PO MEDICATION ADMINISTRATION CRUSHED IN PUREE OR NECTAR-THICK TEXTURES - Pt requires total assistance w/feeding - Maintain STRICT ASPIRATION PRECAUTIONS DURING PT'S PO INTAKE - Pt to DRINK NECTAR-THICKENED LIQUID WITH A SPOON ONLY - NO CUP OR STRAW - Feeder to SIT PT UP AT 80-90 DEGREE ANGLE DURING PO INTAKE; FEED PT SLOWLY; ALTERNATE BTWN SOLIDS & LIQUIDS; AND UTILIZE SMALL BITES/SIPS - Pt's PO diet consistency may be upgraded at a later time as tolerated. No further ST ff recommended at this time. NOMS Level 3
--- NOTE | 2018-10-16 19:24 | NUR ---
PT ENDORSED TO CHARTING CLERK NURSE IN STABLE CONDITION
--- NOTE | 2018-10-16 19:25 | NUR ---
RECEIVED REPORT FROM DAY SHIFT NURSE CARL-RN AT BEDSIDE. PT RESTING IN BED, APHASIC, WITH 2L/NC AND RIGHT UPPER ARM PICC LINE DOUBLE LUMEN RUNNING TPN @70ML/HR AND TKO. ABD INCISION WITH DAPHNEY S/P VENTRAL HERNIA REPAIR WITH BASILIO DRAIN ON RIGHT SIDE AND COLOSTOMY BAG IN PLACE. SOFT WRIST RESTRAINS IN PLACE DUE TO 10/17/2018 @ 1002. CLEAR LIQUID DIET (SPOON FEED TOLERATED BEST) WITH NECTAR THICK LIQUIDS. DISCUSSED PLAN OF CARE HOWEVER PT UNABLE TO VERBALIZED UNDERSTANDING. NO S/S OF RESPIRATORY DISTRESS OR DISCOMFORT NOTED AT THIS TIME. BED IN LOWEST POSITION, BED BREAKS ON BOTH SIDE RAILS UP AND FALL PRECAUTIONS IN PLACE. BEDSIDE TABLE AND CALL LIGHT ARE WITHIN REACH. WILL CONTINUE TO MONITOR.
[2018-10-16 20:00] VITALS: BP 133/78
[2018-10-16] MEDS ORDERED: AMINO ACIDS 8.5% IV SCH ×4 (20:00)
[2018-10-16] MEDS ORDERED: DEXTROSE IV SCH ×4 (20:00)
[2018-10-16] MEDS ORDERED: [UNRECOGNIZED DRUG - OTHER] IV SCH ×4 (20:00)
[2018-10-16] MEDS ORDERED: MULTIVITAMIN IV SCH ×4 (20:00)
--- NOTE | 2018-10-16 20:00 | NUR ---
VITAL SIGNS TAKEN AND TOLERATED WELL. SPOKE WITH DR. RYANN MAGAÑA REGARDING TPN WHILE ON CLEAR LIQUID DIET TOLERATING WELL WITH NECTAR THICK LIQUIDS. ORDERED TO COMPLETE CURRENT TPN AND DC FOR PARAMETERS SCHEDULED TPN. NO S/S OF RESPIRATORY DISTRESS OR DISCOMFORT NOTED AT THIS TIME. WILL CONTINUE TO MONITOR.
[2018-10-16] MEDS: METOCLOPRAMIDE 10 MG/2 ML INJ VIAL IVP SCH (20:55)
--- NOTE | 2018-10-16 20:56 | NUR ---
SCHEDULED MEDICATION GIVEN. IV MEDICATION TOLERATED WELL HOWEVER LIQUID MEDICATION CAUSED PT TO COUGH AND SPIT UP. SUCTIONED MOUTH TO ASSIST PT WITH SPIT UP- BROWN IN COLOR, THICK MUCUS. HEAD OF BED ELEVATED. WILL CONTINUE TO MONITOR.
[2018-10-16] MEDS ORDERED: POTASSIUM CHLORIDE 20% 40 MEQ/15 ML UDC PO SCH (21:00)
--- NOTE | 2018-10-16 22:00 | NUR ---
PT RESTING IN BED. NO S/S OF RESPIRATORY DISTRESS OR DISCOMFORT NOTED AT THIS TIME. WILL CONTINUE TO MONITOR.
[2018-10-17] VITALS: BP 94/70
--- NOTE | 2018-10-17 | NUR ---
VITAL SIGNS TAKEN AND TOLERATED WELL. BLOOD GLUCOSE 118- NO INSULIN COVERAGE NEEDED. NO S/S OF RESPIRATORY DISTRESS OR DISCOMFORT NOTED AT THIS TIME. WILL CONTINUE TO MONITOR.
--- NOTE | 2018-10-17 02:00 | NUR ---
PT SLEEPING IN BED. NO S/S OF RESPIRATORY DISTRESS OR DISCOMFORT NOTED AT THIS TIME. WILL CONTINUE TO MONITOR.
[2018-10-17 04:00] VITALS: BP 102/50
--- NOTE | 2018-10-17 04:00 | NUR ---
VITAL SIGNS TAKEN AND TOLERATED WELL. NO S/S OF RESPIRATORY DISTRESS OR DISCOMFORT NOTED AT THIS TIME. WILL CONTINUE TO MONITOR.
[2018-10-17] MEDS: METOCLOPRAMIDE 10 MG/2 ML INJ VIAL IVP SCH ×2 (04:33→12:45)
[2018-10-17] MEDS: PIPER/TAZO 3.375GM/D5W PREMIX 50 ML IV SCH ×3 (04:33→20:47)
--- NOTE | 2018-10-17 04:33 | NUR ---
SCHEDULED MEDICATION GIVEN AND TOLERATED WELL. NO S/S OF RESPIRATORY DISTRESS OR DISCOMFORT NOTED AT THIS TIME. WILL CONTINUE TO MONITOR.
[2018-10-17] MEDS: BLOOD GLUCOSE MONITORING 1 DEV DEV MC SCH (05:36)
--- NOTE | 2018-10-17 06:00 | NUR ---
BLOOD GLUCOSE 94- NO INSULIN COVERAGE GIVEN. PT TOLERATED WELL. NO S/S OF RESPIRATORY DISTRESS OR DISCOMFORT NOTED AT THIS TIME. WILL CONTINUE TO MONITOR.
[2018-10-17 07:12] LABS: ANION GAP 8.6 (8-16); CARBON DIOXIDE 32.3 mmol/L (21-32); CREATININE 0.7 mg/dL (0.7-1.3); POTASSIUM 4.9 mmol/L (3.5-5.1)
--- NOTE | 2018-10-17 07:24 | NUR ---
ENDORSED PT CARE TO DAY SHIFT NURSE GIOVANNI FOR CONTINUITY OF CARE.
--- NOTE | 2018-10-17 07:25 | NUR ---
RECEIVED REPORT FROM METAL DOOR ASSEMBLER NURSE. PATIENT SITTING IN BED COMFORTABLY. NO DISTRESS NOTED. RESPIRATIONS EVEN, UNLABORED, ON O2 2L/MIN VIA NC. AAOX1, APHASIC, SKIN COLOR APPROPRIATE TO ETHNICITY, WARM TO TOUCH. HAS ABDOMINAL SURGICAL WOUND S/P OPEN VENTRAL HERNIA REPAIR WITH DAPHNEY. DRESSING IS DRY AND INTACT. HAS ILLEOSTOMY IN PLACE, INTACT, PATENT. REVIEWED PLAN OF CARE WITH PATIENT. UNABLE TO COMPREHEND. HAS RIGHT UPPER ARM DOUBLE LUMEN PICC IN PLACE, PATENT. SAFETY MEASURES IN PLACE, CALL LIGHT WITHIN REACH. WILL CONTINUE TO MONITOR.
[2018-10-17 07:40] LABS: BASOPHILS # (AUTO) 0.1 K/uL (0.00-0.22); BASOPHILS % (AUTO) 0.8 % (0.0-2.0); EOSINOPHILS # (AUTO) 0.8 K/uL (0-0.4); EOSINOPHILS % (AUTO) 10.1 % (0.0-4.0); HEMATOCRIT 27.1 % (36-52); LYMPHOCYTES # (AUTO) 2.1 K/uL (2.0-11.5); LYMPHOCYTES % (AUTO) 25.9 % (20.5-51.1); MEAN CORPUSCULAR HEMOGLOBIN 32 pg (27-31); MEAN CORPUSCULAR HGB CONC 33 g/dL (33-37); MEAN CORPUSCULAR VOLUME 94.6 fL (80-94); NEUTROPHILS # (AUTO) 4.2 K/uL (1.8-7.7); NEUTROPHILS % (AUTO) 51.2 % (42.2-75.2); PLATELET COUNT (AUTO) 225 K/uL (140-450); RED BLOOD CELL COUNT(AUTO) 2.86 MIL/uL (4.20-6.10); RED CELL DISTRIBUTION WIDTH 13.3 % (11.6-13.7); WHITE BLOOD COUNT (AUTO) 8.1 K/uL (4.8-10.8)
[2018-10-17 07:41] LABS: MAGNESIUM 2.5 mg/dL (1.8-2.4); PHOSPHORUS 3.6 mg/dL (2.5-4.9)
[2018-10-17 08:00] VITALS: BP 110/67
[2018-10-17] MEDS: POLYETHYLENE GLYCOL 17 GM/PKT PO SCH (09:33)
[2018-10-17] MEDS: DIAZEPAM 5 MG TAB PO SCH ×2 (09:33→20:47)
[2018-10-17] MEDS: SENNA 8.6 MG TAB PO SCH ×2 (09:33→12:45)
[2018-10-17] MEDS: TAMSULOSIN 0.4 MG CAP PO SCH (09:33)
[2018-10-17] MEDS: PANTOPRAZOLE 40 MG INJ VIAL IVP SCH (09:33)
[2018-10-17] MEDS: SIMETHICONE 40 MG/0.6 ML PO SCH ×3 (09:35→16:52)
--- NOTE | 2018-10-17 10:03 | NUR ---
PATIENT SITTING IN BED. NO DISTRESS NOTED. DENIES ANY PAIN. SCHEDULED MEDICATIONS DUE GIVEN. WILL CONTINUE TO MONITOR.
[2018-10-17 12:00] VITALS: BP 96/52
--- NOTE | 2018-10-17 12:55 | NUR ---
PATIENT SITTING IN BED COMFORTABLY. NO DISTRESS NOTED. NO VOMITING NOTED AFTER EATING PUREED DIET. SCHEDULED MEDICATIONS DUE GIVEN. WILL CONTINUE TO MONITOR.
[2018-10-17] MEDS: GAUZE TP SCH (12:57)
--- NOTE | 2018-10-17 14:33 | NUR ---
10/17/18 RD FOLLOW UP COMPLETED PLEASE REFER TO NUTRITION ASSESSMENT UNDER CARE ACTIVITY FOR ESTIMATED NUTRITIONAL NEEDS. 1. CONTINUE PUREE DIET AND NECTAR THICK LIQUID TOLERATED 2. RD TO FOLLOW-UP 3-5 DAYS, MODERATE RISK JANIS DAMON RD
--- NOTE | 2018-10-17 15:53 | NUR ---
CALLED ANGEL FROM [facility], [phone] AND INFORMED HER THAT THIS PATIENT MAY POSSIBLY BE GOING HOME TOMORROW.
[2018-10-17 16:00] VITALS: BP 109/55
[2018-10-17] MEDS ORDERED: SENN-167 PO (17:30)
[2018-10-17] MEDS ORDERED: LACT10SO1 PO (17:30)
[2018-10-17] MEDS ORDERED: POLY17PD46 PO (17:30)
[2018-10-17] MEDS ORDERED: MAGN1.7538 PO (17:30)
--- NOTE | 2018-10-17 18:30 | NUR ---
PICC LINE REMOVED PER DR. ANDERSON VERBAL ORDERS. WOUND DRESSING CHANGED AND PICTURES TAKEN. DISCHARGE INSTRUCTIONS PROVIDED TO PATIENT. UNABLE TO COMPREHEND. WILL PROVIDE CAREGIVERS DISCHARGE INSTRUCTIONS WHEN THE ARRIVE. SCHEDULED CHILLER TECHNICIAN TIME IS 1900. WILL CONTINUE TO MONITOR.
--- NOTE | 2018-10-17 19:30 | NUR ---
GAVE REPORT TO LEARNING STRATEGIST NURSE FOR CONTINUITY OF CARE. PATIENT IN STABLE CONDITION.
--- NOTE | 2018-10-17 19:31 | NUR ---
RECEIVED REPORT FROM DAY SHIFT NURSE KRISTINA-RN AT BEDSIDE. PT RESTING IN BED, APHASIC, ON ROOM AIR WITH NO IV SITE. ABD INCISION WITH DAPHNEY S/P VENTRAL HERNIA REPAIR OPEN TO AIR; BASILIO DRAINAGE SITE REMOVED WITH BANDAGE IN PLACE. COLOSTOMY BAG IN PLACE. PUREE DIET (SPOON FEED TOLERATED BEST) WITH NECTAR THICK LIQUIDS. DISCUSSED PLAN OF CARE HOWEVER PT UNABLE TO VERBALIZED UNDERSTANDING. NO S/S OF RESPIRATORY DISTRESS OR DISCOMFORT NOTED AT THIS TIME. BED IN LOWEST POSITION, BED BREAKS ON BOTH SIDE RAILS UP AND FALL PRECAUTIONS IN PLACE. BEDSIDE TABLE AND CALL LIGHT ARE WITHIN REACH. WILL CONTINUE TO MONITOR.
[2018-10-17 20:00] VITALS: BP 115/58
--- NOTE | 2018-10-17 20:00 | NUR ---
VITAL SIGNS TAKEN AND TOLERATED WELL. NO S/S OF RESPIRATORY DISTRESS OR DISCOMFORT NOTED AT THIS TIME. WILL CONTINUE TO MONITOR.
--- NOTE | 2018-10-17 20:47 | NUR ---
SCHEDULED MEDICATION VALIUM GIVEN AND TOLERATED WELL IN APPLE SAUCE. ZOSYN NOT GIVEN DUE TO NO IV SITE AVAILABLE. AWAITING TO BE PICKED UP TO GO BACK HOME TO [place] [facility]. NO S/S OF RESPIRATORY DISTRESS OR DISCOMFORT NOTED AT THIS TIME. WILL CONTINUE TO MONITOR.
--- NOTE | 2018-10-17 21:50 | NUR ---
PICKUP ARRIVED AND PT WAS PLACED IN HIS FACILITY WHEELCHAIR VIA SHANA LIFT BY MYSELF, KERI AND CANDACE. PT WAS PLACED IN ORANGE GOWN, DIAPER PROVIDED BY [employer] AND ID BANDS WERE REMOVED. PT IN STABLE CONDITION.
[2018-10-18] MEDS ORDERED: SENNA 8.6 MG TAB PO SCH (09:00)
== END 2018-10-17 21:50 | DRG 335 ==
LOC: MED 10:29 → MTU 15:30 → MIC 10-10 18:42 → MTU 10-11 23:35
PROVIDERS: ADMIT Family Medicine; ATTEND Family Medicine
PROC: 0DNU0ZZ Release Omentum, Open Approach (ICD-10-PCS; 2018-10-10)
PROC: 0WUF0JZ Supplement Abdominal Wall with Synthetic Substitute, Open Approach (ICD-10-PCS; principal; 2018-10-10 14:00)
PROC: 05H833Z Insertion of Infusion Device into Left Axillary Vein, Percutaneous Approach (ICD-10-PCS; 2018-10-14)
PROC: 05H833Z Insertion of Infusion Device into Left Axillary Vein, Percutaneous Approach (ICD-10-PCS; 2018-10-14)
PROC: B54NZZA Ultrasonography of Left Upper Extremity Veins, Guidance (ICD-10-PCS; 2018-10-14)
PROC: B54NZZA Ultrasonography of Left Upper Extremity Veins, Guidance (ICD-10-PCS; 2018-10-14)
PROC: 05JY3ZZ Inspection of Upper Vein, Percutaneous Approach (ICD-10-PCS; 2018-10-14)
PROC: 05JY3ZZ Inspection of Upper Vein, Percutaneous Approach (ICD-10-PCS; 2018-10-14)
DX: K43.6 Other and unspecified ventral hernia with obstruction, without gangrene (principal); E43 Unspecified severe protein-calorie malnutrition; E87.1 Hypo-osmolality and hyponatremia; K56.0 Paralytic ileus; I10 Essential (primary) hypertension; E83.41 Hypermagnesemia; K21.9 Gastro-esophageal reflux disease without esophagitis; E87.6 Hypokalemia; E87.8 Other disorders of electrolyte and fluid balance, not elsewhere classified; N40.0 Benign prostatic hyperplasia without lower urinary tract symptoms; K59.00 Constipation, unspecified; I73.9 Peripheral vascular disease, unspecified; K66.0 Peritoneal adhesions (postprocedural) (postinfection); E88.09 Other disorders of plasma-protein metabolism, not elsewhere classified; E83.51 Hypocalcemia; Z74.01 Bed confinement status; Z68.31 Body mass index [BMI] 31.0-31.9, adult; Z93.3 Colostomy status; Z88.6 Allergy status to analgesic agent; Z88.8 Allergy status to other drugs, medicaments and biological substances
CPT/HCPCS: 36415; 71045; 74018; 74250; 76604; 80048; 80053; 81003; 82009; 82040; 82140; 82150; 82272; 82550; 82553; 82948; 82977; 83036; 83605; 83690; 83735; 83874; 83880; 84100; 84443; 84484; 85025; 85610; 85730; 86886; 86900; 86901; 87040; 87081; 87086; 92610; 93005; 96361; 96372; 96374; 96375; 99285; A9153; C1751; C1758; C1781; C9113; J0330; J0690; J1100; J1170; J1200; J1630; J1642; J1815; J1885; J2001; J2060; J2250; J2405; J2543; J2704; J2710; J2765; J3010; J3480; J3490; J7030; J7060; Q0092

== ENCOUNTER 2018-10-18 11:22 | Emergency (ER) | payer OTHER, MEDICAID ==
[~2018-10-18] VITALS: Ht 167.6 cm; Wt 83.9 kg
[~2018-10-18 11:22] MED LIST changes: +LACT10SO1 PO; +LORA10TA19 PO; +MAGN1.7538 PO; +MULT15LI1 PO; +PANT40EC PO; +POLY17PD46 PO; +POTA20TE15 PO; +SENN-167 PO; +TAMS0.4C96 PO
--- NOTE | 2018-10-18 11:24 | NUR ---
PT BIBA ALS TO BED 9
[2018-10-18 11:35] VITALS: BP 92/61
--- NOTE | 2018-10-18 11:35 | NUR ---
PT BIB CAREGIVER, PT WAS D/C'D YESTERDAY FROM [facility] FOR HERNIA REPAIRE. PER QA ANALYST, PT HAD 6 EPISODES COFFEE GROUND EMESIS THIS AM. AWAKE, ALERT BUT UNABLE TO FOLLOW COMMANDS. ON O2 NC 2L/MIN. PT UNABLE TO AMBULATE. FLACC O. BEDSIDE MONITOR SHOWS SR. PATIENT POSITIONED FOR COMFORT; HOB ELEVATED; BEDRAILS UP X2; BED DOWN. ER MD MADE AWARE OF PT STATUS. QA ANALYST AT BEDSIDE.
[2018-10-18] MEDS ORDERED: NACL 0.9% 1,000 ML IV SCH (12:16)
[2018-10-18] MEDS ORDERED: ONDANSETRON 4 MG/2 ML VIAL IVP ONE (12:20)
[2018-10-18] MEDS ORDERED: FAMOTIDINE 20 MG/2 ML VIAL IVP ONE (12:20)
[2018-10-18] MEDS ORDERED: METOCLOPRAMIDE 10 MG/2 ML INJ VIAL IVP ONE (12:20)
[2018-10-18 12:58] LABS: BASOPHILS # (AUTO) 0.1 K/uL (0.00-0.22); BASOPHILS % (AUTO) 0.8 % (0.0-2.0); EOSINOPHILS # (AUTO) 0.7 K/uL (0-0.4); EOSINOPHILS % (AUTO) 7.6 % (0.0-4.0); HEMATOCRIT 27.5 % (36-52); HEMOGLOBIN 9.2 g/dL (12.0-18.0); LYMPHOCYTES # (AUTO) 1.5 K/uL (2.0-11.5); LYMPHOCYTES % (AUTO) 15.6 % (20.5-51.1); MEAN CORPUSCULAR HEMOGLOBIN 32 pg (27-31); MEAN CORPUSCULAR HGB CONC 34 g/dL (33-37); MEAN CORPUSCULAR VOLUME 95.1 fL (80-94); MONOCYTES # (AUTO) 0.9 K/uL (0.8-1.0); MONOCYTES % (AUTO) 9.7 % (1.7-9.3); NEUTROPHILS # (AUTO) 6.5 K/uL (1.8-7.7); NEUTROPHILS % (AUTO) 66.3 % (42.2-75.2); PLATELET COUNT (AUTO) 256 K/uL (140-450); RED BLOOD CELL COUNT(AUTO) 2.89 MIL/uL (4.20-6.10); RED CELL DISTRIBUTION WIDTH 13.7 % (11.6-13.7); WHITE BLOOD COUNT (AUTO) 9.8 K/uL (4.8-10.8)
[2018-10-18 13:15] LABS: PROTHROMBIN TIME 11.1 secs (10.8-13.4)
[2018-10-18 13:27] LABS: POTASSIUM 4.8 mmol/L (3.5-5.1)
[2018-10-18 13:28] LABS: CARBON DIOXIDE 29.8 mmol/L (21-32); CREATININE 0.7 mg/dL (0.7-1.3); TOTAL BILIRUBIN 0.4 mg/dL (0.0-1.0)
[2018-10-18 13:29] LABS: ALBUMIN 2.1 g/dL (3.4-5.0)
[2018-10-18 15:28] LABS: APPEARANCE,URINE CLEAR (CLEAR); BILIRUBIN,URINE NEGATIVE (NEGATIVE); BLOOD, URINE NEGATIVE (NEGATIVE); COLOR,URINE YELLOW (YELLOW); LEUKOCYTE ESTERASE ,URINE NEGATIVE (NEGATIVE); NITRITE, URINE NEGATIVE (NEGATIVE); UGLUCOSE NEGATIVE (NEGATIVE)
--- NOTE | 2018-10-18 15:52 | NUR ---
Patient discharged with v/s stable. Written and verbal after care instructions given and explained. Patient verbalized understanding. Wheel Chair Assisted with by caregiver. All questions addressed prior to discharge. Advised to follow up with PMD.
[2018-10-18 15:53] VITALS: BP 99/68
== END 2018-10-18 15:52 | disposition home or self-care (01) ==
LOC: MED 11:22
DX: R11.10 Vomiting, unspecified (principal); Z98.890 Other specified postprocedural states; E11.9 Type 2 diabetes mellitus without complications; K21.9 Gastro-esophageal reflux disease without esophagitis; I10 Essential (primary) hypertension; Z93.3 Colostomy status; Z79.899 Other long term (current) drug therapy; Z88.5 Allergy status to narcotic agent
CPT/HCPCS: 36415; 71045; 74176; 80053; 81003; 82150; 83690; 85025; 85610; 85730; 86886; 86900; 86901; 93005; 96361; 96374; 96375; 99284; J2405; J2765; J3490; J7030; Q0092

== ENCOUNTER 2019-12-19 22:15 | Inpatient (IN) | payer OTHER, MEDICAID ==
[~2019-12-19] VITALS: Ht 165.1 cm; Wt 72.6 kg
[~2019-12-19 22:15] MED LIST changes: -FAMO-90 PO; -FERR325E14 PO; -LACT10SO11 PO; -MAGN1.7538 PO; +MAGN296S PO; -PAX10 PO; -POTA20TE15 PO; -POTA8TER12 PO; -ZAR2.5 PO; -[UNRECOGNIZED DRUG - CODE] OT
--- NOTE | 2019-12-19 22:16 | NUR ---
PT MINNA ALS. TAKEN TO BED 2
[2019-12-19 22:24] VITALS: BP 118/84
--- NOTE | 2019-12-19 22:29 | NUR ---
Dr. Dorado examining patient.
[2019-12-19] MEDS ORDERED: PANTOPRAZOLE 40 MG in SODIUM CHLORIDE FLUSH 250 ML IV ONE (22:35)
[2019-12-19] MEDS ORDERED: NACL 0.9% 1,000 ML IV SCH ×2 (22:35→23:51)
[2019-12-19] MEDS ORDERED: PANTOPRAZOLE 40 MG INJ VIAL ONE (23:00)
--- NOTE | 2019-12-19 23:21 | NUR ---
PT BIB AMBULANCE FROM [facility] FOR COFFEE GROUND EMESIS X 4 TODAY. PT NONVERBAL, HAS MULTIPLE MEDICAL ISSUES - COLOSTOMY, GERD, CHF, COPD, HERNIAS. NO ACTIVE VOMITING SINCE ARRIVAL AND STOOL IS NORMAL COLOR. ALLERGIES - CODEINE, MORPHINE MEDS - SEE CHART MED HX - SEE CHART
[2019-12-19 23:26] LABS: APPEARANCE,URINE SL CLOUDY (CLEAR); BILIRUBIN,URINE NEGATIVE (NEGATIVE); BLOOD, URINE NEGATIVE (NEGATIVE); COLOR,URINE YELLOW (YELLOW); LEUKOCYTE ESTERASE ,URINE NEGATIVE (NEGATIVE); NITRITE, URINE NEGATIVE (NEGATIVE); PH,URINE 5.5 (5.0-9.0); UGLUCOSE NEGATIVE (NEGATIVE)
[2019-12-19 23:35] LABS: CREATININE 0.9 mg/dL (0.6-1.3); TOTAL BILIRUBIN 0.4 mg/dL (0.0-1.0)
[2019-12-19 23:38] LABS: BASOPHILS # (AUTO) 0.1 K/uL (0.00-0.22); BASOPHILS % (AUTO) 0.8 % (0.0-2.0); EOSINOPHILS # (AUTO) 0.3 K/uL (0-0.4); EOSINOPHILS % (AUTO) 2.9 % (0.0-4.0); HEMATOCRIT 46.1 % (36-52); HEMOGLOBIN 15.8 g/dL (12.0-18.0); LYMPHOCYTES # (AUTO) 1.7 K/uL (2.0-11.5); LYMPHOCYTES % (AUTO) 15.7 % (20.5-51.1); MEAN CORPUSCULAR HEMOGLOBIN 32 pg (27-31); MEAN CORPUSCULAR HGB CONC 34 g/dL (33-37); MEAN CORPUSCULAR VOLUME 92.7 fL (80-94); MONOCYTES % (AUTO) 9.3 % (1.7-9.3); NEUTROPHILS # (AUTO) 7.6 K/uL (1.8-7.7); NEUTROPHILS % (AUTO) 71.3 % (42.2-75.2); PLATELET COUNT (AUTO) 254 K/uL (140-450); RED BLOOD CELL COUNT(AUTO) 4.97 MIL/uL (4.20-6.10); RED CELL DISTRIBUTION WIDTH 12.8 % (11.6-13.7); WHITE BLOOD COUNT (AUTO) 10.7 K/uL (4.8-10.8)
[2019-12-19 23:42] LABS: ANION GAP 15.2 (8-16); CARBON DIOXIDE 26.2 mmol/L (21-32); POTASSIUM 3.4 mmol/L (3.5-5.1)
[2019-12-19 23:48] LABS: RBC,URINE 0-5 /HPF (0-5); WBC,URINE 0-5 /HPF (0-5)
[2019-12-19] MEDS ORDERED: DOCUSATE SODIUM 100 MG GELCAP PO PRN (23:55)
[2019-12-19] MEDS ORDERED: ONDANSETRON 4 MG/2 ML VIAL IM/IVP PRN (23:55)
[2019-12-19] MEDS ORDERED: ACETAMINOPHEN 325 MG TAB PO PRN (23:55)
--- NOTE | 2019-12-20 00:20 | NUR ---
DR BOWEN AT BEDSIDE
[2019-12-20 00:21] LABS: MAGNESIUM 1.9 mg/dL (1.8-2.4); PHOSPHORUS 4.2 mg/dL (2.5-4.9); THYROID STIMULATING HORMONE 2.47 uIU/mL (0.34-3.74)
[2019-12-20] MEDS ORDERED: MAGNESIUM CITRATE 300 ML BTL PO PRN (00:50)
--- NOTE | 2019-12-20 01:25 | NUR ---
RECEIVED BEDSIDE REPORT FROM ER NURSE. ADMITTED A PATIENT FROM ER VIA RNEY. PATIENT AWAKE,ALERT BUT NON VERBAL. PATIENT IS DEVELOPMENTALLY DELAYED. SR WITH BBB ON COAL PULVERIZING OPERATOR, HR-77. VSS UPON ADMISSION,SATING 98% ON 3L/NC,AFEBRILE. ADMISSION HISTORY OBTAINED FROM THE PATIENT CHART. SKIN ASSESSMENT DONE. SKIN INTACT. MRSA SCREEN COMPLETED. ORIENTED PATIENT TO THE ROOM SETTING AND USE OF CALL LIGHT SYSTEM. SAFETY PRECAUTION IN PLACED. CALL LIGHT WITHIN REACH. WILL CONTINUE POC AND MONITORING.
--- NOTE | 2019-12-20 01:37 | NUR ---
Patient will be admitted to care of DR SHARMA. Admited to TELE. Will go to room 110B. Belongings list completed. Report to MI ARROYO.
[2019-12-20 01:50] VITALS: BP 113/64
[2019-12-20] MEDS ORDERED: cefTRIAXone 1,000 MG VIAL ONE (02:39)
[2019-12-20] MEDS: DEXT 5% /NACL 0.9% 1,000 ML IV SCH ×2 (02:47→18:33)
--- NOTE | 2019-12-20 03:25 | NUR ---
PATIENT SLEEPS OFF AND ON AND EASILY TO AROUSE. REPOSITIONED FOR COMFORT AND TO PREVENT SKIN BREAKDOWN. NO S/SX OF DISTRESS NOTED. CALL LIGHT WITHIN REACH. WILL CONTINUE POC AND MONITORING
[2019-12-20 04:00] VITALS: BP 108/68
--- NOTE | 2019-12-20 04:30 | NUR ---
CHECKED PATIENT VITAL SIGNS. VSS,AFEBRILE, SATING 98% ON RA. TURN THE O2 OFF FOR NOW. SR WITH BBB ON SUPERVISOR HEAVY EQUIPMENT. CALL LIGHT WITHIN REACH.WILL CONTINUE MONITORING AND POC.
[2019-12-20] MEDS: metroNIDAZOLE 500 MG/NS PREMIX 100 ML IV SCH ×3 (05:17→21:47)
--- NOTE | 2019-12-20 06:40 | NUR ---
PATIENT ASLEEP AT THIS TIME. NOT IN ANY DISTRESS. ALL NEEDS ATTENDED. CALL LIGHT WITHIN REACH. WILL ENDORSE THE PATIENT TO THE ONCOMING RN FOR CONTINUITY OF CARE.
--- NOTE | 2019-12-20 07:10 | NUR ---
RECEIVED REPORT FROM NIGHT NURSE PT IS ALERT AND AWAKE AND NON VERBAL, ON ROOM AIR, IV SITES INTACT AND PATENT,SKIN INTACT AND PATENT, WITH COLOSTOMY BAG ON LEFT LOWER QUADRANT, NO DISTRESS NOTED,SAFETY MEASURES IN PLACE AND CALL LIGHT WITHIN REACH. WILL CONTINUE TO MONITOR.
[2019-12-20 07:34] LABS: ANION GAP 10.8 (8-16); CARBON DIOXIDE 27.7 mmol/L (21-32); CREATININE 0.8 mg/dL (0.6-1.3); POTASSIUM 3.5 mmol/L (3.5-5.1)
[2019-12-20 07:43] LABS: BASOPHILS % (AUTO) 0.5 % (0.0-2.0); EOSINOPHILS # (AUTO) 0.3 K/uL (0-0.4); EOSINOPHILS % (AUTO) 3.1 % (0.0-4.0); HEMATOCRIT 40.9 % (36-52); LYMPHOCYTES # (AUTO) 1.9 K/uL (2.0-11.5); LYMPHOCYTES % (AUTO) 22.3 % (20.5-51.1); MEAN CORPUSCULAR HEMOGLOBIN 32 pg (27-31); MEAN CORPUSCULAR HGB CONC 34 g/dL (33-37); MEAN CORPUSCULAR VOLUME 93.4 fL (80-94); MONOCYTES % (AUTO) 11.9 % (1.7-9.3); NEUTROPHILS # (AUTO) 5.2 K/uL (1.8-7.7); NEUTROPHILS % (AUTO) 62.2 % (42.2-75.2); PLATELET COUNT (AUTO) 222 K/uL (140-450); RED BLOOD CELL COUNT(AUTO) 4.38 MIL/uL (4.20-6.10); WHITE BLOOD COUNT (AUTO) 8.4 K/uL (4.8-10.8)
[2019-12-20 07:44] LABS: MAGNESIUM 1.9 mg/dL (1.8-2.4); PHOSPHORUS 3.4 mg/dL (2.5-4.9)
[2019-12-20 08:00] VITALS: BP 115/61
[2019-12-20] MEDS ORDERED: POTASSIUM CHLORIDE 40 MEQ, LIDOCAINE MPF 1% 25 MG in NACL 0.9% 250 ML IV SCH (08:00)
[2019-12-20 08:28] LABS: CHOL/HDL RATIO 4.1 (1-4.5)
--- NOTE | 2019-12-20 08:30 | NUR ---
MEDICATIONS GIVEN PT IS COOPERATIVE. VITAL SIGN CHECK PRIOR TO MEDICATIONS BP 110/63 WA 69. SAFETY MEASURES IN PLACE CALL LIGHT WITHIN REACH. WILL CONTINUE TO MONITOR.
[2019-12-20] MEDS: LACTULOSE 20 GM/30 ML UDC PO SCH (08:31)
[2019-12-20] MEDS: DOCUSATE SOD/SENNA 50/8.6 MG 1 TAB PO SCH (08:32)
[2019-12-20] MEDS: LORATADINE 10 MG TAB PO SCH (08:32)
[2019-12-20] MEDS: TAMSULOSIN 0.4 MG CAP PO SCH (08:32)
[2019-12-20] MEDS: DIAZEPAM 5 MG TAB PO SCH ×2 (08:33→21:48)
[2019-12-20] MEDS: METOPROLOL 25 MG TAB PO SCH ×2 (08:33→21:48)
[2019-12-20] MEDS: POLYETHYLENE GLYCOL 17 GM/PKT PO SCH (08:34)
[2019-12-20] MEDS: PANTOPRAZOLE 40 MG INJ VIAL IVP SCH ×2 (08:34→21:47)
--- NOTE | 2019-12-20 08:50 | NUR ---
NURSE RADHA FROM [facility] CALLED AT THIS TIME TO GET UPDATES WITH THE PATIENT. CONTACT DETAILS #[phone]. WILL CONTINUE TO MONITOR.
[2019-12-20] MEDS ORDERED: DOCUSATE SODIUM 250 MG GELCAP PO SCH (09:00)
--- NOTE | 2019-12-20 10:00 | NUR ---
PT PULLED HIS IV AT THIS TIME.
--- NOTE | 2019-12-20 10:45 | NUR ---
NGT INSERTED AT THIS TIME AND PLACE PATIENT ON SOFT RESTRAIN TO PREVENT HIM FROM PULLING THE NGT. SAFETY MEASURES IN PLACE AND CALL LIGHT WITHIN REACH. WILL CONTINUE TO MONITOR.
[2019-12-20 12:00] VITALS: BP 123/66
--- NOTE | 2019-12-20 12:00 | NUR ---
MADE ROUND AND CHECK VITAL SIGNS PT IS STABLE AND COOPERATIVE. SAFETY MEASURES IN PLACE, CALL LIGHT WITHIN REACH.WILL CONTINUE TO MONITOR
[2019-12-20] MEDS ORDERED: MAGNESIUM CITRATE 300 ML BTL PO SCH (13:25)
--- NOTE | 2019-12-20 14:21 | NUR ---
NGT REMOVED AT THIS TIME PER DR YUN ORDERS. SAFETY MEASURES IN PLACE AND CALL LIGHT WITHIN REACH.WILL CONTINUE TO MONITOR
[2019-12-20] MEDS ORDERED: FUROSEMIDE 40 MG TAB PO SCH (15:00)
--- NOTE | 2019-12-20 15:00 | NUR ---
CALLED [facility] [phone] TO GET CONSENT BUT NOT ANSWERING LEFT VOICE MESSAGE TO CALL BACK [facility]. TRIED TO CALL GERARDO WARD AT [phone] BUT THE LINE IS BUSY.
--- NOTE | 2019-12-20 15:15 | NUR ---
IV INSERTED AT THIS TIME BY ER NURSE. INTACT AND PATENT
[2019-12-20 16:00] VITALS: BP 108/62
--- NOTE | 2019-12-20 17:21 | NUR ---
CALLED PATIENTS NEXT OF [facility] OTHER RELATIONSHIP CHON IZQUIERDO AT [phone] BUT NO ANSWER. LEFT VOICEMAIL MESSAGE AND INFORMED HER ABOUT THE PROCEDURE.
--- NOTE | 2019-12-20 19:15 | NUR ---
ENDORSED PT TO NIGHT NURSE FOR CONTINUITY OF CARE PT IS STABLE
--- NOTE | 2019-12-20 19:16 | NUR ---
RECEIVED BEDSIDE REPORT FROM AM SHIFT NURSE. PATIENT IS LYING IN BED AWAKE AND ALERT. NO SOB OR DISTRESS NOTED NOTED ON ROOM AIR. RESPIRATIONS EVEN AND UNLABORED. IV ACCESS ON RIGHT FOREARM 20 GAUGE, PATENT, INTACT AND INFUSING WELL. INITIAL ASSESSMENT DONE. SKIN IS INTACT. PATIENT IS BEDBOUND. BED IN LOW, BED LOCKED. SAFETY MEASURES IN PLACE. WILL CONTINUE TO MONITOR PATIENT.
[2019-12-20 20:00] VITALS: BP 141/95
--- NOTE | 2019-12-20 20:28 | NUR ---
LEFT MESSAGE FOR SECONDARY TEACHER GERARDO TO CALL BACK TO OBTAIN CONSENT.
--- NOTE | 2019-12-20 20:29 | NUR ---
CALLED CHON THE CONSERVATOR AND LEFT A MESSAGE. TO OBTAIN CONSENT.
--- NOTE | 2019-12-20 20:40 | NUR ---
GERARDO CALLED BACK AND SAID THAT ONLY THE CONSERVATOR CAN MAKE THE DECISION FOR THE CONSENT.
--- NOTE | 2019-12-20 22:00 | NUR ---
ROUNDS DONE. PATIENT RESTING WITH EYES CLOSE. VISIBLE CHEST RISE AND FALL NOTED. WILL CONTINUE TO MONITOR PT.
[2019-12-21] VITALS: BP 104/67
--- NOTE | 2019-12-21 | NUR ---
VITALS DONE. NO DISTRESS NOTED. PATIENT RESTING COMFORTABLY.CALL LIGHT WITHIN REACH.
--- NOTE | 2019-12-21 02:15 | NUR ---
ROUNDS DONE. PATIENT SLEEPING. WILL CONTINUE TO MONITOR PT.
[2019-12-21 04:00] VITALS: BP 107/66
--- NOTE | 2019-12-21 04:00 | NUR ---
VITALS DONE. AM CARE PROVIDED. NO SIGN AND SYMPTOMS OF DISTRESS NOTED. WILL CONTINUE TO MONITOR PT.
[2019-12-21] MEDS: metroNIDAZOLE 500 MG/NS PREMIX 100 ML IV SCH ×2 (05:07→12:45)
--- NOTE | 2019-12-21 06:34 | NUR ---
PATIENT IN STABLE CONDITION. WILL ENDORSE THE PT TO THE ONCOMING RN FOR CONTINUITY OF CARE. CALL LIGHT WITHIN REACH.
[2019-12-21 06:57] LABS: BASOPHILS % (AUTO) 0.4 % (0.0-2.0); EOSINOPHILS # (AUTO) 0.5 K/uL (0-0.4); HEMATOCRIT 38.3 % (36-52); HEMOGLOBIN 12.8 g/dL (12.0-18.0); LYMPHOCYTES # (AUTO) 1.9 K/uL (2.0-11.5); MEAN CORPUSCULAR HEMOGLOBIN 32 pg (27-31); MEAN CORPUSCULAR HGB CONC 34 g/dL (33-37); MEAN CORPUSCULAR VOLUME 94.8 fL (80-94); MONOCYTES # (AUTO) 0.7 K/uL (0.8-1.0); MONOCYTES % (AUTO) 10.4 % (1.7-9.3); NEUTROPHILS # (AUTO) 3.8 K/uL (1.8-7.7); NEUTROPHILS % (AUTO) 55.2 % (42.2-75.2); PLATELET COUNT (AUTO) 223 K/uL (140-450); RED BLOOD CELL COUNT(AUTO) 4.04 MIL/uL (4.20-6.10); RED CELL DISTRIBUTION WIDTH 13.1 % (11.6-13.7); WHITE BLOOD COUNT (AUTO) 6.9 K/uL (4.8-10.8)
--- NOTE | 2019-12-21 07:15 | NUR ---
RECEIVED PT FROM CLAIMS CONSULTANT NURSESHASHANK, PT IS AWAKE AND LYING ON THE BED, FALL AND SAFETY PRECAUTION INITIATED, IV LINE ON THE RT FA G. 20 WITH D5NS INFUSING AT 60ML/HR, PT IS ON ROOM AIR AND NO SIGN OF DISTRESS NOTED, WILL MONITOR PT.
[2019-12-21 07:20] LABS: MAGNESIUM 2.4 mg/dL (1.8-2.4); PHOSPHORUS 2.3 mg/dL (2.5-4.9)
[2019-12-21 07:26] LABS: ANION GAP 12.5 (8-16); CARBON DIOXIDE 28.7 mmol/L (21-32); CREATININE 0.7 mg/dL (0.6-1.3); POTASSIUM 4.2 mmol/L (3.5-5.1)
[2019-12-21 08:00] VITALS: BP 104/78
[2019-12-21] MEDS: METOPROLOL 25 MG TAB PO SCH ×2 (09:00→20:35)
[2019-12-21] MEDS: POLYETHYLENE GLYCOL 17 GM/PKT PO SCH (09:09)
[2019-12-21] MEDS: PANTOPRAZOLE 40 MG INJ VIAL IVP SCH (09:10)
--- NOTE | 2019-12-21 09:10 | NUR ---
PT WAS GIVEN THE SCHEDULED AM MEDICATIONS, ASPIRATION PRECAUTION INITIATED, MEDICATIONS CRUSHED AND GIVEN WITH APPLE SAUCE, PT TOLERATED THE MEDICATIONS, NO SIGN OF DISTRESS NOTED, WILL MONITOR PT.
[2019-12-21] MEDS: LACTULOSE 20 GM/30 ML UDC PO SCH (09:13)
[2019-12-21] MEDS: LORATADINE 10 MG TAB PO SCH (09:15)
[2019-12-21] MEDS: DOCUSATE SOD/SENNA 50/8.6 MG 1 TAB PO SCH (09:15)
[2019-12-21] MEDS: TAMSULOSIN 0.4 MG CAP PO SCH (09:16)
[2019-12-21] MEDS: DIAZEPAM 5 MG TAB PO SCH ×2 (09:16→20:34)
--- NOTE | 2019-12-21 11:03 | NUR ---
VIDEO EDITING INTERNSHIP NOTE: Basic Screen: Yes High Risk DC Screen Tobin: ED Moore Relationship: OTHER RELATIONSHIP Pre-Admission Living Arrangements: Other Other: [facility] Prior ADL Total/Dependent Current Home Health Name/Tel: N/A Current DME/02 Name/Tel: [facility] Current Hospice Name/Tel: N/A Current Dialysis Name/Tel: N/A Healthcare Decision Maker: Community/supportive employment case manager Other: [facility] [phone] Advance Directive No Physician Orders for Life Sustaining Treatment Form No Patient/Family Have Educational Needs No Discipline: Case Mgt/Social Svcs Tentative Discharge Plan/Destination: Other Other: [facility] Will require assistance post discharge: No Referred to Homoeopath: No Tentative Discharge Plan Summary: PATIENT IS A 69-YEAR-OLD MALE ADMITTED FOR GI BLEED. PATIENT HAS PMHX OF DEVELOPMENTAL DELAY, QUADRIPLEGIA, CEREBRAL PALSY, CHRONIC CONSTIPATION, HYPERTENSION, CHF, AND COLOSTOMY. PATIENT WAS ADMITTED FROM [facility]. SW CONTACTED ARPAN ARREOLA [facility] [phone]. 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 ARPAN STATED THAT [facility] MAKES MEDICAL DECISIONS FOR PATIENT. ARPAN REPORTED THAT PATIENT REQUIRES TOTAL ASSISTANCE WITH ADLS. ARPAN PROVIDED CNOTACT INFORMATION FOR MECHANICAL MAINTENANCE INSTRUCTOR [facility] [phone]. TENTATIVE DISCHARGE PLAN IS TO RETURN TO [facility]. NO FURTHER NEEDS IDENTIFIED. Signature: ENRIQUE SINGH Date: Dec 21, 2019 Time: 11:02
[2019-12-21] MEDS: DEXT 5% /NACL 0.9% 1,000 ML IV SCH (11:21)
[2019-12-21] MEDS ORDERED: diphenhydrAMINE 50 MG/ML VIAL ONE (11:48)
[2019-12-21] MEDS ORDERED: fentaNYL 0.05 MG/ML VIAL ONE (11:48)
[2019-12-21] MEDS ORDERED: MIDAZOLAM 2 MG/2 ML VIAL ONE (11:49)
[2019-12-21 12:00] VITALS: BP 105/67
--- NOTE | 2019-12-21 12:05 | NUR ---
DC PLANNIN YRS OLD MALE PATIENT WAS ADMITTED FROM [facility] WITH A DX OF GI BLEEDING. PT HAS A HX OF DEVELOPMENTAL DELAY, SPASTIC CEREBRAL PALSY., CHF AND CHRONIC CONSTIPATION WITH COLOSTOMY. CT ABD/PELVIS SHOWED FEW DISTENDED SMALL BOWEL LOOPS IN THE LEFT ABDOMEN AND SUSPICIOUS FOCAL ILEUS AND PARTIAL BOWEL OBSTRUCTION. STARTED IV PROTONIX , IV ABX ROCEPHIN AND IV FLAGYL . CONSULTED WITH GI DR VALVERDE . DC PLAN TO GO BACK TO [facility] WHEN STABLE CM TO FOLLOW. Addendum: 12/22/19 at 1107 by Hattie Armenta CM DC PLANNING: CALLED [facility] [phone] SPOKE WITH ANDRÉS ARROYO STATED THEY ARE REQUESTING A COVID TEST TO BE DONE. NOTIFIED DR HUTCHISON ORDERED COVID TEST SPOKE WITH CRUZ ESTRADA/BRENT TO TEST THE PATIENT AND CALLED LAB SPOKE WITH AND CLARIFIED WITH MAMADOU THE DIRECTOR OF AGRICULTURE TIME WILL BE 11:30 AM CM TO FOLLOW Addendum: 12/23/19 at 1204 by Cookie Barragan CM SPOKE WITH THE RN FELICITY [phone] SHE SAID THAT THEY RECEIVED THE FAX AND SHE IS WAITING ON APPROVAL FROM 3D ARTIST CHON [facility] [phone] Addendum: 12/23/19 at 1320 by Cookie Barragan CM FOLLOWED UP WITH FELICITY SHE STATED THAT SHE IS WAITING ON THE OKAY FROM MALI GIVENS AT [facility], MALVIN PUGA WILL BE PROVIDING TRANSPORTATION FOR PATIENT. Addendum: 12/23/19 at 1546 by Cookie Barragan CM PATIENTS TRANSPORTATION WILL BE HERE TODAY TO PICK BETWEEN 4:30-5:00 P.M. NOTIFIED PATIENTS NURSE TOMY SPRAGUE
[2019-12-21 12:07] LABS: T4 (THYROXINE) 7.9 ug/dL (4.5-12.0)
--- NOTE | 2019-12-21 12:45 | NUR ---
PT WAS GIVEN FLAGYL IVPB NOW, WILL MONITOR PT.
[2019-12-21] MEDS ORDERED: MAGNESIUM CITRATE 300 ML BTL PO PRN (13:00)
--- NOTE | 2019-12-21 13:25 | NUR ---
PT IS OFF THE UNIT NOW FOR AN EGD.
--- NOTE | 2019-12-21 14:10 | NUR ---
PT IS BACK TO ROOM NOW FROM [facility], V/S, BP IS 110/74, PULSE IS 59, O2 SATURATION IS 96%, TEMP. IS 97.4, RESPIRATION IS 18/MIN, NO SIGN OF DISTRESS NOTED AND WILL MONITOR PT.
--- NOTE | 2019-12-21 14:15 | NUR ---
X-RAY FOR THE SMALL BOWEL FOLLOW THROUGH DONE TO PT NOW.
--- NOTE | 2019-12-21 14:30 | NUR ---
SWALLOW EVALUATION IS BEING DONE TO PT NOW, RECOMMENDED FOR A PUREED DIET AND THIN LIQUIDS GIVEN THROUGH SPOON BECAUSE PT REFUSED TO SIP IN THE STRAW
[2019-12-21] MEDS ORDERED: METOCLOPRAMIDE 10 MG/2 ML INJ VIAL IVP ONE (14:35)
[2019-12-21] MEDS ORDERED: MIDAZOLAM 2 MG/2 ML VIAL IVP ONE (14:35)
[2019-12-21] MEDS ORDERED: fentaNYL 0.05 MG/ML VIAL IVP ONE (14:35)
[2019-12-21 16:00] VITALS: BP 111/66
[2019-12-21] MEDS: METOCLOPRAMIDE 10 MG/2 ML INJ VIAL IVP SCH ×2 (16:18→20:35)
[2019-12-21] MEDS: SENNA 8.6 MG TAB PO SCH (16:18)
--- NOTE | 2019-12-21 16:18 | NUR ---
PT WAS GIVEN ,MEDICATIONS VIA IV PUSH AND ORAL TABLETS, WILL MONITOR PT.
--- NOTE | 2019-12-21 16:55 | NUR ---
ST CLARIFICATION NOTE Pt PRESENTED W/ FUNCTIONAL SWALLOW FOR Pt. ABLE TO TOLERATE PUREE FOOD AND THIN LIQUIDS BY TSP W/O OVERT S/S OF ASPIRATION OR PENETRATION NOTED. Pt WAS ABLE TO SIP MOST OF LIQUID FROM TSP; BENEFITED FROM VERBAL CUES WHEN PRESENTED WITH SPOON. AP TRANSFER WAS ADEQUATE FOR Pt, FOLLOWED BY TIMELY SWALLOW RESPONSE AND FULL LARYNGEAL ELEVATION AND EXCURSION. Pt TURNED HEAD AWAY WHENEVER PRESENTED WITH LIQUIDS BY CUP OR STRAW. REC PUREE FOOD AND THIN LIQUIDS BY TSP ONLY. ASPIRATION PRECAUTIONS, ORAL CARE, AND FEEDER NEEDED. DO NOT POUR FOOD/LIQUID INTO MOUTH. D/C SKILLED ST FOR SWALLOW TX. Pt IS AT [facility].
[2019-12-21] MEDS: SODIUM PHOS / POTASSIUM PHOS 1 PKT PDR PO SCH (18:02)
[2019-12-21] MEDS: NACL 0.45% 1,000 ML IV SCH (18:02)
--- NOTE | 2019-12-21 19:19 | NUR ---
ENDORSED PT TO INFORMATION ENGINEER NURSES, ROXANNA FOR CONTINUITY OF CARE, THE LAST IMAGE OF THE SMALL BOWEL FOLLOW THROUGH IS BEING DONE NOW.
--- NOTE | 2019-12-21 19:25 | NUR ---
RECEIVED REPORT FROM DAY SHIFT NURSE. PATIENT AWAKE, ALERT. PATIENT IS BEDBOUND. ON ROOM AIR, RESPIRATIONS EVEN AND UNLABORED. SKIN IS INTACT. NOTED IV SITE ON RIGHT FOREARM 20 G RUNNING 0.5 NS @ 70 ML/HR. DENIES ANY DISCOMFORT OR PAIN. REVIEWED PLAN OF CARE TO PATIENT, VERBALIZED UNDERSTANDING. SAFETY MEASURES IN PLACE. CALL LIGHT WITHIN REACH. WILL CONTINUE TO MONITOR PATIENT.
[2019-12-21] MEDS ORDERED: DEXTROSE 50% 50 ML SYR IVP PRN (19:45)
[2019-12-21] MEDS ORDERED: INSULIN LISPRO SLIDING SCALE 100 UNITS/ML VIAL SUBQ PRN (19:45)
[2019-12-21 20:00] VITALS: BP 101/59
[2019-12-21] MEDS: BLOOD GLUCOSE MONITORING 1 DEV DEV FS SCH (20:00)
--- NOTE | 2019-12-21 20:25 | NUR ---
MD ORDERED ACCUCHECK FOR THE PATIENT. BLOOD SUGAR CHECKED AND REVEALED 109 MG/DL RESULT. NO INSULIN COVERAGE NEEDED. WILL CONTINUE TO MONITOR PATIENT.
[2019-12-21] MEDS ORDERED: CRUSHER, PILL MC ONE (20:31)
--- NOTE | 2019-12-21 20:35 | NUR ---
ALL SCHEDULED PO MEDICATIONS GIVEN. PATIENT WAS ABLE TO SWALLOW WELL. MIXED PO MEDICATIONS WITH JELLO. TOLERATED WELL. PATIENT WAS ABLE TO TOLERATE 50 ML OF MAG CITRATE ONLY. PATIENT REFUSED THE MEDICATION THEREAFTER. WILL CONTINUE TO MONITOR PATIENT.
[2019-12-21] MEDS ORDERED: MAGNESIUM CITRATE 300 ML BTL PO SCH (21:00)
--- NOTE | 2019-12-21 23:30 | NUR ---
CHECKED PT AND PATIENT IS SLEEPING COMFORTABLY. NO DISTRESS NOTED. RESPIRATIONS EVEN AND UNLABORED. WILL CONTINUE TO MONITOR PATIENT.
[2019-12-22] VITALS: BP 94/67
--- NOTE | 2019-12-22 02:29 | NUR ---
MADE ROUNDS. PATIENT IS AWAKE. NO DISTRESS NOTED. SAFETY MEASURES IN PLACE. WILL CONTINUE TO MONITOR PATIENT.
[2019-12-22 04:00] VITALS: BP 98/51
[2019-12-22] MEDS: METOCLOPRAMIDE 10 MG/2 ML INJ VIAL IVP SCH (04:05)
--- NOTE | 2019-12-22 04:05 | NUR ---
SCHEDULED MEDICATION GIVEN. NO ADVERSE REACTION NOTED. PATIENT TOLERATED WELL. WILL CONTINUE TO MONITOR PATIENT.
[2019-12-22] MEDS: BLOOD GLUCOSE MONITORING 1 DEV DEV FS SCH ×4 (06:07→20:38)
[2019-12-22] MEDS: NACL 0.45% 1,000 ML IV SCH ×3 (06:23→17:34)
--- NOTE | 2019-12-22 06:44 | NUR ---
PT IS IN STABLE CONDITION. ENDORSED PT TO DAY SHIFT NURSE FOR CONTINUITY OF CARE.
--- NOTE | 2019-12-22 07:15 | NUR ---
RECEIVED PATIENT FROM NIGHT NURSE. PATIENT IS AWAKE, RESPONSIVE TO SOUNDS. PATIENT IS ON ROOM AIR, BREATHING UNLABORED. BED IN LOW POSITION, CALL LIGHT WITHIN REACH. WILL CONTINUE WITH CARE.
[2019-12-22 08:00] VITALS: BP 103/70
--- NOTE | 2019-12-22 08:45 | NUR ---
PATIENT WAS GIVEN DIAZEPAM 5MG PO. WASTED DIAZEPAM 2.5MG AND GIVEN DIAZEPAM 2.5MG PER ORDER. PARAMETERS CHECK, WNL
[2019-12-22] MEDS: SODIUM PHOS / POTASSIUM PHOS 1 PKT PDR PO SCH (08:55)
[2019-12-22] MEDS: DIAZEPAM 5 MG TAB PO SCH (08:56)
[2019-12-22] MEDS: TAMSULOSIN 0.4 MG CAP PO SCH (08:57)
[2019-12-22] MEDS: SENNA 8.6 MG TAB PO SCH ×2 (08:57→09:00)
[2019-12-22] MEDS: POLYETHYLENE GLYCOL 17 GM/PKT PO SCH ×2 (08:58→09:00)
[2019-12-22] MEDS ORDERED: PANTOPRAZOLE 40 MG INJ VIAL IVP SCH (09:00)
[2019-12-22] MEDS: METOPROLOL 25 MG TAB PO SCH (09:00)
--- NOTE | 2019-12-22 09:07 | NUR ---
MIRALAX AND SENNA WAS NOT GIVEN, COLOSTOMY BAG HAS LIQUID STOOL NOTED.
--- NOTE | 2019-12-22 09:15 | NUR ---
MORNING ROUTINE MEDICATIONS GIVEN. PATIENT TOLERATED WELL. LOPRESSOR HELD D/T PARAMETERS HR 58 MANUAL, BP 103/70. WILL CONTINUE TO MONITOR.
[2019-12-22 12:00] VITALS: BP 101/74
[2019-12-22] MEDS ORDERED: DIAZEPAM 5 MG TAB PO PRN (12:20)
--- NOTE | 2019-12-22 14:32 | NUR ---
12/22/19 RD INITIAL ASSESSMENT COMPLETED PLEASE REFER TO NUTRITION ASSESSMENT UNDER CARE ACTIVITY FOR ESTIMATED NUTRITIONAL NEEDS. 1. CONTINUE CLEAR LIQUID DIET TOLERATED 2. RECOMMEND ENSURE CLEAR TID 3. ADVANCE TO PUREE DIET WITH THIN LIQUIDS PER COMPUTER TECH 4. PROVIDE ASSISTANCE WITH MEALS 5. RECOMMEND ENSURE IF PO INTAKE <75% 6. RD TO FOLLOW-UP 2-3 DAYS, HIGH RISK JANIS DAMON, DIETER
[2019-12-22 16:00] VITALS: BP 136/70
[2019-12-22] MEDS: METOCLOPRAMIDE 10 MG TAB PO SCH (16:31)
--- NOTE | 2019-12-22 19:25 | NUR ---
ENDORSED PATIENT TO NIGHT NURSE. PATIENT IN STABLE CONDITION.
--- NOTE | 2019-12-22 19:26 | NUR ---
RECEIVED BEDSIDE REPORT FROM DAY RN. PT IS AAOX0 APHASIC AND MENTALLY DELAYED. RESPIRATIONS ARE EQUAL AND UNLABORED ON ROOM AIR. SKIN IS INTACT. PT IS BEDREST. SKIN IS WARM AND DRY TO TOUCH. PT WITH COLOSTOMY BAG WITH LIQUID BROWN STOOL NOTED. IV ON R FA 20G IVF PER ORDERS. C/C GI BLEED. CONSULT WITH DR VALVERDE HAD EGD DONE YESTERDAY PER DR VALVERDE CONTINUE GENTLE LAXATIVES. POC DISCUSSED. COVID NEG ON STANDARD ISOLATION. SAFETY MEASURES ARE IN PLACE. WILL CONTINUE TO MONITOR.
--- NOTE | 2019-12-22 20:30 | NUR ---
BG 82 NO COVERAGE NEEDED. PT RESTING COMFORTABLY IN BED NO S/S OF DISTRESS. SAFETY MEASURES ARE IN PLACE. WILL CONTINUE TO MONITOR.
--- NOTE | 2019-12-22 22:13 | NUR ---
PATIENT IS SLEEPING COMFORTABLY IN BED WITH EYES CLOSED. CHEST RISE AND FALL. CALL LIGHT IS WITHIN REACH.
[2019-12-23] VITALS: BP 121/47
--- NOTE | 2019-12-23 | NUR ---
PATIENT VITAL SIGNS ARE WITHIN NORMAL LIMITS. ALL SAFETY MEASURES ARE IN PLACE. WILL CONTINUE TO MONITOR.
--- NOTE | 2019-12-23 02:03 | NUR ---
PT IS SLEEPING COMFORTABLY IN BED WITH EYES CLOSED. CHEST RISE AND FALL NOTED. CALL LIGHT IS WITHIN REACH.
--- NOTE | 2019-12-23 05:00 | NUR ---
PATIENT WAS CLEANED AND REPOSITION FOR COMFORT. EMPTIED 50 CC IN COLOSTOMY BAG. ALL SAFETY MEASURES ARE IN PLACE. WILL CONTINUE TO MONITOR.
[2019-12-23 06:17] LABS: BASOPHILS # (AUTO) 0.1 K/uL (0.00-0.22); BASOPHILS % (AUTO) 0.7 % (0.0-2.0); EOSINOPHILS # (AUTO) 0.6 K/uL (0-0.4); EOSINOPHILS % (AUTO) 8.6 % (0.0-4.0); HEMATOCRIT 39.4 % (36-52); HEMOGLOBIN 13.4 g/dL (12.0-18.0); LYMPHOCYTES # (AUTO) 2.4 K/uL (2.0-11.5); LYMPHOCYTES % (AUTO) 33.6 % (20.5-51.1); MEAN CORPUSCULAR HEMOGLOBIN 32 pg (27-31); MEAN CORPUSCULAR HGB CONC 34 g/dL (33-37); MEAN CORPUSCULAR VOLUME 93.1 fL (80-94); MONOCYTES # (AUTO) 0.7 K/uL (0.8-1.0); MONOCYTES % (AUTO) 9.9 % (1.7-9.3); NEUTROPHILS # (AUTO) 3.4 K/uL (1.8-7.7); NEUTROPHILS % (AUTO) 47.2 % (42.2-75.2); PLATELET COUNT (AUTO) 233 K/uL (140-450); RED BLOOD CELL COUNT(AUTO) 4.23 MIL/uL (4.20-6.10); RED CELL DISTRIBUTION WIDTH 12.9 % (11.6-13.7); WHITE BLOOD COUNT (AUTO) 7.3 K/uL (4.8-10.8)
[2019-12-23] MEDS: BLOOD GLUCOSE MONITORING 1 DEV DEV FS SCH ×3 (06:22→16:17)
[2019-12-23] MEDS ORDERED: LANSOPRAZOLE 30 MG CAPDR PO SCH (06:30)
[2019-12-23] MEDS: METOCLOPRAMIDE 10 MG TAB PO SCH ×3 (06:32→16:17)
--- NOTE | 2019-12-23 06:32 | NUR ---
ADMINISTERED PAULINO MEDICATIONS PER ORDERS. PT TOLERATED WELL. DR HUTCHISON AT BEDSIDE POC DISCUSSED WITH PT. ALL SAFETY MEASURES ARE IN PLACE. WILL CONTINUE TO MONITOR.
[2019-12-23 06:45] LABS: ANION GAP 14.5 (8-16); CARBON DIOXIDE 25.8 mmol/L (21-32); CREATININE 0.6 mg/dL (0.6-1.3); POTASSIUM 4.3 mmol/L (3.5-5.1)
[2019-12-23 06:48] LABS: MAGNESIUM 1.9 mg/dL (1.8-2.4); PHOSPHORUS 2.9 mg/dL (2.5-4.9)
--- NOTE | 2019-12-23 07:17 | NUR ---
GAVE BEDSIDE REPORT TO DAY RN. PT ENDORSED IN STABLE CONDITION. WILL CONTINUE TO MONITOR.
--- NOTE | 2019-12-23 07:48 | NUR ---
RECEIVED REPORT FROM NIGHT NURSE. APHASIC, FLACC 0, NO SOB, ON RA, AFEBRILE. BEDBOUND. IV SITE RFA 20G, ON 1/2 NS AT 30CC/HR. SKIN INTACT. COLOSTOMY INTACT. SAFETY PRECAUTIONS IN PLACE. ON STANDARD ISOLATION. CALL LIGHT WITHIN REACH. WILL CONTINUE TO MONITOR
[2019-12-23] MEDS: TAMSULOSIN 0.4 MG CAP PO SCH (08:52)
[2019-12-23] MEDS: POLYETHYLENE GLYCOL 17 GM/PKT PO SCH (08:52)
--- NOTE | 2019-12-23 09:10 | NUR ---
PT REFUSED MORNING MEDS MIXED WITH APPLE SAUCE. EXPLAINED BENEFITS OF MEDS BUT STILL REFUSED. PT KEEPS SHOVING THE MEDS AWAY WITH HIS HEAD
[2019-12-23 10:07] VITALS: BP 128/51
--- NOTE | 2019-12-23 10:45 | NUR ---
CALLED [facility] ([place]) [phone] SPOKE WITH KENDY ANTONY. GAVE REPORT AND DISCHARGE INSTRUCTIONS FOR PT. STILL WAITING FOR TRANSPORT TO BE ARRANGED
[2019-12-23] MEDS: NACL 0.45% 1,000 ML IV SCH (11:15)
--- NOTE | 2019-12-23 12:00 | NUR ---
AWAKE, FLACC 0, NO SOB. NO APPARENT DISTRESS
--- NOTE | 2019-12-23 14:15 | NUR ---
CHON FROM [facility] CALLED. THEY WILL BE ARRANGING TRANSPORT FOR PT
--- NOTE | 2019-12-23 15:45 | NUR ---
MALI TERRELL. P/U TIME FOR PT IS [phone]
[2019-12-23 16:00] VITALS: BP 117/71
--- NOTE | 2019-12-23 17:10 | NUR ---
PICKED UP BY [facility] TRANSPORT VAN VIA PERSONAL WHEELCHAIR. IN STABLE CONDITION
== END 2019-12-23 17:10 | DRG 388 ==
LOC: MED 22:15 → MTU 23:51
PROVIDERS: ADMIT General Practice; ATTEND General Practice
PROC: 0D9670Z Drainage of Stomach with Drainage Device, Via Natural or Artificial Opening (ICD-10-PCS; 2019-12-20)
PROC: 0DJ08ZZ Inspection of Upper Intestinal Tract, Via Natural or Artificial Opening Endoscopic (ICD-10-PCS; principal; 2019-12-21 13:30)
DX: K56.609 Unspecified intestinal obstruction, unspecified as to partial versus complete obstruction (principal); G80.0 Spastic quadriplegic cerebral palsy; R53.2 Functional quadriplegia; E44.0 Moderate protein-calorie malnutrition; E87.0 Hyperosmolality and hypernatremia; E87.6 Hypokalemia; Z68.26 Body mass index [BMI] 26.0-26.9, adult; K22.70 Barrett's esophagus without dysplasia; K59.09 Other constipation; K21.9 Gastro-esophageal reflux disease without esophagitis; Z93.3 Colostomy status; Z20.828 Contact with and (suspected) exposure to other viral communicable diseases; E83.39 Other disorders of phosphorus metabolism; N40.0 Benign prostatic hyperplasia without lower urinary tract symptoms; I50.9 Heart failure, unspecified; Z88.5 Allergy status to narcotic agent; Z88.6 Allergy status to analgesic agent; I11.0 Hypertensive heart disease with heart failure
CPT/HCPCS: 36415; 71045; 74018; 74250; 80048; 80053; 81001; 82150; 82272; 82948; 83036; 83690; 83735; 83880; 84100; 84436; 84443; 85025; 85610; 85730; 86886; 86900; 86901; 87081; 92610; 96365; 99291; C9113; J0696; J1200; J2001; J2250; J2765; J3010; J3480; J3490; J7030; J7042; J7060; J8597; Q0092

== ENCOUNTER 2020-01-23 14:55 | Inpatient (IN) | payer OTHER, MEDICAID, SELFPAY ==
[~2020-01-23] VITALS: Ht 157.5 cm; Wt 83.9 kg
--- NOTE | 2020-01-23 14:55 | NUR ---
Patient BIBA BLS, transferred to bed 9. RN evaluating patient at bedside.
[2020-01-23] MEDS ORDERED: ONDANSETRON 4 MG/2 ML VIAL IVP ONE (15:00)
[2020-01-23] MEDS ORDERED: PANTOPRAZOLE 40 MG INJ VIAL IVP ONE (15:00)
[2020-01-23 15:09] VITALS: BP 109/75
--- NOTE | 2020-01-23 15:16 | NUR ---
69 YO MALE BIBA FOR VOMITING BLACK LIQUID FOR 1HR. APPROX 5 TIMES IN THE LAST HOUR. PT NOT CURRENTLY VOMITING AT THIS TIME. PT IS NON VERBAL. PT DOES HAVE COLOSTOMY BAG IN PLACE. HX- PID, CHF, HTN, GERD, COLOSTOMY
[2020-01-23] MEDS ORDERED: MULT-1868 PO (15:27)
[2020-01-23] MEDS ORDERED: POTA20TE15 PO (15:27)
[2020-01-23] MEDS ORDERED: metroNIDAZOLE 500 MG/NS PREMIX 100 ML IV ONE (15:35)
--- NOTE | 2020-01-23 15:39 | NUR ---
PT TAKEN TO CT VIA TERRA
[2020-01-23] MEDS ORDERED: cefTRIAXone 1,000 MG VIAL ONE (15:47)
[2020-01-23 16:28] LABS: PROTHROMBIN TIME 10.4 secs (10.8-13.4)
[2020-01-23 16:31] LABS: ALBUMIN 3.3 g/dL (3.4-5.0); ANION GAP 13.7 (8-16); CARBON DIOXIDE 26.4 mmol/L (21-32); CREATININE 0.9 mg/dL (0.6-1.3); POTASSIUM 4.1 mmol/L (3.5-5.1); TOTAL BILIRUBIN 0.4 mg/dL (0.0-1.0)
[2020-01-23 16:41] LABS: BASOPHILS # (AUTO) 0.1 K/uL (0.00-0.22); BASOPHILS % (AUTO) 0.8 % (0.0-2.0); EOSINOPHILS # (AUTO) 0.3 K/uL (0-0.4); EOSINOPHILS % (AUTO) 2.4 % (0.0-4.0); HEMATOCRIT 47.5 % (36-52); HEMOGLOBIN 16.1 g/dL (12.0-18.0); LYMPHOCYTES # (AUTO) 1.9 K/uL (2.0-11.5); LYMPHOCYTES % (AUTO) 17.1 % (20.5-51.1); MEAN CORPUSCULAR HEMOGLOBIN 32 pg (27-31); MEAN CORPUSCULAR HGB CONC 34 g/dL (33-37); MEAN CORPUSCULAR VOLUME 94.8 fL (80-94); MONOCYTES % (AUTO) 9.3 % (1.7-9.3); NEUTROPHILS % (AUTO) 70.4 % (42.2-75.2); PLATELET COUNT (AUTO) 258 K/uL (140-450); RED BLOOD CELL COUNT(AUTO) 5.01 MIL/uL (4.20-6.10); RED CELL DISTRIBUTION WIDTH 13.2 % (11.6-13.7); WHITE BLOOD COUNT (AUTO) 11.3 K/uL (4.8-10.8)
[2020-01-23] MEDS: NACL 0.9% 1,000 ML IV SCH (16:47)
--- NOTE | 2020-01-23 17:15 | NUR ---
PT PULLED OUT NG TUBE. REPLACED NG TUBE WITH ANOTHER ONE IN THE SAME NARES.
--- NOTE | 2020-01-23 18:07 | NUR ---
PT IN BED RESTING. PT NOT IN DISTRESS. NG TUBE RUNNING AT THIS TIME.
--- NOTE | 2020-01-23 18:36 | NUR ---
PT HAD AN EPISODE OF VOMITING. APPROX 200ML OF BLACK COFFEE GROUND LIKE EMESIS
--- NOTE | 2020-01-23 18:46 | NUR ---
URINE COLLECTED VIA IN AND OUT CATH. URINE IN DIRTY UTILITY ROOM
[2020-01-23] MEDS ORDERED: ONDANSETRON 4 MG/2 ML VIAL IVP PRN (19:00)
[2020-01-23] MEDS ORDERED: ACETAMINOPHEN 325 MG TAB PO PRN (19:00)
--- NOTE | 2020-01-23 19:15 | NUR ---
REPORT RECEIVED FROM CRUZ ARAIZA FOR CONTINUATION OF CARE.
--- NOTE | 2020-01-23 19:16 | NUR ---
PT IN BED TRYING TO PULL OUT NG TUBE. PT IN SOFT WRIST RESTRAINTS. +CMS , CAP REFIL <3 , NO SKIN BREAKDOWN NOTED. NO ACUTE DISTRESS NOTED AT THIS TIME. VSS.
--- NOTE | 2020-01-23 19:20 | NUR ---
PLEASE CONTACT FELICITY AT [phone] FOR DISCHARGE ISSUES
[2020-01-23 19:27] LABS: CHOL/HDL RATIO 4.4 (1-4.5); FREE T4 (FREE THYROXINE) 1.28 ng/dL (0.76-1.46); MAGNESIUM 2.1 mg/dL (1.8-2.4); PHOSPHORUS 4.9 mg/dL (2.5-4.9); THYROID STIMULATING HORMONE 3.02 uIU/mL (0.34-3.74)
--- NOTE | 2020-01-23 19:30 | NUR ---
PT RESTING IN BED, LOCKED AND IN LOWEST POSITION ,HOB ELEVATED, SIDE RAILS X2 FOR PT SAFETY. PT AROUSABLE BY VERBAL STIMULATION, VSS, BREATHING EVEN AND UNLABORED.
[2020-01-23 20:22] LABS: APPEARANCE,URINE CLEAR (CLEAR); BILIRUBIN,URINE NEGATIVE (NEGATIVE); BLOOD, URINE NEGATIVE (NEGATIVE); COLOR,URINE YELLOW (YELLOW); LEUKOCYTE ESTERASE ,URINE NEGATIVE (NEGATIVE); NITRITE, URINE NEGATIVE (NEGATIVE); UGLUCOSE NEGATIVE (NEGATIVE)
[2020-01-23] MEDS: DOCUSATE SODIUM 100 MG GELCAP PO SCH (21:00)
--- NOTE | 2020-01-23 21:15 | NUR ---
PT RELEASED FROM SOFT WRIST RESTRAINTS. CMS+, CAP REFILL <3, NO SKIN BREAKDOWN NOTED. VSS. PT LAYING IN BED, LOCKED AND IN LOWEST POSITION, HOB ELEVATED, SIDE RAILS X2 FOR PT SAFETY.
--- NOTE | 2020-01-23 21:35 | NUR ---
PT ATTEMPTING TO PULL OUT NG TUBE. PT PLACED IN SOFT WRIST RESTRAINTS. CMS+, CAP REFILL <3, NO SKIN BREAKDOWN NOTED. VSS. PT LAYING IN BED, LOCKED AND IN LOWEST POSITION, HOB ELEVATED, SIDE RAILS X2 FOR PT SAFETY.
--- NOTE | 2020-01-23 23:15 | NUR ---
PT BP 94/59 , DR. HORN MADE AWARE. PER DR. HORN ADMINISTER 500 ML NS BOLUS.
[2020-01-23] MEDS ORDERED: NACL 0.9% 500 ML IV ONE (23:20)
--- NOTE | 2020-01-23 23:20 | NUR ---
PER RESIDENTS INSTRUCTIONS, ADMINISTERED 500 ML NS BOLUS.
--- NOTE | 2020-01-23 23:35 | NUR ---
PT RELEASED FROM SOFT WRIST RESTRAINTS. CMS+, CAP REFILL <3, NO SKIN BREAKDOWN NOTED. VSS. PT LAYING IN BED, LOCKED AND IN LOWEST POSITION, AROUSABLE BE VERBAL STIMULATION, HOB ELEVATED, SIDE RAILS X2 FOR PT SAFETY.
--- NOTE | 2020-01-24 00:05 | NUR ---
PT ATTEMPTING TO PULL OUT NG TUBE AND IV. PT PLACED IN SOFT WRIST RESTRAINTS. CMS+, CAP REFILL <3, NO SKIN BREAKDOWN NOTED. VSS. PT LAYING IN BED, LOCKED AND IN LOWEST POSITION, HOB ELEVATED, SIDE RAILS X2 FOR PT SAFETY.
--- NOTE | 2020-01-24 01:19 | NUR ---
PT SLEEPING IN BED, AROUSABLE BY VERBAL STIMULATION, BED LOCKED AND IN LOWEST POSITION, HOB ELEVATED, SIDE RAILS X2 FOR PT SAFETY. PT VSS. RR EVEN AND UNLABORED.
--- NOTE | 2020-01-24 02:05 | NUR ---
PT RELEASED FROM SOFT WRIST RESTRAINTS. CMS+, CAP REFILL <3, NO SKIN BREAKDOWN NOTED. VSS. PT SLEEPING IN BED, LOCKED AND IN LOWEST POSITION, AROUSABLE BE VERBAL STIMULATION, HOB ELEVATED, SIDE RAILS X2 FOR PT SAFETY.
--- NOTE | 2020-01-24 02:31 | NUR ---
PT PULLED OUT NG TUBE. NEW NG TUBE PLACEMENT NOT TOLERATED . RESIDENT MADE AWARE. PER RESIDENT DO NOT NEED TO PLACE NEW NG TUBE AT THIS TIME.
--- NOTE | 2020-01-24 02:51 | NUR ---
PT RESTING IN BED, LOCKED AND IN LOWEST POSITION, AROUSABLE TO VERBAL STIMULATION, VISIBLE RISE AND FALL OF CHEST, RR EVEN AND UNLABORED, SAO2 94%, VSS, HOB ELEVATED, SIDE RAILS X 2 FOR PT SAFETY.
--- NOTE | 2020-01-24 04:16 | NUR ---
PT RESTING IN BED, LOCKED AND IN LOWEST POSITION, AROUSABLE TO VERBAL STIMULATION, VISIBLE RISE AND FALL OF CHEST, RR EVEN AND UNLABORED, SAO2 95%, VSS, HOB ELEVATED, SIDE RAILS X 2 FOR PT SAFETY.
[2020-01-24 06:51] LABS: BASOPHILS # (AUTO) 0.1 K/uL (0.00-0.22); BASOPHILS % (AUTO) 0.5 % (0.0-2.0); EOSINOPHILS # (AUTO) 0.3 K/uL (0-0.4); EOSINOPHILS % (AUTO) 2.8 % (0.0-4.0); HEMATOCRIT 42.6 % (36-52); HEMOGLOBIN 14.5 g/dL (12.0-18.0); LYMPHOCYTES # (AUTO) 2.4 K/uL (2.0-11.5); LYMPHOCYTES % (AUTO) 23.6 % (20.5-51.1); MEAN CORPUSCULAR HEMOGLOBIN 32 pg (27-31); MEAN CORPUSCULAR HGB CONC 34 g/dL (33-37); MEAN CORPUSCULAR VOLUME 94.9 fL (80-94); MONOCYTES # (AUTO) 1.1 K/uL (0.8-1.0); MONOCYTES % (AUTO) 10.9 % (1.7-9.3); NEUTROPHILS # (AUTO) 6.3 K/uL (1.8-7.7); NEUTROPHILS % (AUTO) 62.2 % (42.2-75.2); PLATELET COUNT (AUTO) 229 K/uL (140-450); RED BLOOD CELL COUNT(AUTO) 4.48 MIL/uL (4.20-6.10); RED CELL DISTRIBUTION WIDTH 13.4 % (11.6-13.7); WHITE BLOOD COUNT (AUTO) 10.1 K/uL (4.8-10.8)
[2020-01-24 07:13] LABS: ANION GAP 7.9 (8-16); CARBON DIOXIDE 29.7 mmol/L (21-32); CREATININE 0.9 mg/dL (0.6-1.3); POTASSIUM 4.6 mmol/L (3.5-5.1)
--- NOTE | 2020-01-24 07:15 | NUR ---
Patient will be admitted to care of DR. SHARMA. Admited to TELEMETRY. Will go to room 131A. Belongings list completed. Report to CRUZ JALLOH.
--- NOTE | 2020-01-24 07:15 | NUR ---
RECEIVED REPORT FROM ER NURSE FOR CONTINUITY OF CARE, PT IS STABLE, PT IS NON-VERBAL, PT HAS LEFT WRIST 22G, PT IS A FALL RISK, BED IN LOW POSITION, SAFETY MEASURES IN PLACE, PT NPO, PT HAS LLE CONTRACTION, SKIN INTACT, INTRODUCE SELF, INTRODUCE PT TO THE ROOM, CALL LIGHT WITHIN REACH, ALL NEEDS MET, WILL CONTINUE TO MONITOR
[2020-01-24 07:34] LABS: PHOSPHORUS 3.4 mg/dL (2.5-4.9)
[2020-01-24 08:00] VITALS: BP 102/67
[2020-01-24] MEDS ORDERED: DOCUSATE SODIUM 250 MG GELCAP PO SCH (09:00)
[2020-01-24] MEDS ORDERED: METOPROLOL 25 MG TAB PO SCH (09:00)
[2020-01-24] MEDS: FUROSEMIDE 40 MG TAB PO SCH (09:00)
[2020-01-24] MEDS ORDERED: PANTOPRAZOLE 40 MG TABEC PO SCH (09:00)
[2020-01-24] MEDS: LORATADINE 10 MG TAB PO SCH (10:00)
[2020-01-24] MEDS: PANTOPRAZOLE 40 MG INJ VIAL IVP SCH (10:00)
[2020-01-24] MEDS: DOCUSATE SODIUM 100 MG GELCAP PO SCH ×2 (10:00→21:14)
--- NOTE | 2020-01-24 10:00 | NUR ---
ADMINISTERED SCHEDULED MEDICATION, MEDICATION EDUCATION GIVEN, PT NON-VERBAL, PT TOLERATED MEDICATION WELL WITH APPLESAUCE, PT IS STABLE, CALL LIGHT WITHIN REACH.
[2020-01-24] MEDS: POLYETHYLENE GLYCOL 17 GM/PKT PO SCH (10:01)
[2020-01-24] MEDS: MULTIVITAMIN 1 TAB PO SCH (10:01)
[2020-01-24] MEDS: diazePAM 5 MG TAB PO SCH ×2 (10:03→21:16)
[2020-01-24 12:00] VITALS: BP 100/64
--- NOTE | 2020-01-24 13:00 | NUR ---
PT SITTING IN BED, NO SIGNS OF DISTRESS NOTED, PT AWAKE, PT IS STABLE
--- NOTE | 2020-01-24 14:00 | NUR ---
PT SITTING IN BED, NO SIGNS OF DISTRESS NOTED, RESPIRATIONS ARE EVEN AND UNLABORED ON ROOM AIR, CALL LIGHT WITHIN REACH.
[2020-01-24] MEDS: NACL 0.9% 1,000 ML IV SCH (14:59)
[2020-01-24] MEDS: DEXT 5% / NACL 0.9% 500 ML IV SCH ×2 (15:14→21:04)
[2020-01-24 16:00] VITALS: BP 104/73
--- NOTE | 2020-01-24 17:00 | NUR ---
PT MOVED TO ROOM 129, PT IS STABLE, NO SIGNS OF DISTRESS NOTED, RESPIRATIONS ARE EVEN AND UNLABORED, CALL LIGHT WITHIN REACH.
--- NOTE | 2020-01-24 19:30 | NUR ---
ENDORSE PT TO NIGHT NURSE FOR CONTINUITY OF CARE, PT IS STABLE
--- NOTE | 2020-01-24 19:31 | NUR ---
RECEIVED REPORT FROM AM SHIFT RN. PATIENT IS LYING IN BED. NO SOB. ON ROOM AIR. NOTED LEFT LOWER QUADRANT COLOSTOMY BAG, INTACT. ON BILATERAL SOFT WRIST RESTRAIN DUE TO PULLING OF LINES/TUBES. ON NPO EXCEPT MEDS. LOWER EXTREMITIES CONTRACTED. ASSESSMENT DONE. TELE MONITOR ATTACHED. DROPLET PRECAUTION IN PLACE. LOW BED IN PLACE. PLAN OF CARE WAS DISCUSSED. CALL LIGHT WITHIN REACH. WILL CONTINUE TO MONITOR.
[2020-01-24 20:00] VITALS: BP 118/69
[2020-01-24] MEDS ORDERED: TAMSULOSIN 0.4 MG CAP PO SCH (21:00)
[2020-01-24] MEDS: TAMSULOSIN 0.4 MG CAP PO SCH (21:15)
--- NOTE | 2020-01-24 21:16 | NUR ---
DUE MEDS GIVEN ORDERED. TOLERATED WELL.
[2020-01-25] VITALS: BP 112/61
--- NOTE | 2020-01-25 03:00 | NUR ---
PATIENT IS NOT IN ANY DISTRESS. WILL CONTINUE TO MONITOR.
[2020-01-25 04:00] VITALS: BP 112/76
[2020-01-25] MEDS: DEXT 5% / NACL 0.9% 500 ML IV SCH ×2 (04:13→11:22)
--- NOTE | 2020-01-25 06:00 | NUR ---
RE-INSERTED A NEW IV LINE TO LAC 22G, ATTEMPTED X2 WITH GOOD BLOOD RETURN. IV SITE AT LEFT WRIST WAS DISLODGED.
--- NOTE | 2020-01-25 07:35 | NUR ---
PATIENT IS IN STABLE CONDITION. ENDORSED TO AM SHIFT RN FOR CONTINUITY OF CARE.
--- NOTE | 2020-01-25 07:40 | NUR ---
SHIFT REPORT RECEIVED FROM WEBSPHERE CONSULTANT NURSE. PT IS RESTING IN BED. IV INTACT. PT IS AWAKE. WILL CONTINUE TO MONITOR. CALL LIGHT IN REACH.
[2020-01-25 08:00] VITALS: BP 110/64
--- NOTE | 2020-01-25 09:36 | NUR ---
PATIENT HAS BEEN SCREENED AND CATEGORIZED MODERATE NUTRITION RISK. PATIENT WILL BE SEEN WITHIN 3-5 DAYS OF ADMISSION. 01/26/20 01/28/[address]
[2020-01-25] MEDS: MULTIVITAMIN 1 TAB PO SCH (10:01)
[2020-01-25] MEDS: PANTOPRAZOLE 40 MG INJ VIAL IVP SCH (10:01)
[2020-01-25] MEDS: FUROSEMIDE 40 MG TAB PO SCH (10:01)
[2020-01-25] MEDS: LORATADINE 10 MG TAB PO SCH (10:02)
[2020-01-25] MEDS: diazePAM 5 MG TAB PO SCH ×2 (10:02→21:08)
[2020-01-25] MEDS: DOCUSATE SODIUM 100 MG GELCAP PO SCH (10:04)
[2020-01-25] MEDS: POLYETHYLENE GLYCOL 17 GM/PKT PO SCH ×4 (10:04→16:03)
--- NOTE | 2020-01-25 10:20 | NUR ---
PT IS IN BED AWAKE. PT IS BEDBOUND. NOTED WITH RESTRAINTS TO BILATERAL HANDS. NO INJURY NOTED. RESTRAINTS REMOVED FOR 15 MINUTES FOR CIRCULATION. PT REFUSED FLUIDS AND MEDICATIONS WITH FLUIDS. PT WAS TAKING TABLETS WITH APPLE SAUCE. O2 SATS AT 94%. IV IN PLACE. WILL CONTINUE TO MONITOR. CALL LIGHT IN REACH.
[2020-01-25 11:39] LABS: ANION GAP 13.8 (8-16); CARBON DIOXIDE 26.4 mmol/L (21-32); CREATININE 0.7 mg/dL (0.6-1.3)
--- NOTE | 2020-01-25 11:39 | NUR ---
GLUE SPRAYER NOTE: Patient's Orientation Unable To Assess Information Provided By [facility] Comments PATIENT HAS NO FAMILY INVOLVED IN HIS CARE. PATIENT ALSO HAS NO CONSERVATOR. PATIENT'S HEALTHCARE DECISION MAKER IS [facility] [phone]. Glass Sander Belt, Realtionship and Phone Number [facility] [facility] [phone] Healthcare Power of Airplane Rigger No Does Patient Have a POLST No Identifying Problems No Social Work Triggers Is A Social Work Consult Needed No Mandate Report Filed No Explanation Of Identifying Problems PTIENT IS A 69-YEAR-OLD MALE ADMITTED FOR GI BLEED. PATIENT HAS PMHX OF CEREBRAL PALSY, DEVELOPMENTAL DELAY, QUADRIPLEGIA, AND GASTROPARESIS. [facility] Pre-Admission Level Of Functioning Status Total Care Prior Resources/Services Used In Last 12 Months No Prior Resources Used Prior DME Wheelchair Home Support No Caregiver Issues Financial Issues No Known Financial Issue Factors/Needs Assist Living/B & C Plcmt Pt/Rep Participated In Discharge Plan Yes Patient/Family Agress With Discharge Plan Yes Discharge Plan Comments TENTATIVE DISCHARGE PLAN IS FOR PATIENT TO RETURN TO [facility]. DC Plan Status Initiated
[2020-01-25 11:56] LABS: POTASSIUM 5.2 mmol/L (3.5-5.1)
[2020-01-25 12:00] VITALS: BP 101/61
[2020-01-25] MEDS ORDERED: CRUSHER, PILL MC ONE (12:13)
[2020-01-25] MEDS ORDERED: DEXT 5% /NACL 0.9% 1,000 ML IV SCH (12:18)
--- NOTE | 2020-01-25 12:20 | NUR ---
PT REFUSED ERYTHROMYCIN AND MIRALAX ORAL MEDS. PT IS REFUSING TO TAKE LIQUID MEDS. O2 SATS 95%. RESTRAINTS CHECKED. NO INJURY NOTED. WILL CONTINUE TO MONITOR. CALL LIGHT IN REACH.
[2020-01-25] MEDS: ERYTHROMYCIN ETHYLSUCCINATE SUSP 200 MG/5 ML UDC PO SCH ×3 (12:28→21:09)
[2020-01-25] MEDS: SENNA 8.6 MG TAB PO SCH ×2 (12:28→16:03)
[2020-01-25 13:32] LABS: BASOPHILS # (AUTO) 0.1 K/uL (0.00-0.22); BASOPHILS % (AUTO) 0.8 % (0.0-2.0); EOSINOPHILS # (AUTO) 0.6 K/uL (0-0.4); EOSINOPHILS % (AUTO) 8.3 % (0.0-4.0); HEMATOCRIT 39.4 % (36-52); HEMOGLOBIN 13.1 g/dL (12.0-18.0); LYMPHOCYTES # (AUTO) 1.4 K/uL (2.0-11.5); LYMPHOCYTES % (AUTO) 21.7 % (20.5-51.1); MEAN CORPUSCULAR HEMOGLOBIN 32 pg (27-31); MEAN CORPUSCULAR HGB CONC 33 g/dL (33-37); MEAN CORPUSCULAR VOLUME 94.8 fL (80-94); MONOCYTES # (AUTO) 0.7 K/uL (0.8-1.0); MONOCYTES % (AUTO) 10.3 % (1.7-9.3); NEUTROPHILS # (AUTO) 3.9 K/uL (1.8-7.7); NEUTROPHILS % (AUTO) 58.9 % (42.2-75.2); PLATELET COUNT (AUTO) 236 K/uL (140-450); RED BLOOD CELL COUNT(AUTO) 4.16 MIL/uL (4.20-6.10); RED CELL DISTRIBUTION WIDTH 13.3 % (11.6-13.7); WHITE BLOOD COUNT (AUTO) 6.7 K/uL (4.8-10.8)
--- NOTE | 2020-01-25 15:19 | NUR ---
PT IS RIGHT LATERAL. O2 SATS AT 94% HR AT 73. RESTRAINS IN PLACE. NO INJURY. WILL CONTINUE TO MONITOR.
[2020-01-25 16:00] VITALS: BP 109/66
[2020-01-25] MEDS ORDERED: NACL 0.9% 1,000 ML IV SCH (17:25)
--- NOTE | 2020-01-25 19:20 | NUR ---
SHIFT REPORT GIVEN TO PM HEAD COOK NURSE FOR CONTINUATION OF CARE. PT IS STABLE AT THE MOMENT. CALL LIGHT IN REACH.
--- NOTE | 2020-01-25 19:21 | NUR ---
RECEIVED REPORT FROM DAYSWIFT NURSE. PT IN BED RESTING WITH HOB ELEVATED. RESPIRATIONS EVEN AND UNLABORED ON ROOM AIR. SKIN IS WARM, DRY, AND INTACT. ABDOMEN IS SOFT AND NON-TENDER WITH COLOSTOMY INTACT. IV ACCESS ON LEFT AC GAUGE [address] IVF INFUSING WELL. NO S/SX OF DISTRESS NOTED AT THIS TIME. PT KEPT COMFORTABLE. SAFETY MEASURES IN PLACE. WILL CONTINUE TO MONITOR.
[2020-01-25 20:00] VITALS: BP 116/61
[2020-01-25] MEDS: TAMSULOSIN 0.4 MG CAP PO SCH (21:07)
--- NOTE | 2020-01-25 21:10 | NUR ---
PT IN BED RESTING WITH HOB ELEVATED. VITAL SIGNS STABLE. SCHEDULED MEDS GIVEN ORDERED. PT UNABLE TO DRINK ALL OF MAGNESIUM CITRATE. MD AWARE. WILL TRY AGAIN LATER. SAFETY MEASURES IN PLACE. WILL CONTINUE TO MONITOR.
[2020-01-25] MEDS ORDERED: MAGNESIUM CITRATE 300 ML BTL PO SCH (22:00)
--- NOTE | 2020-01-25 22:17 | NUR ---
PT IN BED. RESPIRATIONS EVEN AND UNLABORED. NO S/SX OF DISTRESS. FLACC 0. PT KEPT SAFE AND COMFORTABLE. WILL CONTINUE TO MONITOR.
[2020-01-26] VITALS: BP 120/75
--- NOTE | 2020-01-26 00:16 | NUR ---
ROUNDS MADE. VITAL SIGNS STABLE AT THIS TIME. RESPIRATIONS EVEN AND UNLABORED. NO SIGNS OF DISTRESS NOTED. FLACC 0. PT KEPT COMFORTABLE. SAFETY MEASURES IN PLACE. WILL CONTINUE TO MONITOR.
--- NOTE | 2020-01-26 02:08 | NUR ---
PT IN BED SLEEPING. NO S/SX OF DISTRESS NOTED. SAFETY MEASURES IN PLACE. WILL CONTINUE TO MONITOR.
[2020-01-26 04:00] VITALS: BP 112/67
--- NOTE | 2020-01-26 04:00 | NUR ---
ROUNDS MADE. VITAL SIGNS STABLE. PT NOT IN DISTRESS. FLACC 0. COLOSTOMY BAG FILLED WITH AIR. COLOSTOMY EMPTIED. PT KEPT COMFORTABLE. SAFETY MEASURES IN PLACE. WILL CONTINUE TO MONITOR.
--- NOTE | 2020-01-26 06:18 | NUR ---
PT ASLEEP. PT NOT IN DISTRESS. PT KEPT COMFORTABLE. SAFETY MEASURES IN PLACE. WILL CONTINUE TO MONITOR.
[2020-01-26 06:44] LABS: ANION GAP 13.4 (8-16); CARBON DIOXIDE 27.3 mmol/L (21-32); CREATININE 0.8 mg/dL (0.6-1.3); POTASSIUM 3.7 mmol/L (3.5-5.1)
[2020-01-26 06:58] LABS: MAGNESIUM 1.9 mg/dL (1.8-2.4); PHOSPHORUS 3.1 mg/dL (2.5-4.9)
[2020-01-26 07:02] LABS: HEMATOCRIT 37.9 % (36-52); MEAN CORPUSCULAR HEMOGLOBIN 32 pg (27-31); MEAN CORPUSCULAR HGB CONC 34 g/dL (33-37); MEAN CORPUSCULAR VOLUME 93.6 fL (80-94); PLATELET COUNT (AUTO) 160 K/uL (140-450); RED BLOOD CELL COUNT(AUTO) 4.05 MIL/uL (4.20-6.10); RED CELL DISTRIBUTION WIDTH 12.8 % (11.6-13.7); WHITE BLOOD COUNT (AUTO) 8.8 K/uL (4.8-10.8)
--- NOTE | 2020-01-26 07:10 | NUR ---
ENDORSED TO DAY SHIFT NURSE FOR CONTINUITY OF CARE. PT IS IN STABLE CONDITION.
[2020-01-26 08:00] VITALS: BP 138/71
[2020-01-26 08:43] LABS: EOSINOPHILS % (MANUAL) 7 % (0-4); LYMPHOCYTES % (MANUAL) 21 % (20-46); MONOCYTES % (MANUAL) 3 % (5-12)
[2020-01-26] MEDS: POLYETHYLENE GLYCOL 17 GM/PKT PO SCH ×2 (09:11→12:35)
[2020-01-26] MEDS: PANTOPRAZOLE 40 MG INJ VIAL IVP SCH (09:11)
[2020-01-26] MEDS: SENNA 8.6 MG TAB PO SCH ×2 (09:12→12:35)
[2020-01-26] MEDS: MULTIVITAMIN 1 TAB PO SCH (09:12)
[2020-01-26] MEDS: diazePAM 5 MG TAB PO SCH (09:12)
[2020-01-26] MEDS: ERYTHROMYCIN ETHYLSUCCINATE SUSP 200 MG/5 ML UDC PO SCH ×2 (09:20→12:36)
[2020-01-26] MEDS ORDERED: SENN-74 PO (11:15)
[2020-01-26] MEDS ORDERED: ERYT200P5 PO (11:15)
[2020-01-26 12:00] VITALS: BP 104/62
--- NOTE | 2020-01-26 12:09 | NUR ---
SPOKE TO CHON AT [facility] [phone] TO NOTIFY HER THAT PATIENT WILL BE DISCHARGED TODAY SHE PROVIDED ME WITH [place]'S TELEPHONE NUMBER TO CONTACT TO PROVIDE TRANSPORTATION [phone]. [place] ASK FOR 30 MINS IN [facility] FOR ADJUSTMENT SUPERVISOR. RECEIVED D/C ORDER FROM DR. POE THAT PATIENT MUST HAVE A BOWEL MOVEMENT BEFORE DISCHARGE. WILL FOLLOW UP WITH NURSE TO NOTIFY ME WHEN PATIENT HAS HAD A BOWEL MOVEMENT Addendum: 01/26/20 at 1339 by Cookie Barragan CM FOLLOWED UP WITH CHARGE NURSE ON UPDATE ON PATIENT. WE ARE WAITING FOR THE DOCTOR RO SEE THE PATIENT Addendum: 01/26/20 at 1703 by Cookie Barragan CM SPOKE WITH CHON TO VERIFY PATIENT IS ABLE TO DISCHARGE BACK SHE SAID YES AND THAT SHE WILL SEND [place] AN EMAIL. SPOKE TO [place] REGARDING TRANSPORTATION. TRANSPORTATION WILL BE HERE BY 6:00 PM TO ADJUSTMENT SUPERVISOR PATIENT. Addendum: 01/26/20 at 1705 by Cookie Barragan CM ANTOINETTE [employer] # [phone].
--- NOTE | 2020-01-26 14:00 | NUR ---
SEEN BY DR. Emmett VALVERDE, WITH ORDER TO GIVE MAG CITRATE. AND ADVANCE DIET TO PUREE. WILL CONTINUE TO MONITOR.
[2020-01-26] MEDS ORDERED: MAGNESIUM CITRATE 300 ML BTL PO SCH (14:30)
--- NOTE | 2020-01-26 18:00 | NUR ---
PATIENT HAD BM ON HIS COLOSTOMY, WATERY, MODERATE IN AMOUNT. CALLED DR. RILEY AND MADE AWARE.
--- NOTE | 2020-01-26 18:30 | NUR ---
MEAT INSPECTOR IS HERE FOR THE PATIENT .PATIENT STABLE. DISCHARGE PAPER AND INSTRUCTION GIVEN TO THE CAREGIVER AND VERBALIZED UNDERSTANDING.
== END 2020-01-26 18:15 | disposition home or self-care (01) | DRG 377 ==
LOC: MED 14:55 → MMU 17:26 → EEVIPCON 17:26 → MMU 01-24 05:40 → MTU 01-26 03:18
PROVIDERS: ADMIT General Practice; ATTEND General Practice
DX: K92.2 Gastrointestinal hemorrhage, unspecified (principal); R53.2 Functional quadriplegia; E44.0 Moderate protein-calorie malnutrition; F72 Severe intellectual disabilities; K22.70 Barrett's esophagus without dysplasia; Z68.33 Body mass index [BMI] 33.0-33.9, adult; K21.9 Gastro-esophageal reflux disease without esophagitis; K59.00 Constipation, unspecified; G80.9 Cerebral palsy, unspecified; I50.9 Heart failure, unspecified; I11.0 Hypertensive heart disease with heart failure; N40.0 Benign prostatic hyperplasia without lower urinary tract symptoms; E87.5 Hyperkalemia; Z20.828 Contact with and (suspected) exposure to other viral communicable diseases; Z93.3 Colostomy status; Z88.5 Allergy status to narcotic agent
CPT/HCPCS: 36415; 71045; 74018; 80048; 80053; 81003; 82150; 83036; 83605; 83690; 83735; 83880; 84100; 84439; 84443; 84484; 85025; 85610; 85730; 87040; 87081; 93005; 96365; 96367; 96375; 99285; C9113; J0696; J2405; J3490; J7030; Q0092; U0003-CS

== ENCOUNTER 2021-01-22 14:55 | Inpatient (IN) | payer OTHER, MEDICAID ==
[~2021-01-22] VITALS: Ht 162.6 cm; Wt 70.8 kg
[~2021-01-22 14:55] MED LIST changes: +ERYT200P5 PO; -LACT10SO1 PO; -MAGN296S PO; -MIRABULK PO; +MULT-1868 PO; -MULT15LI1 PO; +POTA20TE15 PO; -SENN-167 PO; +SENN-74 PO
--- NOTE | 2021-01-22 14:55 | NUR ---
Patient MINNA CHARLES from [facility], transferred to bed 4. RN evaluating the patient at bedside.
--- NOTE | 2021-01-22 15:04 | NUR ---
Caregiver at bedside.
[2021-01-22 15:07] VITALS: BP 105/59
--- NOTE | 2021-01-22 15:08 | NUR ---
Dr. Ballesteros is evaluating the patient at bedside.
--- NOTE | 2021-01-22 15:13 | NUR ---
70/M biba from [facility] with c/o fall. Per EMS, patient was placed in [facility] at 0600 from which staff states patient fell out of. health companion at bedside, states unknown if patient hit head or had LOC. Per EMS patient had episodes of vomiting prior to arrival to ED, EMS states staff said patient is "complaining of right leg pain." Patient nonverbal, nonambulatory at baseline. Placed on bedside monitor worker, pulse 114, respirations 11, O2 95%, blood pressure 105/59.
[2021-01-22] MEDS ORDERED: ONDANSETRON 4 MG/2 ML VIAL ONE (15:28)
--- NOTE | 2021-01-22 15:36 | NUR ---
Patient taken to CT via jose
--- NOTE | 2021-01-22 15:42 | NUR ---
Per certified medical technician assistant patient not staying still for CT exam, patient returned to bed 4
[2021-01-22] MEDS ORDERED: ONDANSETRON 4 MG/2 ML VIAL IVP ONE (15:45)
[2021-01-22] MEDS ORDERED: NACL 0.9% 1,000 ML IV ONE (15:45)
[2021-01-22] MEDS ORDERED: LORazepam 2 MG/ML VIAL IVP ONE (16:00)
[2021-01-22] MEDS ORDERED: LORazepam 2 MG/ML VIAL ONE (16:03)
[2021-01-22 16:19] LABS: BASOPHILS % (AUTO) 0.1 % (0.0-2.0); EOSINOPHILS % (AUTO) 0.1 % (0.0-4.0); HEMOGLOBIN 14.8 g/dL (12.0-18.0); LYMPHOCYTES # (AUTO) 0.9 K/uL (2.0-11.5); LYMPHOCYTES % (AUTO) 5.4 % (20.5-51.1); MEAN CORPUSCULAR HEMOGLOBIN 32 pg (27-31); MEAN CORPUSCULAR HGB CONC 34 g/dL (33-37); MEAN CORPUSCULAR VOLUME 93.6 fL (80-94); MONOCYTES # (AUTO) 1.3 K/uL (0.8-1.0); MONOCYTES % (AUTO) 7.7 % (1.7-9.3); NEUTROPHILS # (AUTO) 14.9 K/uL (1.8-7.7); PLATELET COUNT (AUTO) 317 K/uL (140-450); RED BLOOD CELL COUNT(AUTO) 4.71 MIL/uL (4.20-6.10); RED CELL DISTRIBUTION WIDTH 13.1 % (11.6-13.7); WHITE BLOOD COUNT (AUTO) 17.2 K/uL (4.8-10.8)
[2021-01-22 16:35] LABS: ANION GAP 18.1 (8-16); CARBON DIOXIDE 24.1 mmol/L (21-32); CREATININE 1.6 mg/dL (0.6-1.3); POTASSIUM 4.2 mmol/L (3.5-5.1)
--- NOTE | 2021-01-22 16:35 | NUR ---
Patient taken to CT scan/x-ray via gurney by [employer].
[2021-01-22 16:42] LABS: NEUTROPHILS % (AUTO) 86.7 % (42.2-75.2)
--- NOTE | 2021-01-22 17:00 | NUR ---
Patient returned from CT scan. RN reevaluating the patient at bedside.
--- NOTE | 2021-01-22 17:42 | NUR ---
x-ray at bedside
--- NOTE | 2021-01-22 18:29 | NUR ---
forensic technician at bedside.
--- NOTE | 2021-01-22 19:06 | NUR ---
Gloria swab collected and walked to lab
--- NOTE | 2021-01-22 19:07 | NUR ---
REPORT RECEIVED FROM CRUZ CORTEZ. TRANSFER OF CARE AT THIS TIME.
--- NOTE | 2021-01-22 19:07 | NUR ---
Pt report given to Raquel. Transfer of care at this time.
--- NOTE | 2021-01-22 19:15 | NUR ---
PT IS SITTING UP IN BED WITH ADMINISTRATIVE RESOURCES ASSOCIATE AT BEDESIDE. EQUAL AND UNLABORED BREATHING. NO S/SX OF PAIN OR DISCOMFORT. ALL NEEDS TAKEN CARE OF AT THIS TIME. SIDE RAIL X2, BED LOCKED IN LOWEST POSITION.
--- NOTE | 2021-01-22 19:20 | NUR ---
MACI COLLECTED AND TAKEN TO LAB BY CRUZ CORTEZ.
--- NOTE | 2021-01-22 19:27 | NUR ---
PHOEBE FLORES AT BEDSIDE.
--- NOTE | 2021-01-22 20:05 | NUR ---
REPORT GIVEN TO CRUZ PADRON. TRANSFER OF CARE AT THIS TIME.
--- NOTE | 2021-01-22 20:15 | NUR ---
ADMITTED 70/M, ON ROOM AIR, AOX1 TO NAME, HX OF CEREBRAL PALSY, NON VERBAL, FLACC 0, NO SOB, NO DISTRESS, HOB ELEVATED, IVF INFUSED, TOLERATED WELL, SAFETY MEASURES IN PLACE, V/S TAKEN 106/70, HR 108, 99.3, 92% ON ROOM AIR, 18. WILL MONITOR, CALL LIGHT WITHIN REACH. KEPT COMFORTABLE.
--- NOTE | 2021-01-22 20:15 | NUR ---
Patient will be admitted to care of [facility]. Admited to [facility]. Will go to room 105A. Belongings list completed. Report to CRUZ PADRON.
[2021-01-22] MEDS: DEXT 5% / NACL 0.45% 1,000 ML IV SCH (21:01)
[2021-01-22] MEDS: ONDANSETRON 4 MG/2 ML VIAL IVP PRN (21:59)
--- NOTE | 2021-01-22 22:02 | NUR ---
GAVE ZOFRAN 4MG IVP FOR VOMITING, WILL MONITOR, CALL LIGHT WITHIN REACH.
[2021-01-22] MEDS ORDERED: ACETAMINOPHEN 325 MG TAB PO PRN (22:25)
[2021-01-22] MEDS ORDERED: ONDANSETRON 4 MG/2 ML VIAL IVP PRN (22:25)
[2021-01-22] MEDS ORDERED: LORazepam 2 MG/ML VIAL IVP PRN (22:25)
[2021-01-23] VITALS: BP 90/59
--- NOTE | 2021-01-23 01:45 | NUR ---
INFORMED DR. JIMENES THAT PATIENT VOMITED AGAIN, COFFEE GROUND, BP 90/59, HR 112. DR. JIMENES ORDERED ABDOMINAL SERIES AND NGT TO INTERMITTENT SUCTION. NPO FOR NOW, SAID TO INSERT NGT FIRST THEN GET THE ABDOMINAL SERIES TO CHECK FOR SBO AND PLACEMENT, NOTED AND CARRIED OUT. WILL CLOSELY MONITOR PT.
[2021-01-23] MEDS: ONDANSETRON 4 MG/2 ML VIAL IVP PRN (02:11)
--- NOTE | 2021-01-23 02:11 | NUR ---
ZOFRAN IVP GIVEN FOR N/V ORDERED.
--- NOTE | 2021-01-23 02:30 | NUR ---
MY CHARGE NURSE IS HELPING TO INSERT AN NGT. PATIENT IS RESISTING THE INSERTION.
--- NOTE | 2021-01-23 03:00 | NUR ---
NGT INSERTED TO RT NARES, FR 16. CHECKED PLACEMENT, AUSCULTATED, ABDOMINAL SERIES TO CHECK PLACEMENT WAS DONE.
--- NOTE | 2021-01-23 03:45 | NUR ---
BP 64/45, HR 119, O2 SAT 91% ON ROOM AIR, INFORMED DR. JIMENES, HE ORDERED, NS 1L BOLUS, MONITOR IF NOT IMPROVED SEND TO ICU AND START LEVOPHED. NOTED AND CARRIED OUT. WILL CLOSELY MONITOR.
[2021-01-23 04:00] VITALS: BP 104/59
[2021-01-23] MEDS ORDERED: NACL 0.9% 1,000 ML IV SCH (04:20)
--- NOTE | 2021-01-23 04:40 | NUR ---
BP 95/60 HR 101, WILL CLOSELY MONITOR PATIENT, CALL LIGHT WITHIN REACH.
[2021-01-23] MEDS: DEXT 5% / NACL 0.45% 1,000 ML IV SCH ×2 (04:54→15:30)
--- NOTE | 2021-01-23 05:15 | NUR ---
PATIENT'S SBP GOES UP GRADUALLY UP TO 110. PT IS AROUSABLE TO VERBAL STIMULI. NO DISTRESS. CALL LIGHT WITHIN REACH.
--- NOTE | 2021-01-23 06:50 | NUR ---
NO DISTRESS, CONTINUE ON INTERMITTENT SUCTION, WILL CONTINUE TO MONITOR.
[2021-01-23 07:04] LABS: HEMATOCRIT 32.3 % (36-52); HEMOGLOBIN 10.9 g/dL (12.0-18.0); MEAN CORPUSCULAR HEMOGLOBIN 32 pg (27-31); MEAN CORPUSCULAR HGB CONC 34 g/dL (33-37); MEAN CORPUSCULAR VOLUME 93.9 fL (80-94); PLATELET COUNT (AUTO) 253 K/uL (140-450); RED BLOOD CELL COUNT(AUTO) 3.44 MIL/uL (4.20-6.10); RED CELL DISTRIBUTION WIDTH 13.3 % (11.6-13.7)
[2021-01-23 07:08] LABS: ALBUMIN 2.7 g/dL (3.4-5.0); ANION GAP 15.7 (8-16); CARBON DIOXIDE 21.9 mmol/L (21-32); CREATININE 1.5 mg/dL (0.6-1.3); MAGNESIUM 2.3 mg/dL (1.8-2.4); PHOSPHORUS 3.7 mg/dL (2.5-4.9); POTASSIUM 3.6 mmol/L (3.5-5.1); TOTAL BILIRUBIN 0.4 mg/dL (0.0-1.0)
--- NOTE | 2021-01-23 07:23 | NUR ---
PATIENT HAS BEEN SCREENED AND CATEGORIZED LOW NUTRITION RISK. PATIENT WILL BE SEEN WITHIN 7 DAYS OF ADMISSION. 01/30/21 EDYTA PATTERSON MS, RDN
--- NOTE | 2021-01-23 07:27 | NUR ---
PT STABLE, NO DISTRESS, KEPT COMFORTABLE, BEDSIDE ENDORSEMENT GIVEN TO AM SHIFT RN FOR CONTINUITY OF CARE.
--- NOTE | 2021-01-23 07:28 | NUR ---
RECEIVED BEDSIDE REPORT FROM CONSUMER SAFETY OFFICER NURSE VITO FOR CONTINUITY OF CARE. PATIENT AWAKE, APHASIC, UNABLE TO FOLLOW COMMAND, NOR ABLE TO MAKE NEEDS KNOWN, ALERT ORIENTED X1 TO NAME. RESPIRATION EVEN, UNLABORED ON ROOM AIR, SPO2 AT 92% AT THIS TIME. BP TAKEN 95/56 PULSE 97. NO SIGNS OF ACUTE DISTRESS NOTED. IV ON L FOOT 22G, CLEAN AND INTACT, WARP AROUND WITH KERLIX, RUNNING IVF D5 NS0.45 AT 100 ML/HR AT THIS TIME. NGT IN PLACE, CONNECTED TO LOWER INTERMITTENT SUCTIONING, BLACK LIQUID SEEN IN CANISTER. PATIENT IS INCONTINENT, COLOSTOMY IN PLACE. PATIENT IS RIGID ON LOWER EXTREMITY, BUT ARMS ARE ABLE TO MOVE AROUND, AND BED BOUND. L HAND MITTEN IN PLACE, NO SIGNS OF INJURY NOTED. NPO IN PLACE. SAFETY MEASURES IN PLACE. BED IN LOW POSITION, CALL LIGHT WITHIN REACH. FALL RISK PROTOCOL IN PLACE.
[2021-01-23 07:33] LABS: LYMPHOCYTES % (MANUAL) 3 % (20-46); MONOCYTES % (MANUAL) 9 % (5-12)
--- NOTE | 2021-01-23 07:50 | NUR ---
RECEIVED LACTIC ACID CRITICAL LAB 4.9, NOT REPORTED, TREND DOWN FROM PREVIOUS LAB.
[2021-01-23 08:00] VITALS: BP 105/60
[2021-01-23] MEDS ORDERED: CLINICAL MONITORING MC PRN (08:20)
[2021-01-23] MEDS ORDERED: POTASSIUM CHLORIDE 20 MEQ PO SCH (09:00)
[2021-01-23] MEDS ORDERED: NON-FORMULARY ITEM (Multivitamin with Minerals (Multivitamins with Minerals) 1 TAB) PO SCH (09:00)
[2021-01-23] MEDS ORDERED: FUROSEMIDE 40 MG TAB PO SCH (09:00)
[2021-01-23] MEDS: POTASSIUM CHLORIDE 10 MEQ TABER PO SCH (09:53)
[2021-01-23] MEDS: DOCUSATE SODIUM 250 MG GELCAP PO SCH ×2 (09:54→21:00)
[2021-01-23] MEDS: SENNA 8.6 MG TAB PO SCH ×3 (09:54→16:46)
[2021-01-23] MEDS: diazePAM 5 MG TAB PO SCH ×2 (09:54→21:00)
[2021-01-23] MEDS: MULTIVITAMIN/MINERALS 1 TAB PO SCH (09:54)
[2021-01-23] MEDS: METOPROLOL 25 MG TAB PO SCH ×2 (09:55→21:00)
[2021-01-23] MEDS: LORATADINE 10 MG TAB PO SCH (09:55)
[2021-01-23] MEDS: ERYTHROMYCIN 0.5% OPTH OINT 1 GM TUBE BOTH EYES SCH ×4 (09:56→21:00)
[2021-01-23] MEDS: POLYETHYLENE GLYCOL 17 GM/PKT PO SCH (09:56)
[2021-01-23] MEDS: PANTOPRAZOLE 40 MG TABEC PO SCH (09:56)
--- NOTE | 2021-01-23 10:05 | NUR ---
BP CHECKED PRIOR TO MEDS ADMINISTER, BP 124/57 PULSE 101 SPO2 93% ON ROOM AIR. ADMINISTERED SCHEDULED MEDS VIA NGT, FLUSHED BEFORE AND AFTER MEDS, WILL HOLD INTERMITTENT SUCTIONING FOR 1 HOUR. PATIENT AWAKE, MOVING AROUND ON BED,FLACC 0. NO SIGNS OF ACUTE DISTRESS NOTED. SAFETY MEASURES IN PLACE. BED IN LOW POSITION, AND BED ALARM ACTIVATED.
[2021-01-23 12:00] VITALS: BP 112/58
[2021-01-23] MEDS: PIPERACILLIN/TAZOBACTAM 2.25 GM in DEXTROSE 5% 50 ML IV SCH ×2 (12:21→18:14)
--- NOTE | 2021-01-23 12:22 | NUR ---
SCHEDULED ZOSYN ADMINISTERED PER MD ORDER. PATIENT AWAKE AND MOVING AROUND ON BED. FLACC 0. RESPIRATION EVEN, UNLABORED, ON ROOM AIR. NGT CONTINUE CONNECTING TO LOWER INTERMITTENT SUCTIONING. NO SIGNS OF ACUTE DISTRESS NOTED. SAFETY MEASURES IN PLACE.
--- NOTE | 2021-01-23 13:13 | NUR ---
SCHEDULED MEDS GIVEN. ORAL CARE PROVIDED. PATIENT AWAKE AND RESTING ON BED AT THIS TIME. NO SIGNS OF ACUTE DISTRESS NOTED. SAFETY MEASURES IN PLACE.
[2021-01-23 16:00] VITALS: BP 105/55
--- NOTE | 2021-01-23 16:46 | NUR ---
ADMINISTERED SCHEDULE MED PER MD ORDER VIA NGT, FLUSHED BEFORE AND AFTER MED. PATIENT AWAKE AND RESTING ON BED. NO SIGNS OF ACUTE DISTRESS NOTED. SAFETY MEASURES IN PLACE.
--- NOTE | 2021-01-23 18:14 | NUR ---
SCHEDULED ZOSYN ADMINISTER. PATIENT AWAKE AND RESTING ON BED. NGT IN LOWER INTERMITTER SUCTIONING. NO SIGNS OF ACUTE DISTRESS NOTED. SAFETY MEASURES IN PLACE.
--- NOTE | 2021-01-23 18:35 | NUR ---
FOUND REMOVED MITTEN AND PATIENT PULLED OUT NGT, WILL REINSERT ANOTHER ONE.
--- NOTE | 2021-01-23 18:58 | NUR ---
NGT PLACED IN R NARE, AWAITING FOR CXR TO CONFIRM PLACEMENT.
--- NOTE | 2021-01-23 19:28 | NUR ---
ENDORSED PATIENT TO LAST INSERTER NURSE ALEX FOR CONTINUITY OF CARE. CXR TECH IS AT BEDSIDE AND GOING TO TAKE CXR TO CONFIRM NGT PLACEMENT. ENDORSED TO COLLECT URINE AND OCCULT BLOOD SAMPLES, PATIENT IS NPO AND WILL CONTINUE LOWER INTERMITTENT SUCTIONING ONCE NGT PLACEMENT CONFIRM. PATIENT IS IN STABLE CONDITION.
--- NOTE | 2021-01-23 19:30 | NUR ---
RECEIVED REPORT FROM CRUZ LYN AT BEDSIDE FOR CONTINUITY OF CARE, PT IN STABLE CONDITION. PT SITING UP IN BED 90 DEGREES. AOX1, OPENS EYES SPONTANEOUSLY. NG TUBE INSERTED, AWAITING STAT CXR FOR PLACEMENT. X RAY TECHNICIANS AT BEDSIDE. PT 02 WAS 90% PLACED ON 2 LITERS N/C. PT ALSO HAS A LEFT HAND MITT DUE TO PT PULLING OUT NG TUBE. NO INJURY NOTED SKIN CIRCULATION OK. PT HAS IV SITE IN LEFT FOOT 22G RUNNING D51/2 NS AT 100MLS/HR. ALL FALLS AND ASPIRATION PRECAUTIONS IN PLACE.
[2021-01-23 20:00] VITALS: BP 110/51
--- NOTE | 2021-01-23 20:15 | NUR ---
PT SITING UP IN BED AOX1 HE OPENS EYES SPONTANEOUSLY. CXR RESULTS OK TO USE NG TUBE, PT HOOKED UP TO INTERMITTENT NG SUCTIONING. N/C RUNNING AT 2 LITERS N/C. IV SITE INTACT ON LEFT FOOT 22G AND RUNNING D5 1/2 NS AT 100MLS/HR. V/S FOLLOWS: T 100.2 P 90 R 20 B/P 110/51 02 100% 2 LITERS VIA N/C ( PT IS STATING 90% ON ROOM AIR). ALL ASPIRATIONS AND FALLS PRECAUTIONS IN PLACE.
[2021-01-23] MEDS: TAMSULOSIN 0.4 MG CAP PO SCH (21:00)
--- NOTE | 2021-01-23 21:30 | NUR ---
PT GIVEN COOLING MEASURES FOR INCREASED TEMPERATURE. HE WAS ALSO GIVEN ORDERED EYE CREAM. PT LOPRESSOR WAS HELD DUE TO LOW B/P (110/51). VALIUM HELD DUE TO PT BEING CALM. FLOMAX AND COLACE HELD DUE TO PT HAVING FREQUENT AND LARGE VOIDS, PT ALSO HAD SOFT BM VIA COLOSTOMY BAG. COLACE HELD. PT CONTINUES ON INTERMITTED SUCTION. HEAD OF BED ELEVATED PRE ASPIRATION CAUTIONS. WILL SPEAK WITH MD FOR ORDER FOR PO/PRN SUPPOSITORY. IV RUNNING ORDERED. NG TUBE REMAINS IN PLACE AND PT CONTINUES ON 2 LITERS VIA N/C. ALL ORDERED PRECAUTIONS IN PLACE.
--- NOTE | 2021-01-23 22:00 | NUR ---
PT WAS TURNED, CHANGED AND REPOSITIONED IN BED. RETAKE OF TEMPERATURE IS 97.7. MD SAID OK TO ORDER TYLENOL SUPPOSITORY FOR FEVER AND MILD PAIN. MD ALSO GAVE ORDER REQUESTED ORDER FOR STRAIGHT CATHETER TO OBTAIN URINALYSIS. ALL ORDERED PRECAUTIONS IN PLACE.
--- NOTE | 2021-01-23 23:00 | NUR ---
URINE SAMPLE OBTAINED VIA STRAIGHT CATHETERIZATION. PT WAS ALSO TURNED, CHANGED AND REPOSITIONED IN BED. INTERMITTED SUCTION CONTINUES VIA NG TUBE. PT HAD BM VIA COLOSTOMY AND STOOL OCCULT SAMPLE TAKEN. D5 AND 1/2 RUNNING ORDERED, PT CONTINUES ON 2 LITERS VIA N/C. ALL ORDERED PRECAUTIONS IN PLACE.
[2021-01-23] MEDS ORDERED: ACETAMINOPHEN 650 MG SUPP RC PRN (23:15)
[2021-01-24] VITALS: BP 112/62
--- NOTE | 2021-01-24 00:35 | NUR ---
PT TURNED AND REPOSITIONED IN BED. LEFT HAND RELEASED AND INSPECTED, SKIN INTACT, NO S/S OF INJURY NOTED, CIRCULATION GOOD. ALL ORDERED PRECAUTIONS IN PLACE.
[2021-01-24] MEDS: PIPERACILLIN/TAZOBACTAM 2.25 GM in DEXTROSE 5% 50 ML IV SCH ×4 (01:35→17:51)
--- NOTE | 2021-01-24 02:00 | NUR ---
PT IN BED ASLEEP , LEFT MITT RELEASED NO S/S OF INJURY CIRCULATION GOOD. HOB ELEVATED FLUIDS RUNNING ORDERED. ALL ORDERED PRECAUTIONS IN PLACE.
[2021-01-24 03:13] LABS: APPEARANCE,URINE SL CLOUDY (CLEAR); BILIRUBIN,URINE NEGATIVE (NEGATIVE); BLOOD, URINE NEGATIVE (NEGATIVE); COLOR,URINE YELLOW (YELLOW); LEUKOCYTE ESTERASE ,URINE NEGATIVE (NEGATIVE); NITRITE, URINE NEGATIVE (NEGATIVE); PH,URINE 5.5 (5.0-9.0); UGLUCOSE 2+ (NEGATIVE)
--- NOTE | 2021-01-24 04:45 | NUR ---
PT TURNED AND REPOSITIONED IN BED FLUIDS RUNNING ORDERED V/S FOLLOWS: T 98.4 P 81 R 20 B/P 107/61 02 92% ON ROOM AIR. ORAL CARE PROVIDED. ALL ORDERED PRECAUTIONS IN PLACE.
--- NOTE | 2021-01-24 06:00 | NUR ---
ZAN HUNG AND RUNNING ORDERED. ALL ORDERED PRECAUTIONS IN PLACE.
[2021-01-24] MEDS: DEXT 5% / NACL 0.45% 1,000 ML IV SCH (06:29)
[2021-01-24 07:09] LABS: BASOPHILS % (AUTO) 0.1 % (0.0-2.0); HEMOGLOBIN 9.1 g/dL (12.0-18.0); LYMPHOCYTES # (AUTO) 1.3 K/uL (2.0-11.5); MEAN CORPUSCULAR HEMOGLOBIN 32 pg (27-31); MEAN CORPUSCULAR HGB CONC 34 g/dL (33-37); MEAN CORPUSCULAR VOLUME 93.3 fL (80-94); MONOCYTES # (AUTO) 2.5 K/uL (0.8-1.0); NEUTROPHILS # (AUTO) 15.3 K/uL (1.8-7.7); NEUTROPHILS % (AUTO) 79.9 % (42.2-75.2); PLATELET COUNT (AUTO) 183 K/uL (140-450); RED BLOOD CELL COUNT(AUTO) 2.89 MIL/uL (4.20-6.10); RED CELL DISTRIBUTION WIDTH 13.6 % (11.6-13.7); WHITE BLOOD COUNT (AUTO) 19.1 K/uL (4.8-10.8)
--- NOTE | 2021-01-24 07:16 | NUR ---
PT ENDORSED BY COMMUNICATIONS ASSOCIATE NURSE FOR CONTINUITY OF CARE, POC DISCUSSED. PT IS ASLEEP IN BED WITH NO SIGNS OF ACUTE DISTRESS. PT IS ON 2 L NC WITH NG TUBE HOOKED UP TO INTERMITTENT SUCTION, WITH 900 ML OUTPUT. PT HAS AN COLOSTOMY BAG THAT IS INTACT. PT HAS A LEFT FOOT 22GAUGE RUNNING D5 0.045 NS AT 100 ML/ HR. ALL SAFETY MEASURES IN PLACE, CALL LIGHT WITHIN REACH. WILL CONTINUE TO MONITOR.
[2021-01-24 07:21] LABS: ANION GAP 10.9 (8-16); CARBON DIOXIDE 27.4 mmol/L (21-32); CREATININE 1.7 mg/dL (0.6-1.3); POTASSIUM 4.3 mmol/L (3.5-5.1)
[2021-01-24 08:00] VITALS: BP 101/57
[2021-01-24] MEDS: ERYTHROMYCIN 0.5% OPTH OINT 1 GM TUBE BOTH EYES SCH ×4 (08:38→21:57)
[2021-01-24] MEDS: POTASSIUM CHLORIDE 10 MEQ TABER PO SCH (08:38)
[2021-01-24] MEDS: DOCUSATE SODIUM 250 MG GELCAP PO SCH (08:38)
[2021-01-24] MEDS: POLYETHYLENE GLYCOL 17 GM/PKT PO SCH ×4 (08:38→16:36)
[2021-01-24] MEDS: LORATADINE 10 MG TAB PO SCH (08:38)
[2021-01-24] MEDS: diazePAM 5 MG TAB PO SCH ×2 (08:38→21:38)
[2021-01-24] MEDS: METOPROLOL 25 MG TAB PO SCH ×2 (08:38→21:00)
[2021-01-24] MEDS: SENNA 8.6 MG TAB PO SCH ×3 (08:38→16:36)
[2021-01-24] MEDS: PANTOPRAZOLE 40 MG TABEC PO SCH (08:38)
[2021-01-24] MEDS: MULTIVITAMIN/MINERALS 1 TAB PO SCH (08:38)
[2021-01-24] MEDS ORDERED: NACL 0.9% 1,000 ML IV SCH (08:40)
--- NOTE | 2021-01-24 08:40 | NUR ---
SCHEDULED MEDICATION ADMINISTERED THROUGH NGT. PT TOLERATED ADMINISTRATION. ALL SAFETY MEASURES IN PLACE, CALL LIGHT WITHIN REACH. WILL CONTINUE TO MONITOR.
[2021-01-24] MEDS ORDERED: MAGNESIUM CITRATE 300 ML BTL PO SCH (09:30)
[2021-01-24] MEDS: DEXT 5% / NACL 0.2% 1,000 ML IV SCH ×2 (09:30→19:30)
--- NOTE | 2021-01-24 09:54 | NUR ---
MEDICATION ADMINISTRATION PER MD ORDER. PT TOLERATED ADMINISTRATION, ALL SAFETY MEASURES IN PLACE, CALL LIGHT WITHIN REACH. WILL CONTINUE TO MONITOR.
--- NOTE | 2021-01-24 11:06 | NUR ---
PT COLOSTOMY BAG CLEANED OUT. ORAL CARE PREFORMED. PT TOLERATED CLEANING. WILL CONTINUE TO MONITOR. ALL SAFETY MEASURES IN PLACE.
--- NOTE | 2021-01-24 11:21 | NUR ---
NGT CLAMPED PER MD ORDER. PT LEFT FOOT IV IS PATENT AND RUNNING D5 0.045 NS AT 100 ML. ALL SAFETY MEASURES IN PLACE, CALL LIGHT WITHIN REACH.. WILL CONTINUE TO MONITOR.
--- NOTE | 2021-01-24 13:01 | NUR ---
PT COLOSTOMY BAG CLEANED, 25 ML OUTPUT. PT IS RESTING IN BED WITH NO SIGNS OF ACUTE DISTRESS.
[2021-01-24] MEDS: METOCLOPRAMIDE 10 MG/2 ML INJ VIAL IVP SCH ×3 (13:58→22:17)
--- NOTE | 2021-01-24 14:04 | NUR ---
PAULINO MEDICATION ADMINISTERED THROUGH NGT, FLUSHED PRIOR AND AFTER ADMINISTRATION. PT TOLERATED ADMINISTRATION. PT VITAL SIGNS WNL. PT REPOSITIONED AND CLEANED. ALL SAFETY MEASURES IN PLACE, WILL CONTINUE TO MONITOR.
--- NOTE | 2021-01-24 14:21 | NUR ---
PT. WITH LOW NISHI SCALE AT HIGH RISK, CONTINUE TO FOLLOW PRESSURE INJURY PREVENTION INTERVENTIONS. -TURN AND REPOSITION PATIENT Q 2H -ASSESS AND MONITOR SKIN CONDITION DURING POSITION CHANGE -OFFLOAD BILATERAL HEELS BY PLACING PILLOWS UNDER CALVES AT ALL TIMES, UNLESS OTHERWISE CONTRAINDICATED -PRESSURE REDISTRIBUTION BY PLACING PILLOWS AND OFFLOADING SACRALCOCCYX -KEEP SKIN CLEAN AND DRY AT ALL TIMES.
--- NOTE | 2021-01-24 14:29 | NUR ---
ATTEMPTED TO REACH FACILITY PT CAME FROM TO GET CONSENT FOR EGD SINCE PT IS UNABLE TO SIGN. UNSUCCESSFUL WITH REACHING THEM. WILL ATTEMPT AGAIN.
--- NOTE | 2021-01-24 14:37 | NUR ---
CHON FROM [facility] CALLED STATED SHE WILL FAX CONFIRMATION OF CONSENT FOR EGD ONCE SHE IS ABLE TO TALK WITH DR. VALVERDE.
[2021-01-24 16:00] VITALS: BP 99/48
--- NOTE | 2021-01-24 16:01 | NUR ---
PRN ATIVAN ADMINISTERED PER MD ORDER, PT AGITATED, MOANING AND GROANING IN BED. PT BP 101/43. PT TOLERATED ADMINISTRATION.
--- NOTE | 2021-01-24 16:46 | NUR ---
PAULINO MEDICATION ADMINISTERED PER MD ORDER IN NGT. FLUSHED PRIOR AND AFTER ADMINISTRATION. PT TOLERATED ADMINISTRATION. CLEANED COLOSTOMY BAG.
--- NOTE | 2021-01-24 17:40 | NUR ---
CALLED [facility] TO ATTEMPT TO GET CONSENT FOR EGD AGAIN, UNABLE TO REACH SOMEONE. CHON NEVER CALLED BACK. WILL CONTINUE TO ATTEMPT TO GET CONSENT
--- NOTE | 2021-01-24 18:10 | NUR ---
PAULINO ABX ADMINISTERED. REASSESSED BP; 100/58. PT IS ASLEEP IN BED WITH NO S/S OF DISTRESS. WILL CONTINUE TO MONITOR.
--- NOTE | 2021-01-24 18:47 | NUR ---
RECEIVED FAXED FOR CONSENT; PLACED IN CHART.
--- NOTE | 2021-01-24 19:16 | NUR ---
REPORT GIVEN TO TESTER WASTE DISPOSAL LEAKAGE NURSE, PT IN STABLE CONDITION
--- NOTE | 2021-01-24 19:17 | NUR ---
RECD. RESTING IN BED, AWAKE, A/OX1, APHASIC. RESPIRATION EVEN AND UNLABORED. ON 02 AT 2 LITERS VIA N/C. 02 SATURATION - 98%. IV OF D5 NS 0.45% INFUSING AT 100 ML/HR, LEFT FOOT G22. WITH NGT TUBE RIGHT NARES IN PLACED. WITH MITTENS ON THE LEFT HAND, PATIENT IS TRYING TO PULL OUT NGT. COLOSTOMY BAG DRAINING MODERATE AMOUNT OF YELLOWISH LIQUID STOOLS. NO APPEARANCE OF PAIN NOTED, FLACC - 0.
--- NOTE | 2021-01-24 20:00 | NUR ---
PATIENT'S PLAN OF CARE WAS DISCUSSED AND REVIEWED WITH FREELANCE COURT STENOGRAPHER: LAQUITA GR
[2021-01-24] MEDS: TAMSULOSIN 0.4 MG CAP PO SCH (21:39)
[2021-01-24] MEDS ORDERED: CRUSHER, PILL MC ONE (21:47)
--- NOTE | 2021-01-24 21:55 | NUR ---
NGT PLACEMENT CHECKED WITH CRUZ WALKER. POSITIVE SOUNDS HEARD DURING AUSCULTATION , NGT IN PLACED. SCHEDULED MEDICATIONS GIVEN VIA NGT. TOLERATED WELL.
[2021-01-24] MEDS: PANTOPRAZOLE 40 MG INJ VIAL IVP SCH (22:17)
--- NOTE | 2021-01-24 22:17 | NUR ---
SCHEDULED PROTONIX 40 MG. AND REGLAN 5 MG. GIVEN IVP BY CRUZ MARTINEZ. PATIENT STILL SLEEPING COMFORTABLY IN BED.
--- NOTE | 2021-01-25 | NUR ---
SLEEPING COMFORTABLY IN BED.
[2021-01-25] MEDS: PIPERACILLIN/TAZOBACTAM 2.25 GM in DEXTROSE 5% 50 ML IV SCH ×4 (00:46→17:07)
--- NOTE | 2021-01-25 02:20 | NUR ---
AWAKE IN BED, NGT PULLED OUT BY PATIENT.
--- NOTE | 2021-01-25 03:00 | NUR ---
NEW NGT FR 14 INSERTED BY CHARGE NURSE NADEGE. POSITIVE PLACEMENT CONFIRMED BY RYLEE LIGHT AND CRUZ PADRON.
[2021-01-25] MEDS: DEXT 5% / NACL 0.2% 1,000 ML IV SCH ×2 (03:24→05:13)
--- NOTE | 2021-01-25 03:44 | NUR ---
Patient's Plan of Care was discussed and reviewed with OVERCOIL STEPPER: SIMÓN COELHO
[2021-01-25 04:00] VITALS: BP 99/48
--- NOTE | 2021-01-25 05:00 | NUR ---
SLEEPING SOUNDLY IN BED, NO SOB NOTED.
--- NOTE | 2021-01-25 06:00 | NUR ---
AWAKE, OCCASIONALLY IS TRYING TO PULL OUT NGT. REORIENTED TO HOSPITAL SETTING.
[2021-01-25 06:22] LABS: BASOPHILS % (AUTO) 0.1 % (0.0-2.0); EOSINOPHILS % (AUTO) 0.3 % (0.0-4.0); HEMATOCRIT 21.5 % (36-52); HEMOGLOBIN 7.3 g/dL (12.0-18.0); LYMPHOCYTES # (AUTO) 1.3 K/uL (2.0-11.5); LYMPHOCYTES % (AUTO) 12.6 % (20.5-51.1); MEAN CORPUSCULAR HEMOGLOBIN 32 pg (27-31); MEAN CORPUSCULAR HGB CONC 34 g/dL (33-37); MONOCYTES # (AUTO) 1.2 K/uL (0.8-1.0); MONOCYTES % (AUTO) 11.6 % (1.7-9.3); NEUTROPHILS # (AUTO) 7.7 K/uL (1.8-7.7); NEUTROPHILS % (AUTO) 75.4 % (42.2-75.2); PLATELET COUNT (AUTO) 151 K/uL (140-450); RED BLOOD CELL COUNT(AUTO) 2.26 MIL/uL (4.20-6.10); RED CELL DISTRIBUTION WIDTH 13.5 % (11.6-13.7); WHITE BLOOD COUNT (AUTO) 10.2 K/uL (4.8-10.8)
[2021-01-25 06:39] LABS: ALBUMIN 2.3 g/dL (3.4-5.0); ANION GAP 8.1 (8-16); CARBON DIOXIDE 29.6 mmol/L (21-32); CREATININE 1.3 mg/dL (0.6-1.3); MAGNESIUM 2.6 mg/dL (1.8-2.4); PHOSPHORUS 1.9 mg/dL (2.5-4.9); POTASSIUM 3.7 mmol/L (3.5-5.1); TOTAL BILIRUBIN 0.6 mg/dL (0.0-1.0)
[2021-01-25 06:52] LABS: PROTHROMBIN TIME 10.2 secs (10.8-13.4)
--- NOTE | 2021-01-25 07:15 | NUR ---
ENDORSED TO AM SHIFT NURSE FOR CONTINUITY OF CARE.
--- NOTE | 2021-01-25 07:16 | NUR ---
Received report from pm nurse Harriet. Pr resting in bed, awake, respirations even & nonlabored on O2 @ 2L/min via n/c. Left foot IV intact with ongoing D5 0.2%NaCl @ 100ml/hr. Bilateral wrist restraints in place to prevent from pulling NGT. NGT in place to right nostril. Bed alarm on. Call light within reach.
[2021-01-25] MEDS: METOPROLOL 25 MG TAB PO SCH (09:00)
[2021-01-25] MEDS: POLYETHYLENE GLYCOL 17 GM/PKT PO SCH (09:35)
[2021-01-25] MEDS: PANTOPRAZOLE 40 MG INJ VIAL IVP SCH (09:35)
[2021-01-25] MEDS: METOCLOPRAMIDE 10 MG/2 ML INJ VIAL IVP SCH ×4 (09:36→20:57)
[2021-01-25] MEDS: MULTIVITAMIN/MINERALS 1 TAB PO SCH (09:36)
[2021-01-25] MEDS: diazePAM 5 MG TAB PO SCH ×2 (09:36→20:42)
[2021-01-25] MEDS: SENNA 8.6 MG TAB PO SCH ×2 (09:36→20:41)
[2021-01-25] MEDS: ERYTHROMYCIN 0.5% OPTH OINT 1 GM TUBE BOTH EYES SCH (10:52)
--- NOTE | 2021-01-25 11:00 | NUR ---
Received order from Dr Morse to discontinue Erythromycin opth ointment from home med. Order noted and carried out. Patient's both eyes clear, no redness, no discharge.
[2021-01-25] MEDS ORDERED: diphenhydrAMINE 50 MG/ML VIAL ONE (11:42)
[2021-01-25] MEDS ORDERED: fentaNYL citrate 0.05 MG/ML VIAL ONE (11:43)
[2021-01-25] MEDS ORDERED: MIDAZOLAM 5 MG/5 ML VIAL ONE (11:43)
--- NOTE | 2021-01-25 12:04 | NUR ---
Patient left unit at this time via hospital for EGD, accompanied by OR nurse.
[2021-01-25] MEDS ORDERED: FUROSEMIDE 20 MG/2 ML VIAL IVP SCH (13:00)
[2021-01-25] MEDS ORDERED: MIDAZOLAM 2 MG/2 ML VIAL IVP ONE (13:10)
[2021-01-25] MEDS ORDERED: fentaNYL citrate 0.05 MG/ML VIAL IVP ONE (13:10)
--- NOTE | 2021-01-25 13:30 | NUR ---
Patient came back to room 105A s/p EGD. Pt drowsy, opens eyes to auditory stimuli. Respirations even & nonlabored on O2 @ 2L/min via n/c. NGT removed at OR. Left foot IV intact with ongoing D5 0.2% NaCl @ 10ml/hr. Addendum: 01/25/21 at 1553 by Zaida Covington RN Bilateral wrist restraints discontinued. No NGT.
[2021-01-25 16:00] VITALS: BP 96/45
[2021-01-25] MEDS ORDERED: POTASSIUM PHOSPHATE 15 MM in NACL 0.9% 250 ML IV ONE (17:05)
--- NOTE | 2021-01-25 19:10 | NUR ---
RECD, RESTING IN BED, AWAKE, ALERT/OX1, MENTALLY CHALLENGED. RESPIRATION EVEN AND UNLABORED. ON 02 AT 3 LITERS VIA N/C. IVPB OF POTASSIUM PHOSPHATE 15 MM INFUSING AT 42.5 ML/HR, LEFT FOOT G22. SAFETY MEASURES ENFORCED. SIDE RAILS UP BED IN THE LOWEST POSITION. BED ON ALARM. REORIENTED TO HOSPITAL SETTING. NEEDS REINFORCEMENT. NO APPEARANCE OF PAIN, FLACC -0.
[2021-01-25] MEDS: TAMSULOSIN 0.4 MG CAP PO SCH (20:41)
--- NOTE | 2021-01-25 20:42 | NUR ---
SCHEDULED MEDICATIONS GIVEN WITH PUDDING. ASSISTED TO EAT DINNER, ATE 90%. TOLERATED WELL.
--- NOTE | 2021-01-25 21:25 | NUR ---
Patient's Plan of Care was discussed and reviewed with BINDERY MACHINE SETTER: LAQUITA GR
--- NOTE | 2021-01-25 21:30 | NUR ---
TRYING TO TAKE OFF 02 CANNULA, REORIENTED TO HOSPITAL SETTING AND THE IMPORTANCE OF OXYGEN. UNABLE TO COMPREHEND. PUT BACK 02 CANNULA.
[2021-01-26] VITALS: BP 97/45
--- NOTE | 2021-01-26 | NUR ---
AWAKE IN BED, RESPIRATION EVEN AND UNLABORED. NO AGITATION NOTED.
[2021-01-26] MEDS: PIPERACILLIN/TAZOBACTAM 2.25 GM in DEXTROSE 5% 50 ML IV SCH ×5 (00:05→23:13)
--- NOTE | 2021-01-26 02:00 | NUR ---
ALWAYS TAKING OFF 02 CANNULA. PUT BACK AND REMINDED NOT TO TAKE IT OUT. UNABLE TO COMPREHEND.
[2021-01-26 04:00] VITALS: BP 108/64
--- NOTE | 2021-01-26 04:00 | NUR ---
NEW IV LINE INSERTED BY ER NURSE AT THE LEFT AC G22.
--- NOTE | 2021-01-26 04:30 | NUR ---
ASSISTED BUILDING ENERGY CONSULTANT TO CLEANSED AND CHANGED DIAPER. NOTED BRUISING ON THE SCROTAL AREA THROUGH PERINEUM AND BUTTOCKS. MADE COMFORTABLE IN BED WITH PILLOWS FOR COMFORT.
--- NOTE | 2021-01-26 05:00 | NUR ---
MESSAGED DR. Owen CRESPO, PATIENT ALWAYS TAKING OFF 02 CANNULA, DESATURATES TO 86 TO 89%, IF WE CAN PUT BACK SOFT WRIST RESTRAINTS.
[2021-01-26] MEDS: DEXT 5% / NACL 0.2% 1,000 ML IV SCH (05:30)
--- NOTE | 2021-01-26 06:43 | NUR ---
ON PULSE OX MONITORING, WATCHED PATIENT NOT TO TAKE OFF 02 CANNULA, 02 SAT - 93-95%.
[2021-01-26 06:45] LABS: BASOPHILS % (AUTO) 0.2 % (0.0-2.0); EOSINOPHILS # (AUTO) 0.1 K/uL (0-0.4); LYMPHOCYTES # (AUTO) 1.2 K/uL (2.0-11.5); LYMPHOCYTES % (AUTO) 16.1 % (20.5-51.1); MEAN CORPUSCULAR HEMOGLOBIN 32 pg (27-31); MEAN CORPUSCULAR HGB CONC 34 g/dL (33-37); MEAN CORPUSCULAR VOLUME 93.5 fL (80-94); MONOCYTES # (AUTO) 0.8 K/uL (0.8-1.0); MONOCYTES % (AUTO) 10.6 % (1.7-9.3); NEUTROPHILS # (AUTO) 5.3 K/uL (1.8-7.7); NEUTROPHILS % (AUTO) 71.1 % (42.2-75.2); PLATELET COUNT (AUTO) 161 K/uL (140-450); RED BLOOD CELL COUNT(AUTO) 2.14 MIL/uL (4.20-6.10); RED CELL DISTRIBUTION WIDTH 13.4 % (11.6-13.7); WHITE BLOOD COUNT (AUTO) 7.4 K/uL (4.8-10.8)
[2021-01-26 06:55] LABS: ANION GAP 7.7 (8-16); CARBON DIOXIDE 30.9 mmol/L (21-32); CREATININE 1.1 mg/dL (0.6-1.3); POTASSIUM 3.6 mmol/L (3.5-5.1)
--- NOTE | 2021-01-26 07:15 | NUR ---
CONDITION REMAIN STABLE. ENDORSED TO AM SHIFT NURSE FOR CONTINUITY OF CARE.
--- NOTE | 2021-01-26 07:30 | NUR ---
RECEIVED REPORT FROM NIGHT NURSE PT IS AWAKE, APHASIC, ON 3 LPM OXYGEN VIA NC SATURATING AT 97%, BEDBOUND, INCONTINENT,SKIN INTACT WITH SACRAL AND PERINEAL BRUISES,NGT DC YESTERDAY 01/25/21, S/P EGD 01/25/[address] VALVERDE, IV INTACT ON LEFT FOOT G22 AND RIGHT AC G 22 WITH [id number] CHLORIDE 2% AT 10 MLS/HR. OCCULT BLOOD NEGATIVE, SAFETY MEASURES IN PLACE AND CALL LIGHT WITHIN REACH. WILL CONTINUE TO MONITOR.
[2021-01-26 08:28] LABS: HEMOGLOBIN 6.8 g/dL (12.0-18.0)
[2021-01-26] MEDS: diazePAM 5 MG TAB PO SCH ×2 (08:54→20:50)
[2021-01-26] MEDS: METOCLOPRAMIDE 10 MG/2 ML INJ VIAL IVP SCH ×2 (08:54→13:11)
[2021-01-26] MEDS: MULTIVITAMIN/MINERALS 1 TAB PO SCH (08:54)
--- NOTE | 2021-01-26 09:03 | NUR ---
PT VITAL SIGNS TAKEN, PT IS STABLE. ORDERED MEDICATIONS ADMINISTERED. BREAKFAST GIVEN, TOLERATING PUREED FOOD WELL.
--- NOTE | 2021-01-26 12:16 | NUR ---
SCHEDULED MEDICATION DUE ZOSYN 2.25 GM INFUSING WELL PT EATING WELL.WILL CONTINUE TO MONITOR.
--- NOTE | 2021-01-26 13:26 | NUR ---
OBTAINED OCCULT STOOL SAMPLE AND SENT TO LAB. ADMINISTERED METOCLOPRAMIDE 5MG.
[2021-01-26] MEDS ORDERED: FUROSEMIDE 20 MG/2 ML VIAL IVP SCH (13:41)
[2021-01-26] MEDS ORDERED: POTASSIUM CHLORIDE 20% 40 MEQ/15 ML UDC GT SCH (13:45)
--- NOTE | 2021-01-26 13:45 | NUR ---
BEDSIDE WITH PT. BP 100/58, HR 58. ADMINISTERED SCHEDULED MEDICATIONS. HEP LOCK PER DR. VALVERDE. WILL CONTINUE TO MONITOR.
--- NOTE | 2021-01-26 14:10 | NUR ---
01/26/21 RD INITIAL ASSESSMENT COMPLETED PLEASE REFER TO NUTRITION ASSESSMENT UNDER CARE ACTIVITY FOR ESTIMATED NUTRITIONAL NEEDS. 1. CONTINUE PUREE DIET TOLERATED 2. CONTINUE TO PROVIDE ASSISTANCE WITH MEALS 3. RD TO FOLLOW-UP 3-5 DAYS, MODERATE RISK JANIS DAMON RD
--- NOTE | 2021-01-26 15:00 | NUR ---
CHECKED HEMOGLOBIN AND HEMATOCRIT. HEMOGLOBIN IS 7.3 AND HEMATOCRIT IS 21.7. OCCULT BLOOD NEGATIVE. NO BLOOD TRANSFUSION NEEDED. DR ZAK HEMPHILL.
[2021-01-26 16:00] VITALS: BP 94/54
[2021-01-26] MEDS: METOCLOPRAMIDE 10 MG TAB PO SCH (17:12)
[2021-01-26 17:22] LABS: HEMATOCRIT 21.7 % (36-52); HEMOGLOBIN 7.3 g/dL (12.0-18.0)
--- NOTE | 2021-01-26 17:22 | NUR ---
MEDICATION DUE GIVEN INFUSING WELL AND PT TOLERATED WELL.PT IS STABLE.
--- NOTE | 2021-01-26 19:15 | NUR ---
ENDORSED TO NIGHT NURSE FOR CONTINUITY OF CARE. PT IS STABLE.
[2021-01-26 20:00] VITALS: BP 98/63
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
[2021-01-26] MEDS: SENNA 8.6 MG TAB PO SCH (20:49)
[2021-01-26] MEDS: TAMSULOSIN 0.4 MG CAP PO SCH (20:50)
--- NOTE | 2021-01-26 23:00 | NUR ---
SCHEDULED MEDICATIONS ADMINISTERED. PT TOLERATED WELL, PERFORMED PERINEAL CARE, TURNED AND REPOSITION FOR COMFORT. SAFETY MEASURES IMPLEMENTED. CALL LIGHT WITHIN REACH.
--- NOTE | 2021-01-27 03:02 | NUR ---
PATIENT ASLEEP, NO SIGNS OF DISTRESS, SAFETY MEASURES IMPLEMENTED, AND CALL LIGHT WITHIN REACH.
[2021-01-27 04:09] VITALS: BP 100/60
[2021-01-27] MEDS: PIPERACILLIN/TAZOBACTAM 2.25 GM in DEXTROSE 5% 50 ML IV SCH (05:43)
[2021-01-27 06:29] LABS: ALBUMIN 2.4 g/dL (3.4-5.0); ANION GAP 6.5 (8-16); CARBON DIOXIDE 32.2 mmol/L (21-32); MAGNESIUM 2.4 mg/dL (1.8-2.4); PHOSPHORUS 2.2 mg/dL (2.5-4.9); POTASSIUM 3.7 mmol/L (3.5-5.1)
[2021-01-27 06:39] LABS: EOSINOPHILS # (AUTO) 0.6 K/uL (0-0.4); LYMPHOCYTES # (AUTO) 1.5 K/uL (2.0-11.5); WHITE BLOOD COUNT (AUTO) 7.4 K/uL (4.8-10.8)
[2021-01-27 06:45] LABS: BASOPHILS % (AUTO) 0.2 % (0.0-2.0); EOSINOPHILS % (AUTO) 7.9 % (0.0-4.0); HEMATOCRIT 20.5 % (36-52); LYMPHOCYTES % (AUTO) 20.3 % (20.5-51.1); MEAN CORPUSCULAR HEMOGLOBIN 32 pg (27-31); MEAN CORPUSCULAR HGB CONC 34 g/dL (33-37); MEAN CORPUSCULAR VOLUME 94.9 fL (80-94); MONOCYTES % (AUTO) 13.7 % (1.7-9.3); NEUTROPHILS # (AUTO) 4.3 K/uL (1.8-7.7); NEUTROPHILS % (AUTO) 57.9 % (42.2-75.2); PLATELET COUNT (AUTO) 187 K/uL (140-450); RED BLOOD CELL COUNT(AUTO) 2.16 MIL/uL (4.20-6.10); RED CELL DISTRIBUTION WIDTH 13.2 % (11.6-13.7)
[2021-01-27] MEDS: METOCLOPRAMIDE 10 MG TAB PO SCH ×3 (06:54→17:39)
--- NOTE | 2021-01-27 07:15 | NUR ---
RECEIVED REPORT FROM DIRECTOR SCRIPT NURSE FOR CONTINUITY OF CARE. PATIENT IN BED. BREATHING EVEN AN UNLABORED. ALL SAFETY MEASURES IN PLACE WILL CONTINUE TO MONITOR.
--- NOTE | 2021-01-27 07:37 | NUR ---
PATIENT REPORT GIVEN TO AM NURSE, PT ENDORSED IN STABLE CONDITION
[2021-01-27 08:33] LABS: HEMOGLOBIN 6.9 g/dL (12.0-18.0)
[2021-01-27] MEDS: diazePAM 5 MG TAB PO SCH ×2 (09:00→20:45)
--- NOTE | 2021-01-27 09:50 | NUR ---
PATIENT IN BED. NO ACUTE DISTRESS NOTED. ROUTINE MEDICATION GIVEN BY STUDENT NURSE AND INSTRUCTOR. ALL SAFETY MEASURES IN PLACE. WILL CONTINUE TO MONITOR.
[2021-01-27] MEDS: MULTIVITAMIN/MINERALS 1 TAB PO SCH (10:54)
--- NOTE | 2021-01-27 12:30 | NUR ---
PATIENT AWAKE. NO ACUTE DISTRESS NOTED. PATIENT BEING FED BY STUDENT NURSE. ALL SAFETY MEASURES IN PLACE. WILL CONTINUE TO MONITOR.
[2021-01-27] MEDS: PIPERACILLIN/TAZOBACTAM 3.375 GM in DEXTROSE 5% 50 ML IV SCH ×2 (13:29→20:46)
[2021-01-27] MEDS ORDERED: SODIUM PHOSPHATE 15 MMOLE in NACL 0.9% 250 ML IV SCH (14:00)
--- NOTE | 2021-01-27 14:56 | NUR ---
PATIENT IN BED. PATIENT LOOKING AT OUT THE DOOR WATCHING PEOPLE PASS BY. NO ACUTE DISTRESS NOTED. ALL SAFETY MEASURES IN PLACE.
[2021-01-27 15:03] LABS: BASOPHILS % (AUTO) 0.4 % (0.0-2.0); EOSINOPHILS # (AUTO) 0.7 K/uL (0-0.4); EOSINOPHILS % (AUTO) 9.1 % (0.0-4.0); HEMATOCRIT 21.9 % (36-52); HEMOGLOBIN 7.4 g/dL (12.0-18.0); LYMPHOCYTES # (AUTO) 1.8 K/uL (2.0-11.5); MEAN CORPUSCULAR HEMOGLOBIN 32 pg (27-31); MEAN CORPUSCULAR HGB CONC 34 g/dL (33-37); MEAN CORPUSCULAR VOLUME 95.5 fL (80-94); MONOCYTES % (AUTO) 12.8 % (1.7-9.3); NEUTROPHILS # (AUTO) 4.1 K/uL (1.8-7.7); NEUTROPHILS % (AUTO) 53.7 % (42.2-75.2); PLATELET COUNT (AUTO) 184 K/uL (140-450); RED CELL DISTRIBUTION WIDTH 13.7 % (11.6-13.7); WHITE BLOOD COUNT (AUTO) 7.6 K/uL (4.8-10.8)
[2021-01-27 16:00] VITALS: BP 107/63
--- NOTE | 2021-01-27 16:36 | NUR ---
DR. PALMER REQUEST FOR ORDER OF PRBS 2 UNITS IF HGB IS LESS THAN 7 PRN.
[2021-01-27 17:59] LABS: ALBUMIN 2.5 g/dL (3.4-5.0); BILIRUBIN,DIRECT 0.2 mg/dL (0.0-0.3); TOTAL BILIRUBIN 0.9 mg/dL (0.0-1.0)
--- NOTE | 2021-01-27 18:10 | NUR ---
PATIENT AWAKE SITTING UP I BED. NO DISTRESS NOTED. RN FEEDING PATIENT. ALL SAFETY MEASURES IN PLACE.
--- NOTE | 2021-01-27 19:15 | NUR ---
ENDORSED TO MOTEL MANAGER NURSE OF CONTINUITY OF CARE. PATIENT STABLE.
--- NOTE | 2021-01-27 19:16 | NUR ---
RECEIVED BEDSIDE ENDORSEMENT FROM AM NURSE. PATIENT IN BED AWAKE. NO SOB NOTED. CALL LIGHT WITHIN REACH. SAFETY MEASURES IN PLACE. WILL CONTINUE TO MONITOR.
[2021-01-27] MEDS: SENNA 8.6 MG TAB PO SCH (20:45)
--- NOTE | 2021-01-27 20:45 | NUR ---
DIAZEPAM 5 MG TABLET AVAILABLE, WASTED 2.5 MG AND DUE 2.5MG GIVEN ORDERED.
--- NOTE | 2021-01-27 20:46 | NUR ---
SCHEDULED MEDS GIVEN ORDERED.
[2021-01-27] MEDS: TAMSULOSIN 0.4 MG CAP PO SCH (21:13)
[2021-01-28] VITALS: BP 101/53
[2021-01-28] MEDS: PIPERACILLIN/TAZOBACTAM 3.375 GM in DEXTROSE 5% 50 ML IV SCH ×2 (04:46→13:06)
[2021-01-28 07:21] LABS: BASOPHILS % (AUTO) 0.4 % (0.0-2.0); EOSINOPHILS # (AUTO) 0.7 K/uL (0-0.4); EOSINOPHILS % (AUTO) 9.4 % (0.0-4.0); HEMATOCRIT 21.1 % (36-52); HEMOGLOBIN 7.2 g/dL (12.0-18.0); LYMPHOCYTES # (AUTO) 1.5 K/uL (2.0-11.5); LYMPHOCYTES % (AUTO) 18.8 % (20.5-51.1); MEAN CORPUSCULAR HEMOGLOBIN 32 pg (27-31); MEAN CORPUSCULAR HGB CONC 34 g/dL (33-37); MONOCYTES # (AUTO) 0.9 K/uL (0.8-1.0); NEUTROPHILS # (AUTO) 4.7 K/uL (1.8-7.7); NEUTROPHILS % (AUTO) 60.4 % (42.2-75.2); PLATELET COUNT (AUTO) 200 K/uL (140-450); RED BLOOD CELL COUNT(AUTO) 2.25 MIL/uL (4.20-6.10); RED CELL DISTRIBUTION WIDTH 13.5 % (11.6-13.7); WHITE BLOOD COUNT (AUTO) 7.8 K/uL (4.8-10.8)
[2021-01-28 07:27] LABS: ANION GAP 9.2 (8-16); CARBON DIOXIDE 28.8 mmol/L (21-32); CREATININE 0.7 mg/dL (0.6-1.3)
--- NOTE | 2021-01-28 07:34 | NUR ---
ENDORSED TO AM RN FOR CONTINUITY OF CARE. PATIENT IS STABLE.
--- NOTE | 2021-01-28 07:36 | NUR ---
RECEIVED REPORT FROM NIGHT NURSE FOR CONTINUITY OF CARE. PT IS AWAKE, APHASIC, ON 2 LPM OXYGEN VIA NC SATURATING AT 98%. RESPIRATIONS EVEN AND UNLABORED. NO DISTRESS NOTED. SKIN INTACT WITH SACRAL AND PERINEAL BRUISES, S/P REMOVAL OF NGT ON 01/25/21, S/P EGD 01/25/21, IV INTACT SITE ON LEFT FOOT G22 AND RIGHT AC G 22. IV FLUIDS INFUSING WELL. PLAN OF CARE DISCUSSED. SAFETY MEASURES IN PLACE AND CALL LIGHT WITHIN REACH. WILL CONTINUE TO MONITOR.
[2021-01-28 07:46] LABS: MAGNESIUM 2.2 mg/dL (1.8-2.4); PHOSPHORUS 2.6 mg/dL (2.5-4.9)
[2021-01-28 08:00] VITALS: BP 113/51
[2021-01-28] MEDS: MULTIVITAMIN/MINERALS 1 TAB PO SCH (08:52)
[2021-01-28] MEDS: diazePAM 5 MG TAB PO SCH (08:54)
[2021-01-28] MEDS ORDERED: FUROSEMIDE 40 MG/5 ML ORAL SOL UDC PO SCH (09:00)
--- NOTE | 2021-01-28 09:00 | NUR ---
ALL SCHEDULED MEDS GIVEN. PT IS STABLE. NO DISTRESS NOTED. WILL CONTINUE MONITOR.
--- NOTE | 2021-01-28 11:07 | NUR ---
PATIENT'S O2 SATURATION DESAT TO 84%. PLACED 2L NASAL CANNULA ON PATIENT. O2 SATURATION NOW AT 94%. WILL CONTINUE TO MONITOR. Addendum: 01/28/21 at 1130 by Bharat De La Garza RN RN PLACED 4L INSTEAD OF 2L.
--- NOTE | 2021-01-28 11:37 | NUR ---
O2 SATURATION NOW AT 100%. DECREASED O2 DOWN TO 2L NC. WILL CONTINUE TO MONITOR.
--- NOTE | 2021-01-28 13:56 | NUR ---
PATIENT SATURATING AT 96% WITH 2L NC. REMOVED 2L NC. NOW O2 SATURATION AT 94% ON ROOM AIR.
--- NOTE | 2021-01-28 15:08 | NUR ---
CHECKED ON PATIENT. PATIENT IS STABLE. NO S/S OF RESPIRATORY DISTRESS NOTED. WILL CONTINUE TO MONITOR.
--- NOTE | 2021-01-28 17:00 | NUR ---
CONTACTED [facility] AND NOTIFIED THEM THAT PATIENT WILL BE DISCHARGED TODAY. THEY ARE AWARE AND ARE SETTING TRANSPORTATION FOR PATIENT TO BE PICKED UP. WILL CONTACT WHEN THE TRANSPORTATION WILL ARRIVE;
[2021-01-28 17:05] VITALS: BP 110/56
--- NOTE | 2021-01-28 17:30 | NUR ---
ENDORSED DISCHARGE INSTRUCTIONS TO PATIENT BUT PATIENT WAS NOT ABLE TO COMPREHEND AND SIGN THE FORMS.
--- NOTE | 2021-01-28 17:45 | NUR ---
PATIENT DISCHARGED OFF THE UNIT. PICKED BY [facility] TO BE TRANSPORTED BACK TO [facility] WHERE PATIENT LIVES. PT WAS STABLE PRIOR TO DISCHARGE.
[2021-01-29 09:06] LABS: FOLIC ACID 16.7 ng/mL (>3.0); IMMUNOGLOBULIN A 239 mg/dL (61-437); IMMUNOGLOBULIN G 1101 mg/dL (603-1613); IMMUNOGLOBULIN M 55 mg/dL (20-172)
[2021-01-29 09:06] LABS: ANTI-NUCLEAR ANTIBODY TITER Negative (.)
== END 2021-01-28 17:50 | disposition home or self-care (01) | DRG 871 ==
LOC: MED 14:55 → MTU 19:14
PROVIDERS: ADMIT Preventive Medicine Preventive Medicine/Occupational Environmental Medicine; ATTEND Preventive Medicine Preventive Medicine/Occupational Environmental Medicine
PROC: 0D9670Z Drainage of Stomach with Drainage Device, Via Natural or Artificial Opening (ICD-10-PCS; 2021-01-23)
PROC: 0DJ08ZZ Inspection of Upper Intestinal Tract, Via Natural or Artificial Opening Endoscopic (ICD-10-PCS; principal; 2021-01-25 11:45)
DX: A41.9 Sepsis, unspecified organism (principal); J18.9 Pneumonia, unspecified organism; N17.0 Acute kidney failure with tubular necrosis; E43 Unspecified severe protein-calorie malnutrition; J96.00 Acute respiratory failure, unspecified whether with hypoxia or hypercapnia; J98.11 Atelectasis; E87.0 Hyperosmolality and hypernatremia; I13.0 Hypertensive heart and chronic kidney disease with heart failure and stage 1 through stage 4 chronic kidney disease, or unspecified chronic kidney disease; K92.2 Gastrointestinal hemorrhage, unspecified; D63.8 Anemia in other chronic diseases classified elsewhere; E83.39 Other disorders of phosphorus metabolism; E83.41 Hypermagnesemia; E83.51 Hypocalcemia; F79 Unspecified intellectual disabilities; G80.9 Cerebral palsy, unspecified; I50.9 Heart failure, unspecified; K21.9 Gastro-esophageal reflux disease without esophagitis; M47.812 Spondylosis without myelopathy or radiculopathy, cervical region; M81.0 Age-related osteoporosis without current pathological fracture; N40.0 Benign prostatic hyperplasia without lower urinary tract symptoms; Z88.5 Allergy status to narcotic agent; Z93.3 Colostomy status; Z91.81 History of falling; Z20.822 Contact with and (suspected) exposure to COVID-19; Z88.6 Allergy status to analgesic agent; Z68.26 Body mass index [BMI] 26.0-26.9, adult; R74.01 Elevation of levels of liver transaminase levels; E73.9 Lactose intolerance, unspecified; N18.30 Chronic kidney disease, stage 3 unspecified; R65.20 Severe sepsis without septic shock; R73.9 Hyperglycemia, unspecified
CPT/HCPCS: 36415; 70450; 71045; 72125; 72170; 73080; 74018; 74022; 80048; 80053; 80076; 81003; 82272; 82607; 82668; 82728; 82746; 82948; 83010; 83540; 83605; 83615; 83735; 83880; 84100; 84165; 84484; 85018; 85025; 85045; 85610; 85651; 85730; 86038; 86140; 86886; 86900; 86901; 87040; 87081; 87086; 93005; 96361; 96374; 96375; 99285; C9113; J1200; J1940; J2060; J2250; J2405; J2543; J2765; J3010; J7030; J7060; J8597